=== PATIENT | female | born 1980 | race Caucasian/White ===

== ENCOUNTER 2020-10-03 14:08 | Outpatient (REF) | payer MEDICAID, SELFPAY | END 2020-10-03 14:09 | disposition home or self-care (01) | LOC: HO.LAB 14:08 | PROVIDERS: Visit Provider Internal Medicine | DX: Z20.828 Contact with and (suspected) exposure to other viral communicable diseases (principal) | CPT/HCPCS: 36415; C9803; U0003 ==

== ENCOUNTER 2020-12-14 15:18 | Outpatient (REF) | payer MEDICAID, SELFPAY | END 2020-12-14 15:19 | disposition home or self-care (01) | LOC: HO.LAB 15:18 | PROVIDERS: Visit Provider Internal Medicine | DX: Z20.822 Contact with and (suspected) exposure to COVID-19 (principal) | CPT/HCPCS: 36415; C9803; U0003; U0005 ==

== ENCOUNTER 2021-07-01 10:40 | Outpatient (REF) | payer MEDICAID, SELFPAY ==
--- NOTE | ~2021-07-01 | MM_ITS ---
EXAMINATION: MM SCREENING DIGITAL BREAST TOMOSYNTHESIS, BILATERAL CLINICAL INFORMATION: Screening. Asymptomatic. No prior breast imaging. Age 41. Family history breast cancer, maternal aunt. The lifetime risk of breast cancer based on the Tyrer-Cuzick Model is 11%. COMPARISON: None (current study represents initial baseline exam). TECHNIQUE: Digital breast tomosynthesis is performed in both the craniocaudal and mediolateral oblique views along with computer-aided detection (CAD). Synthesized 2D images are generated from the tomosynthesis. FINDINGS: There are scattered areas of fibroglandular density (ACR BI-RADS breast composition Category b). There are no significant masses, abnormal calcifications, or other abnormalities. There is no architectural abnormality. The axilla and skin contours are unremarkable. MM/MM tomosynthesis screening BI IMPRESSION: No mammographic evidence of malignancy. ASSESSMENT: BI-RADS 1: Negative RECOMMENDATION: Routine annual mammography screening. This patient's information was entered into a reminder system with a target due date for their next mammogram.
== END 2021-07-01 10:41 | disposition home or self-care (01) ==
LOC: HO.MAMMO 10:40
PROVIDERS: Visit Provider Nurse Practitioner
DX: Z12.31 Encounter for screening mammogram for malignant neoplasm of breast (principal)
CPT/HCPCS: 77063; 77067

== ENCOUNTER 2022-06-07 16:19 | Emergency (ER) | payer MEDICAID, SELFPAY ==
[2022-06-07 16:31] VITALS: BP 126/87; BP 142/72; PULSE 106; PULSE 96; TEMP 37.3; O2SAT 100; O2SAT 97; BMI 32.8
[2022-06-07] MEDS: 0.9 % Sodium Chloride 1,000 ML 999 ML IVCONT (16:53)
--- NOTE | 2022-06-07 17:22 | ED.WEAKNESS ---
HPI - Weakness General Chief complaint: Weakness Stated complaint: Weakness, muscle pain Time Seen by Provider: 06/07/22 16:34 Source: patient Mode of arrival: ambulatory Limitations: no limitations and language barrier History of Present Illness HPI Narrative: 41 yo female with history of fibromyalgia, HTN, and anemia presenting with 1 week of fatigue, weakness, muscle pains. Patient states she stop treatment for fibromyalgia many years ago, and has not had a similar episode in over a year. Patient states that she has no energy and has muscle pain ?all over ?. Denies fever, nausea, vomiting, chest pain, shortness breast, cough, abdominal pain, diarrhea, urinary frequency, burning. Reports normal appetite. Denies any relieving factors, has not tried any thing for pain control. Denies any falls, is still able to perform ADLs. MD Complaint: generalized weakness and lack of energy Onset (ago): week(s) Duration: constant Location: generalized Severity: moderate Quality: aching Relieving factors: none Exacerbating factors: none Context: history of similar Related Data Previous Rx's Medication Instructions Recorded naproxen 500 mg tablet 500 mg PO BID PRN pain #20 tabs 06/07/22 Allergies Allergy/AdvReac Type Severity Reaction Status Date / Time No Known Allergies Allergy Unverified 06/14/20 17:33 Review of Systems Review of Systems: Constitutional: No Fever, No Chills, +fatigue ENT/Mouth: No sore throat, No Rhinorrhea, No Swallowing Difficulty Eyes: No Eye Pain, No Swelling, No Redness Cardiovascular: No Chest Pain, No SOB, No Orthopnea, No Edema Respiratory: No Cough, No Sputum, No Wheezing, No dyspnea Gastrointestinal: No Nausea, No Vomiting, No Diarrhea, No abdominal Pain, No Hematochezia, No Melena Genitourinary: No Dysuria, No Urinary Frequency, No Hematuria Musculoskeletal: No joint pain, + Myalgias Skin: No Skin Lesions, No rash Neuro: + Weakness, No Numbness, No Dizziness, No Headache Psych: No Anxiety/Panic, No Depression Heme/Lymph: No Bruising, No Lymphadenopathy Endocrine: No Polyuria, No Polydipsia PMFSH Social History Social History Advance Directives: No Advance Directives Information Provided: Yes Physical Exam Vital Signs: Vital Signs: Last Vital Signs Temp 99.1 F 06/07/22 16:31 Pulse 96 06/07/22 16:31 BP 142/72 H 06/07/22 16:31 Pulse Ox 97 06/07/22 16:31 O2 Del Method 06/07/22 16:31 BMI result Body Mass Index 32.8 Const: Other: Appearance: Alert. Oriented X3. Appears tired. Eyes: Pupils equal, round and reactive to light. ENT: Pharynx normal. Neck: Normal inspection. Neck supple. CVS: Normal heart rate and rhythm. Pulses normal. Respiratory: No respiratory distress. Breath sounds normal. Abdomen: Soft, nondistended and nontender. +BS x4 Skin: Skin warm and dry. Normal skin color. Normal skin turgor. No rashes. Extremities: No lower extremity edema. Neuro: Oriented X 3. No motor deficit. No sensory deficit. Strength 2/5 diffusely no focal weakness, effort dependent Course Course Course Narrative: 41 yo female with history of fibromyalgia, HTN, and anemia presenting with 1 week of fatigue, weakness, muscle pains. Patient states she stop treatment for fibromyalgia many years ago, and has not had a similar episode in over a year. On exam, patient alert and oriented, no focal weakness, no neuro deficits. Labs remarkable for HGB 10.9, HCT 35.3 -which is her baseline. Reevaluation(s) Reevaluation #1: IV Toradol and p.o. Tylenol have been ordered for her body aches and headache. She is feeling better. Her workup was unremarkable, COVID is negative. She is stable for discharge home with plan to follow-up with her PCP, will also give referral for pain management as this is chronic underlying issue. Her symptoms due to uncontrolled and untreated fibromyalgia. Stable for MDM - Weakness Lab Data Result diagrams: 06/07/22 17:45 06/07/22 17:45 Labs: Lab Results 06/07/22 06/07/22 06/07/22 Range/Units 17:45 17:45 17:45 WBC 4.1 L (4.8-10.8) X10*3/uL RBC 4.20 (4.20-5.50) X10*6/uL Hgb 10.9 L (12.0-16.0) g/dl Hct 35.3 L (37.0-47.0) % MCV 84.0 (80.0-98.0) fL MCH 26.0 L (27.0-33.0) pg MCHC 30.9 L (31.0-35.0) g/dl RDW 14.3 (11.0-16.0) % Plt Count 226 (160-400) X10*3/uL MPV 10.9 (9.4-12.3) fL Immature Gran % (Auto) 0.2 (0.0-0.4) % Neut % (Auto) 46.1 (45-73) % Lymph % (Auto) 35.8 (20-40) % [place] % (Auto) 12.5 H (2-11) % Eos % (Auto) 4.7 H (0-4) % Baso % (Auto) 0.7 (0-2) % Lymph # (Auto) 1.5 (1.2-4.9) X10*3/uL [place] # (Auto) 0.5 (0.1-1.2) X10*3/uL Eos # (Auto) 0.2 (0.0-0.4) X10*3/uL Baso # (Auto) 0.0 (0.0-0.2) X10*3/uL Abs Immat Gran (auto) 0.01 (0.00-0.03) X10*3/uL Absolute Neuts (auto) 1.9 L (2.0-8.3) x10*3/uL Absolute Nucleated RBC 0.000 (0.0-0.012) X10*3/uL Nucleated RBC % (auto) 0.0 (0.0-0.2) /100WBC Sodium 139 (135-145) mmol/L Potassium 4.2 (3.3-5.1) mmol/L Chloride 105 (96-108) mmol/L Carbon Dioxide 26 (22-29) mmol/L Anion Gap 12 (12-20) BUN 12 (9-16) mg/dL Creatinine 0.80 (0.5-1.4) mg/dL Estim Creat Clear Calc 94.0 Estimated GFR > 60 Random Glucose 105 (60-115) mg/dL Calcium 8.5 (8.4-10.2) mg/dL Magnesium 1.7 (1.6-2.6) mg/dL Total Bilirubin 0.2 (0.0-1.0) mg/dL Direct Bilirubin < 0.2 (0.0-0.5) mg/dL AST 14 (5-31) U/L ALT 13 (0-31) U/L Alkaline Phosphatase 63 (39-117) U/L Total Protein 6.9 (6.5-8.0) g/dL Albumin 3.7 (3.5-5.0) g/dL Lipase 34 (8-78) U/L COVID-19 (DELILAH) Negative (Negative) COVID-19 Clin Com See Note Critical Care Time Critical Care Time Critical Care Time: No Discharge Plan Discharge Clinical Impression: Fibromyalgia Patient Disposition: Home, Self-Care Instructions: Fibromyalgia (ED) Additional Instructions: Your lab workup today was unremarkable. Urine negative for COVID-19. Recommend taking Tylenol 975 mg every 6 hours as needed for body aches and headaches. Recommend taking the prescribed anti-inflammatory pain medication as needed for body aches and pains. Recommend following up with your PCP for further evaluation treatment. Prescriptions: New naproxen 500 mg tablet 500 mg PO BID PRN (Reason: pain) Qty: 20 0RF Referrals: [facility] [place] [facility] [Provider Group] Emi Monteiro [Primary Care Provider] - Print Language: Croatian
[2022-06-07] MEDS: ondansetron HCL 4 MG/2 ML VIAL IVPUSH (17:44)
[2022-06-07 17:50] LABS: MANUAL DIFF FLAG NO
[2022-06-07 17:55] LABS: Basophils Percent Auto 0.7 % (0-2); Eosinophils Absolute Auto 0.2 X10*3/uL (0.0-0.4); Eosinophils Percent Auto 4.7 % (0-4); Hematocrit 35.3 % (37.0-47.0); Hemoglobin 10.9 g/dl (12.0-16.0); Imm Gran Abs Auto 0.01 X10*3/uL (0.00-0.03); Imm Gran Pct Auto 0.2 % (0.0-0.4); Lymphocytes Absolute Auto 1.5 X10*3/uL (1.2-4.9); Lymphocytes Percent Auto 35.8 % (20-40); Mean Corpuscular HGB Conc 30.9 g/dl (31.0-35.0); Mean Platelet Volume 10.9 fL (9.4-12.3); Monocytes Absolute Auto 0.5 X10*3/uL (0.1-1.2); Monocytes Percent Auto 12.5 % (2-11); Neutrophils Absolute Auto 1.9 x10*3/uL (2.0-8.3); Neutrophils Percent Auto 46.1 % (45-73); Platelet Count 226 X10*3/uL (160-400); Red Cell Distribution Width 14.3 % (11.0-16.0); White Blood Count 4.1 X10*3/uL (4.8-10.8)
[2022-06-07 18:09] LABS: Alanine Aminotransferase 13 U/L (0-31); Albumin Level 3.7 g/dL (3.5-5.0); Alkaline Phosphatase 63 U/L (39-117); Anion Gap 12 (12-20); Aspartate Amino Transferase 14 U/L (5-31); Bilirubin Direct < 0.2 mg/dL (0.0-0.5); Bilirubin Total 0.2 mg/dL (0.0-1.0); Blood Urea Nitrogen 12 mg/dL (9-16); COVID-19 Test Negative (Negative); Calcium 8.5 mg/dL (8.4-10.2); Carbon Dioxide 26 mmol/L (22-29); Chloride 105 mmol/L (96-108); Estimated Glomerular Filt Rate > 60; Glucose Random 105 mg/dL (60-115); IDNOW Serial# 16C4AD1C; Lipase 34 U/L (8-78); Magnesium 1.7 mg/dL (1.6-2.6); Potassium 4.2 mmol/L (3.3-5.1); Sodium 139 mmol/L (135-145); Total Protein 6.9 g/dL (6.5-8.0)
[2022-06-07] MEDS: Acetaminophen 325 MG TABLET 975 MG PO (19:57)
[2022-06-07] MEDS: Ketorolac Tromethamine 30 MG/ML VIAL IVPUSH (19:58)
== END 2022-06-07 20:02 | disposition home or self-care (01) ==
PROVIDERS: Physician Assistant; Emergency Provider Internal Medicine; PCP Nurse Practitioner
DX: M79.7 Fibromyalgia (principal); R53.1 Weakness; Z20.822 Contact with and (suspected) exposure to COVID-19
CPT/HCPCS: 80048; 80076; 83690; 83735; 85025; 87635; 96374; 96375; 99283; 99284; J1885; J2405

== ENCOUNTER 2024-02-06 21:26 | Emergency (ER) | payer MEDICAID, SELFPAY ==
[2024-02-06 21:44] VITALS: BP 144/73; BP 169/80; PULSE 124; PULSE 28; RESP 18; TEMP 36.7; O2SAT 100; BMI 26.6
--- NOTE | 2024-02-06 21:50 | PC.NURSE ---
pt biba from home, a&ox4, respirations even and unlabored. engineering intern at bedside. pt reporting onset of facial and hand numbness with anxiety. per ems, on arrival pt family reported pt had syncopal episode. pt denies hx of anxiety in the past. pt denies chest pain, n/v/d. pt denies si/hi.
--- NOTE | 2024-02-06 22:38 | ECG_ITS ---
Test Reason : ANXIETY Blood Pressure : / mmHG Vent. Rate : 105 BPM Atrial Rate : 105 BPM P-R Int : 144 ms QRS Dur : 086 ms QT Int : 344 ms P-R-T Axes : 038 047 016 degrees QTc Int : 454 ms Sinus tachycardia Otherwise normal ECG When compared with ECG of 29-MAR-2011 02:47, No significant change was found Referred By: Jasmyn Quintana Electronically Signed By:Hai Roach
--- NOTE | 2024-02-06 22:39 | ED_ITS ---
HPI - General Adult General Chief complaint: Anxiety Stated complaint: anxiety attack Time Seen by Provider: 02/06/24 22:14 Source: patient, family and seismic interpreter Mode of arrival: ambulatory Limitations: no limitations History of Present Illness HPI narrative: 43-year-old female brought in by ambulance from home for a possible anxiety symptoms. Patient currently going through stressful events and being upset for her father who is in [facility] ICU in critical condition, patient was witnessed by her family to be anxious, tearful and crying, hyperventilating, the patient started to feel numbness in her face and both hands and both feet. Related Data Previous Rx's ?Medication ?Instructions ?Recorded naproxen 500 mg tablet 500 mg PO BID PRN pain #20 tabs 06/07/22 Allergies Allergy/AdvReac Type Severity Reaction Status Date / Time No Known Allergies Allergy Verified 02/06/24 21:46 Review of Systems 2 Review of Systems: All other systems are reviewed and are negative Constitutional: Reports as per HPI and Reports no additional constitutional complaints Eyes: Reports as per HPI and Reports no additional eye complaints Reports system reviewed and no additional complaints, except as documented Cardiovascular: Reports as per HPI and Reports no additional cardiovascular complaints Respiratory: Reports as per HPI and Reports no additional respiratory complaints Gastrointestinal: Reports as per HPI and Reports no additional gastrointestinal complaints Genitourinary: Reports no additional female genitourinary complaints Musculoskeletal: Reports no additional musculoskeletal complaints Skin/Breast: Reports system reviewed and no additional complaints, except as docu Psychiatric: Reports no additional psychiatric complaints Endocrine: Reports no additional endocrine complaints Hematologic/Lymphatic: Reports no additional hematologic/lymphatic complaints Allergic/Immunologic: Reports no additional allergic/immunologic complaints Reports system reviewed and no additional complaints, except as documented and Reports Abnormal speech present [facility] Social History Social History Smoked in Last 30 Days: No Use of substances other than those prescribed or required for medical reasons: No Advance Directives: No Advance Directives Information Provided: No Do you have a plan to hurt others: No Plan Patient : No Physical Exam ED Vital Signs: Vital Signs - 24 hr 02/06/24 21:44 02/06/24 23:01 Temperature 98.0 F 98.6 F Pulse Rate 124 H 101 H Respiratory Rate 18 20 Blood Pressure 169/80 H 149/83 H Pulse Oximetry 100 98 Oxygen Delivery Method Room Air Room Air BMI result Body Mass Index 26.6 Vital signs have been reviewed and appear to be correct. Blood pressure elevated. Heart rate normal. Respiratory rate normal. Temperature normal. Oxygen saturation normal. Appearance: Alert. Oriented X3. No acute distress. Head: Normal external exam. Normocephalic. Atraumatic. No Fontenot signs noted. No raccoon eyes noted Eyes: PERRLA. EOMI. Conjunctiva and sclera normal. Eyelids normal. ENT: TM's Normal. Pharynx normal. Uvula midline. Moist mucous membranes. No trismus noted. No drooling noted. No muffled voice noted. Neck: Normal inspection. Neck supple. FROM. No adenopathy. Thyroid Normal. No meningeal signs. No neck mass noted. CVS: Normal heart rate and rhythm. Heart sound normal. No murmurs noted. Pulses normal throughout. Respiratory: No respiratory distress. Painless inspiration. Breath sounds normal. No wheezes/rales/rhonchi noted. Chest nontender. No accessory muscle usage noted or decreased air movement noted. Abdomen: Soft and nontender. Bowel sounds normal in all 4 quadrants. No distention noted. No organomegaly noted. No visible injury noted. Back: No CVA tenderness. Full range of motion noted. Skin: Skin warm and dry. Normal skin color. Normal skin turgor. No rashes/lesions/lacerations noted. Extremities: No lower extremity edema. Extremities exhibit normal range of motion. Extremities nontender. Neuro: Oriented X 3. Cranial nerve exam: II-XII are grossly intact No motor deficit. No sensory deficit. Reflexes normal. NIH Stroke Scale Internal: Initial- Upon Arrival Time: 23:01 Level of Consciousness: Alert Level of Consciousness Questions: Answers both questions correctly Level of Consciousness Commands: Performs both tasks correctly Best Gaze: Normal Visual: No visual loss Facial Palsy: Normal Motor Arm (Right): No drift Motor Arm (Left): No drift Motor Leg (Right): No drift Motor Leg (Left): No drift Limb Ataxia: Absent Sensory: Normal Best Language: No aphasia Dysarthia: Normal Extinction and Inattention: No abnormality Score: 0 Course Reevaluation(s) Reevaluation #1: 43-year-old female came in after feeling stress life with acute panic attack with hyperventilation. Patient in the ED with received Ativan 2 mg and feels better now. No SI, no HI, no AVH. Time: 00:22 Medications Administered Discontinued Medications Generic Name Dose Route Start Last Admin Trade Name Regina PRN Reason Stop Dose Admin Lorazepam 2 mg 02/06/24 22:38 02/06/24 22:52 Lorazepam 1 Mg Tablet PO 02/06/24 22:39 2 mg ONCE ONE Administration Medical Decision Making Differential Diagnosis Differential Diagnoses: The differential diagnosis associated with the presentation includes (Anxiety, panic attack, ACS, CVA, electrolyte derangement, severe anemia.) Admission/Observation Consideration of admission/observation: Escalation of care including admission/observation considered Lab Data MDM Lab Attestation statement: I reviewed the patient's lab results. 02/06/24 23:00 02/06/24 23:00 Labs: Lab Results 02/06/24 Range/Units 23:00 WBC 5.8 (4.8-10.8) X10*3/uL RBC 4.58 (4.20-5.50) X10*6/uL Hgb 12.3 (12.0-16.0) g/dl Hct 38.0 (37.0-47.0) % MCV 83.0 (80.0-98.0) fL MCH 26.9 L (27.0-33.0) pg MCHC 32.4 (31.0-35.0) g/dl RDW 14.6 (11.0-16.0) % Plt Count 269 (160-400) X10*3/uL MPV 10.4 (9.4-12.3) fL Immature Gran % (Auto) 0.3 (0.0-0.4) % Neut % (Auto) 57.5 (45-73) % Lymph % (Auto) 29.3 (20-40) % [place] % (Auto) 8.9 (2-11) % Eos % (Auto) 3.1 (0-4) % Baso % (Auto) 0.9 (0-2) % Lymph # (Auto) 1.7 (1.2-4.9) X10*3/uL [place] # (Auto) 0.5 (0.1-1.2) X10*3/uL Eos # (Auto) 0.2 (0.0-0.4) X10*3/uL Baso # (Auto) 0.1 (0.0-0.2) X10*3/uL Abs Immat Gran (auto) 0.02 (0.00-0.03) X10*3/uL Absolute Neuts (auto) 3.4 (2.0-8.3) x10*3/uL Absolute Nucleated RBC 0.000 (0.0-0.012) X10*3/uL Nucleated RBC % (auto) 0.0 (0.0-0.2) /100WBC Sodium 140 (135-145) mmol/L Potassium 3.2 L (3.3-5.1) mmol/L Chloride 102 (96-108) mmol/L Carbon Dioxide 26 (22-29) mmol/L Anion Gap 15 (12-20) BUN 16 (9-16) mg/dL Creatinine 0.79 (0.5-1.4) mg/dL Estim Creat Clear Calc 84.1 Estimated GFR > 60 Random Glucose 104 (60-115) mg/dL Calcium 9.5 D (8.4-10.2) mg/dL Total Bilirubin 0.4 (0.0-1.0) mg/dL Direct Bilirubin 0.1 (0.0-0.5) mg/dL AST 16 (5-31) U/L ALT 10 (0-31) U/L Alkaline Phosphatase 62 (39-117) U/L Troponin I High Sens < 2.7 (<3.5-17.0) ng/L Total Protein 8.4 H (6.5-8.0) g/dL Albumin 4.3 (3.5-5.0) g/dL Lipase 25 (8-78) U/L Chronic Conditions Patient?s care impacted by: Other (Anxiety) Discharge Plan Discharge Clinical Impression: Acute anxiety, Hyperventilation, Acute hypokalemia Patient Disposition: Home, Self-Care Instructions: Hyperventilation (ED), Hypokalemia (ED) Prescriptions: No Action naproxen 500 mg tablet 500 mg PO BID PRN (Reason: pain) Qty: 20 0RF Print Language: Mohawk
[2024-02-06] MEDS: LORazepam 1 MG TABLET 2 MG PO (22:52)
--- NOTE | 2024-02-06 22:55 | PC.NURSE ---
pt medicated per mar, pt tolerated well with water.
[2024-02-06 23:01] VITALS: BP 149/83; PULSE 101; RESP 20; TEMP 37; O2SAT 98
[2024-02-06 23:06] LABS: MANUAL DIFF FLAG NO
[2024-02-06 23:07] LABS: Basophils Absolute Auto 0.1 X10*3/uL (0.0-0.2); Basophils Percent Auto 0.9 % (0-2); Eosinophils Absolute Auto 0.2 X10*3/uL (0.0-0.4); Eosinophils Percent Auto 3.1 % (0-4); Hemoglobin 12.3 g/dl (12.0-16.0); Imm Gran Abs Auto 0.02 X10*3/uL (0.00-0.03); Imm Gran Pct Auto 0.3 % (0.0-0.4); Lymphocytes Absolute Auto 1.7 X10*3/uL (1.2-4.9); Lymphocytes Percent Auto 29.3 % (20-40); Mean Corpuscular HGB Conc 32.4 g/dl (31.0-35.0); Mean Corpuscular Hemoglobin 26.9 pg (27.0-33.0); Mean Platelet Volume 10.4 fL (9.4-12.3); Monocytes Absolute Auto 0.5 X10*3/uL (0.1-1.2); Monocytes Percent Auto 8.9 % (2-11); Neutrophils Absolute Auto 3.4 x10*3/uL (2.0-8.3); Neutrophils Percent Auto 57.5 % (45-73); Platelet Count 269 X10*3/uL (160-400); Red Blood Count 4.58 X10*6/uL (4.20-5.50); Red Cell Distribution Width 14.6 % (11.0-16.0); White Blood Count 5.8 X10*3/uL (4.8-10.8)
[2024-02-06 23:21] LABS: Alanine Aminotransferase 10 U/L (0-31); Albumin Level 4.3 g/dL (3.5-5.0); Alkaline Phosphatase 62 U/L (39-117); Anion Gap 15 (12-20); Aspartate Amino Transferase 16 U/L (5-31); Bilirubin Direct 0.1 mg/dL (0.0-0.5); Bilirubin Total 0.4 mg/dL (0.0-1.0); Blood Urea Nitrogen 16 mg/dL (9-16); Calcium 9.5 mg/dL (8.4-10.2); Carbon Dioxide 26 mmol/L (22-29); Chloride 102 mmol/L (96-108); Creatinine Clr Calc Pharmacy 84.1; Estimated Glomerular Filt Rate > 60; Glucose Random 104 mg/dL (60-115); Lipase 25 U/L (8-78); Potassium 3.2 mmol/L (3.3-5.1); Sodium 140 mmol/L (135-145); Total Protein 8.4 g/dL (6.5-8.0)
[2024-02-06 23:28] LABS: Troponin-I High Sensitivity < 2.7 ng/L (<3.5-17.0)
[2024-02-07] MEDS: Potassium Chloride Packet 20 MEQ PACKET 40 MEQ PO (00:41)
[2024-02-07 00:43] VITALS: BP 149/83; PULSE 98; RESP 20; TEMP 37; O2SAT 98
== END 2024-02-07 00:44 | disposition home or self-care (01) ==
PROVIDERS: Emergency Provider Emergency Medicine
DX: F41.9 Anxiety disorder, unspecified (principal); R06.4 Hyperventilation; E87.6 Hypokalemia; F41.0 Panic disorder [episodic paroxysmal anxiety]
CPT/HCPCS: 36415; 80048; 80076; 83690; 84484; 85025; 93005; 99283; 99285

== ENCOUNTER → 2024-02-06 22:38 | Outpatient (BNV) | payer MEDICAID, SELFPAY | PROVIDERS: Emergency Provider Emergency Medicine; Visit Provider Internal Medicine Cardiovascular Disease | DX: R00.0 Tachycardia, unspecified (principal) | CPT/HCPCS: 93010 ==

== ENCOUNTER 2024-02-25 22:20 | Emergency (ER) | payer MEDICAID, SELFPAY ==
[2024-02-25 22:47] VITALS: BP 146/92; BP 158/84; PULSE 104; PULSE 86; RESP 18; TEMP 37.1; O2SAT 100; BMI 26.6
--- NOTE | 2024-02-25 23:53 | PC.NURSE ---
supplementary note: patient reports no recent drug etoh use, patient reports periodic sleep issues, denies hallucinations. denies all thought or plan to hurt self or others. patient has recently not been med compliant.
[2024-02-26 00:03] LABS: Basophils Percent Auto 0.8 % (0-2); Eosinophils Absolute Auto 0.2 X10*3/uL (0.0-0.4); Eosinophils Percent Auto 4.7 % (0-4); Hemoglobin 11.5 g/dl (12.0-16.0); Imm Gran Abs Auto 0.02 X10*3/uL (0.00-0.03); Imm Gran Pct Auto 0.4 % (0.0-0.4); Lymphocytes Absolute Auto 1.7 X10*3/uL (1.2-4.9); Lymphocytes Percent Auto 33.8 % (20-40); MANUAL DIFF FLAG NO; Mean Corpuscular HGB Conc 31.9 g/dl (31.0-35.0); Mean Corpuscular Hemoglobin 26.9 pg (27.0-33.0); Mean Corpuscular Volume 84.3 fL (80.0-98.0); Mean Platelet Volume 10.7 fL (9.4-12.3); Monocytes Absolute Auto 0.5 X10*3/uL (0.1-1.2); Monocytes Percent Auto 9.6 % (2-11); Neutrophils Absolute Auto 2.6 x10*3/uL (2.0-8.3); Neutrophils Percent Auto 50.7 % (45-73); Platelet Count 236 X10*3/uL (160-400); Red Blood Count 4.27 X10*6/uL (4.20-5.50); Red Cell Distribution Width 14.9 % (11.0-16.0); White Blood Count 5.1 X10*3/uL (4.8-10.8)
[2024-02-26 00:04] LABS: Appearance Urine Clear; Color Urine Yellow; Glucose Urine UA Negative (Negative); Leukocyte Esterase Urine Negative (Negative); Nitrite Urine Negative (Negative); UMIC TRIGGER UACC YES; Urine Blood Small (1+) (Negative); Urine Ketones Negative (Negative); Urine Protein Negative (Neg-Trace)
[2024-02-26 00:18] LABS: Bacteria Urine None Seen (None Seen); Hyaline Casts Urine 0-2 /LPF (0-2); RBC Urine 0-2 /HPF (0-2); Squamous Epithelial Cell Urine 0-2 /HPF (0-2); WBC Urine 0-5 /HPF (0-5)
[2024-02-26 00:19] LABS: Alanine Aminotransferase 8 U/L (0-31); Albumin Level 3.8 g/dL (3.5-5.0); Alkaline Phosphatase 56 U/L (39-117); Anion Gap 11 (12-20); Aspartate Amino Transferase 13 U/L (5-31); Bilirubin Total 0.1 mg/dL (0.0-1.0); Blood Urea Nitrogen 16 mg/dL (9-16); Calcium 8.9 mg/dL (8.4-10.2); Carbon Dioxide 27 mmol/L (22-29); Chloride 106 mmol/L (96-108); Creatinine Clr Calc Pharmacy 97.7; Estimated Glomerular Filt Rate > 60; Ethanol < 10 mg/dL; Glucose Random 125 mg/dL (60-115); Potassium 3.4 mmol/L (3.3-5.1); Sodium 141 mmol/L (135-145); Total Protein 7.3 g/dL (6.5-8.0)
[2024-02-26 00:21] LABS: Amphetamine Screen Urine Not Detected (Not Detect); Barbiturates, Urine Not Detected (Not Detect); Benzodiazepines Screen Urine Not Detected (Not Detect); Buprenorphine Scr Not Detected (Not Detect); Cannabinoid Screen Urine Not Detected (Not Detect); Cocaine Screen Urine Not Detected (Not Detect); Fentanyl, urine Not Detected (Not Detect); Methadone Screen, Urine Not Detected (Not Detect); Opiate Screen Urine Not Detected (Not Detect); Oxycodone Screen Urine Not Detected (Not Detect); Phencyclidine Screen Urine Not Detected (Not Detect)
--- NOTE | 2024-02-26 01:52 | ED.PSYCH ---
HPI - Psych General Chief Complaint: Psychiatric Symptoms Stated Complaint: depression, panic attack,non med compliant Time Seen by Provider: 02/26/24 00:15 Source: patient and EMS Mode of arrival: EMS Limitations: no limitations History of Present Illness ED Provider: Dr. Arleth Proctor HPI Narrative: Patient comes to the emergency room via ambulance complaining of a panic attack. Patient states that she has her father in the ICU, very sick, hospice. Patient states that she has not suicidal or homicidal. Patient got recently prescribed medications for anxiety. Patient states that today was the 1st time that she picked him up and started her treatment. Patient states that she feels very stressed and said about her father, patient worried about her kids at home. Related Data Previous Rx's ?Medication ?Instructions ?Recorded naproxen 500 mg tablet 500 mg PO BID PRN pain #20 tabs 06/07/22 Allergies Allergy/AdvReac Type Severity Reaction Status Date / Time No Known Allergies Allergy Verified 02/25/24 22:51 Review of Systems Review of Systems: Constitutional : No Weight loss, No Fever, No Chills, No Night Sweats, No Fatigue, No Malaise ENT/Mouth : No Hearing loss, No Ear Pain, No Nasal Congestion, No Sinus Pain, No Hoarseness, No sore throat, No Rhinorrhea, No Swallowing Difficulty Eyes: No Eye Pain, No Swelling, No Redness, No Foreign Body, No Discharge, No Vision Changes Cardiovascular : No Chest Pain, No SOB, No Dyspnea on Exertion, No Orthopnea, No Edema, No Palpitations Respiratory : No Cough, No Sputum, No Wheezing, No Smoke Exposure, No Dyspnea Gastrointestinal : No Nausea, No Vomiting, No Diarrhea, No Constipation, No abdominal Pain, No Hematochezia, No Melena Genitourinary : no irregular bleeding, No Dysuria, No Urinary Frequency, No Hematuria, No Urinary Incontinence, No Urgency, No Flank Pain, No Urinary Flow Changes, No Hesitancy Musculoskeletal : No joint pain, No Myalgias, No Joint Swelling Skin : No Skin Lesions, No rash Neuro : No Weakness, No Numbness, No Paresthesias, No Loss of Consciousness, No Dizziness, No Headache Psych : Complaining of anxiety, very stressed, no SI or HI Heme/Lymph: No Bruising, No Bleeding,No Lymphadenopathy Endocrine : No Polyuria, No Polydipsia, No Temperature Intolerance PMFSH Past Medical History Medical History Acute anxiety Social History Social History Advance Directives: No Advance Directives Information Provided: Yes Do you have a plan to hurt others: No Plan Physical Exam Vital Signs: Vital Signs: Last Vital Signs Temp 98.7 F 02/25/24 22:47 Pulse 86 02/25/24 22:47 Resp 18 02/25/24 22:47 BP 158/84 H 02/25/24 22:47 Pulse Ox 100 02/25/24 22:47 O2 Del Method Room Air 02/25/24 22:47 BMI result Body Mass Index 26.6 Const: Other: Appearance: Alert. Oriented X3. No acute distress. Eyes: Pupils equal, round and reactive to light. ENT: Pharynx normal. Neck: Normal inspection. Neck supple. No lymph nodes noted. No crepitus CVS: Normal heart rate and rhythm. Pulses normal. Normal S1 and S2 Respiratory: No respiratory distress. Breath sounds normal. No Wheezing. No rales Abdomen: Soft and nontender. No rigidity. No distention. Skin: Skin warm and dry. Normal skin color. Normal skin turgor. Extremities: No lower extremity edema. No Lacerations. No Rash Neuro: Oriented X 3. No motor deficit. No sensory deficit. Moving all extremities. No slurred speech. CN 2 through 12 grossly intact Psych: calm, cooperative, normal affect Medical Decision Making Medical Decision Making MDM Narrative: My interpretation of labs, normal hematology chemistry, toxicology negative, EtOH negative -patient denies SI or HI. Patient states that she started taking her treatment for anxiety today. Patient states that she had a panic attack but feels much better. Patient requesting to be discharged, needs to go visit her father in the ICU and make sure that her 3 kids are all set at home -patient is not SI no HI, section 12 not indicated. -per patient's request, patient being discharged Differential Diagnosis Differential Diagnoses: The differential diagnosis associated with the presentation includes (Anxiety, panic attack) Lab Data 02/25/24 23:56 02/25/24 23:56 Labs: Lab Results 02/25/24 02/25/24 Range/Units 23:55 23:56 WBC 5.1 (4.8-10.8) X10*3/uL RBC 4.27 (4.20-5.50) X10*6/uL Hgb 11.5 L (12.0-16.0) g/dl Hct 36.0 L (37.0-47.0) % MCV 84.3 (80.0-98.0) fL MCH 26.9 L (27.0-33.0) pg MCHC 31.9 (31.0-35.0) g/dl RDW 14.9 (11.0-16.0) % Plt Count 236 (160-400) X10*3/uL MPV 10.7 (9.4-12.3) fL Immature Gran % (Auto) 0.4 (0.0-0.4) % Neut % (Auto) 50.7 (45-73) % Lymph % (Auto) 33.8 (20-40) % [place] % (Auto) 9.6 (2-11) % Eos % (Auto) 4.7 H (0-4) % Baso % (Auto) 0.8 (0-2) % Lymph # (Auto) 1.7 (1.2-4.9) X10*3/uL [place] # (Auto) 0.5 (0.1-1.2) X10*3/uL Eos # (Auto) 0.2 (0.0-0.4) X10*3/uL Baso # (Auto) 0.0 (0.0-0.2) X10*3/uL Abs Immat Gran (auto) 0.02 (0.00-0.03) X10*3/uL Absolute Neuts (auto) 2.6 (2.0-8.3) x10*3/uL Absolute Nucleated RBC 0.000 (0.0-0.012) X10*3/uL Nucleated RBC % (auto) 0.0 (0.0-0.2) /100WBC Sodium 141 (135-145) mmol/L Potassium 3.4 (3.3-5.1) mmol/L Chloride 106 (96-108) mmol/L Carbon Dioxide 27 (22-29) mmol/L Anion Gap 11 L (12-20) BUN 16 (9-16) mg/dL Creatinine 0.76 (0.5-1.4) mg/dL Estim Creat Clear Calc 97.7 Estimated GFR > 60 Random Glucose 125 H (60-115) mg/dL Calcium 8.9 D (8.4-10.2) mg/dL Total Bilirubin 0.1 (0.0-1.0) mg/dL AST 13 (5-31) U/L ALT 8 (0-31) U/L Alkaline Phosphatase 56 (39-117) U/L Total Protein 7.3 (6.5-8.0) g/dL Albumin 3.8 (3.5-5.0) g/dL Urine Color Yellow Urine Appearance Clear Urine pH 8.0 (5.0-9.0) Ur Specific [place] 1.010 (1.005-1.025) Urine Protein Negative (Neg-Trace) mg/dL Urine Glucose (UA) Negative (Negative) mg/dL Urine Ketones Negative (Negative) mg/dL Urine Blood Small (1+) H (Negative) Urine Nitrite Negative (Negative) Ur Leukocyte Esterase Negative (Negative) Urine RBC 0-2 (0-2) /HPF Urine WBC 0-5 (0-5) /HPF Ur Squamous Epith Cells 0-2 (0-2) /HPF Urine Bacteria None Seen (None Seen) Hyaline Casts 0-2 (0-2) /LPF Urine Opiates Screen Not Detected (Not Detect) Ur Buprenorphine Scrn Not Detected (Not Detect) ng/mL Ur Oxycodone Screen Not Detected (Not Detect) ng/mL Urine Methadone Screen Not Detected (Not Detect) ng/mL Urine Fentanyl Screen Not Detected (Not Detect) Ur Barbiturates Screen Not Detected (Not Detect) Ur Phencyclidine Scrn Not Detected (Not Detect) Ur Amphetamines Screen Not Detected (Not Detect) U Benzodiazepines Scrn Not Detected (Not Detect) Urine Cocaine Screen Not Detected (Not Detect) U Marijuana (THC) Screen Not Detected (Not Detect) Ethyl Alcohol < 10 mg/dL Discharge Plan Discharge Clinical Impression: Acute anxiety Patient Disposition: Home, Self-Care Instructions: Anxiety (ED) Additional Instructions: Please follow-up with your primary care physician tomorrow. If you have any worsening or new symptoms, please return to the emergency room or call 911 Prescriptions: No Action naproxen 500 mg tablet 500 mg PO BID PRN (Reason: pain) Qty: 20 0RF Interventions: [place]-Suicide Risk Severity Scale Last Done: 02/26/24 01:52 Print Language: German
[2024-02-26 02:01] VITALS: BP 165/81; PULSE 88; RESP 16; TEMP 36.5; O2SAT 100
[2024-02-26 02:10] VITALS: BP 165/81; PULSE 88; RESP 16; TEMP 36.5; O2SAT 100
== END 2024-02-26 02:11 | disposition home or self-care (01) ==
PROVIDERS: Emergency Provider Emergency Medicine
DX: F41.9 Anxiety disorder, unspecified (principal)
CPT/HCPCS: 36415; 80053; 80307; 81001; 85025; 99283

== ENCOUNTER 2024-06-02 10:07 | Outpatient (REF) | payer MEDICAID, SELFPAY ==
[2024-06-02 11:32] LABS: MANUAL DIFF FLAG NO
[2024-06-02 11:36] LABS: Eosinophils Absolute Auto 0.2 X10*3/uL (0.0-0.4); Eosinophils Percent Auto 4.3 % (0-4); Hematocrit 36.6 % (37.0-47.0); Hemoglobin 11.6 g/dl (12.0-16.0); Imm Gran Abs Auto 0.01 X10*3/uL (0.00-0.03); Imm Gran Pct Auto 0.3 % (0.0-0.4); Lymphocytes Absolute Auto 1.7 X10*3/uL (1.2-4.9); Lymphocytes Percent Auto 42.3 % (20-40); Mean Corpuscular HGB Conc 31.7 g/dl (31.0-35.0); Mean Corpuscular Hemoglobin 26.5 pg (27.0-33.0); Mean Corpuscular Volume 83.6 fL (80.0-98.0); Mean Platelet Volume 11.5 fL (9.4-12.3); Monocytes Absolute Auto 0.4 X10*3/uL (0.1-1.2); Monocytes Percent Auto 11.2 % (2-11); Neutrophils Absolute Auto 1.6 x10*3/uL (2.0-8.3); Neutrophils Percent Auto 40.9 % (45-73); Platelet Count 235 X10*3/uL (160-400); Red Blood Count 4.38 X10*6/uL (4.20-5.50); Red Cell Distribution Width 14.6 % (11.0-16.0); White Blood Count 3.9 X10*3/uL (4.8-10.8)
[2024-06-02 12:16] LABS: Anion Gap 10 (12-20); Blood Urea Nitrogen 12 mg/dL (9-16); Calcium 9.5 mg/dL (8.4-10.2); Carbon Dioxide 27 mmol/L (22-29); Chloride 104 mmol/L (96-108); Estimated Glomerular Filt Rate > 60; Glucose Random 100 mg/dL (60-115); Sodium 137 mmol/L (135-145); TSH reflex Free T4 1.53 uIU/mL (0.32-4.0); Vitamin D 25-OH Total 26.6 ng/mL (>30)
[2024-06-02 12:17] LABS: Creatinine Urine 179.85 mg/dL; Microalbum/Creatinine Ratio Ur 3.8 ug/mg cr (<30)
== END 2024-06-02 10:08 | disposition home or self-care (01) ==
LOC: HO.HHCL 10:07
PROVIDERS: Visit Provider Nurse Practitioner Primary Care
DX: R52 Pain, unspecified (principal); I10 Essential (primary) hypertension; K59.00 Constipation, unspecified
CPT/HCPCS: 36415; 80048; 82043; 82306; 82570; 84443; 85025

== ENCOUNTER 2024-11-25 11:05 | Outpatient (REF) | payer MEDICAID, SELFPAY ==
--- OUTSIDE RECORDS SUMMARY | 2024-11-25 12:58 | XMS_ITS | Encounter Summary ---
Author Organization [employer] Address [address] [facility] [address] [place] [address] Care Team Providers Care Button Station Worker Name Role Phone Sabi Briceño MD Primary Care Pro vider Reason for Referral * Imaging (Routine) - Authorized Specialty Diagnoses / Procedures Referred By Contjose eduardo t Referred To Contact Radiology Diagnoses Screening mammogram for breast cancer Procedures BI Mammogram Screening Tomosynthesis Bilateral Ashlee Hills MD [address] [place] [address] Phone: tel: fax: [facility] [address] [place] [address] Phone: tel: fax: Referral ID Status Reason Start Date Expiration Date V isits Requested Visits Authorized [id number] Authorized 11/25/2024 11/25/2025 1 1 * Consultation (Routine) - Authorized Specialty Diagnoses / Procedures Referred By Contac t Referred To Contact Gastroenterology Diagnoses Screen for colon cancer Ashlee Hills MD [address] [place] [address] Phone: tel: fax: [facility] [address] [place], [place] Phone: tel: fax: Referral ID Status Reason Start Date Expiration Date Visits Requested Visits Authorized [id number] Authorized Specialty Services Required 11/25/2024 11/25/2025 6 6 * Consultation (Routine) - Closed Specialty Diagnoses / Procedures Referred By Jennifer biswas Referred To Contact Optometry Diagnoses Blurry vision Ashlee Hills MD [address] [place] [address] Phone: tel: fax: [facility] OPTOMETRY [address] [place] [address] Phone: tel: fax: Referral ID Status Reason Start Date Expiration Date V isits Requested Visits Authorized [id number] Closed Consult and Treat 11/25/2024 11/25/2025 1 1 Reason for Visit * Reason Comments Annual Exam Encounter Details Date Type Department Care Team (Late st Contact Info) Description 11/25/2024 10:30 AM EST Office Visit [facility] MEDICINE [address] [place] [address] Ashlee Hills MD [address] [place] [address] Class 1 obesity with serious comorbidity and body mass index (BMI) of 33.0 to 33.9 in adult, unspecified obesity type (Primary Dx); 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 (CMS/HCC); Dietary counseling; Exercise counseling; Blurry vision; Screen for colon cancer; Screening mammogram for breast cancer; Fibromyalgia; Primary hypertension Social History Tobacco Use Types Packs/Day Years Used Date Smoking Tobacco: Never Passive Smoke Exposure: Never Smokeless Tobacco: Never Tobacco Cessation:Counseling Given: Not Answered Alcohol Use Standard Drinks/Week Comments Not Currently 0 (1 standard drink = 0.6 oz pur e alcohol) Alcohol Answer Date Recorded How often do you have a drink containing alcohol ? 0 11/25/2024 How many drinks containing a lcohol do you have on a typical day when you are drinking? 0 11/25/2024 How often do you have six or more drinks on one occasion? 0 11/25/2024 Depression Answer Date Recorded Patient Health Questionnaire-9 Score 13 02/19/2024 Patient Health Questionnaire-9 Score 13 02/19/2024 Last PHQ-9: Questionnaire Data Not on file 0 02/19/2024 Housing Stability Answer Date Recorded What is your housing situation today? I have brad cerrato 06/30/[address] you li ve. Do you have problems with any of the following? Pests such as bugs, ants, or mice 06/30/2024 Food Insecurity Answer Date Recorded Within the past 12 months, y ou worried that your food would run out before you got money to buy more: Often true 06/30/2024 Within the past 12 months,th e food you bought just didn't last and you didn't have enough money to get more: Often true 11/2023 Transportation Answer Date Recorded In the past 12 months, has l ack of transportation kept you from medical appts, meetings, work or from getting things needed for daily living? No 06/30/2024 Intimate Partner Violence Answer Date R ecorded Within the last year, have y ou been afraid of your partner or ex-partner? 2 11/25/2024 Within the last year, have y ou been humiliated or emotionally abused in other ways by your partner or ex-partner? 2 Within the last year, have y ou been kicked, hit, slapped, or otherwise physically hurt by your partner or ex-partner? 2 11/25/2024 Within the last year, have y ou been raped or forced to have any kind of sexual activity by your partner or ex-partner? 2 11/25/2024 Utilities Answer Date Recorded In the past 12 months, has t he [employer], gas, oil or water company threatened to shut off services in your home? No 06/30/2024 Depression Answer Date Recorded Patient Health Questionnaire-2 Score 5 02/19/2024 Internet Access Answer Date Recorded Internet Access Q1 Yes 06/30/2024 Internet Access Q2 Not on file 06/30/2024 Comments Unknown Sex and Gender Information Value Date Recorded Sex Assigned at Female 07/28/2022 10:20 AM EDT Legal Sex Female 10:20 AM EDT Gender Identity Female 07/28/2022 10:20 AM EDT Sexual Orientation Straight 07/28/2022 10 :20 AM EDT documented as of this encounter Last Filed Vital Signs Vital Sign Reading Time Taken Comments Blood Pressure 147/87 11/25/2024 10:43 AM EST Pulse 89 11/25/2024 10:43 AM EST Temperature 36.7 ??C (98 ??F) 11/25/2024 10:43 AM EST Respiratory Rate 16 11/25/2024 10:43 AM EST Oxygen Saturation 99% 11/25/2024 10:43 AM EST Inhaled Oxygen Concentration - - Weight 86.6 kg (191 lb) 11/25/2024 10:43 AM EST Height 160 cm (5' 3 ) 11/25/2024 10:43 AM EST Body Mass Index 33.83 11/25/2024 10:43 AM EST documented in this encounter Progress Notes * Ashlee Hills MD - 11/25/2024 10:30 AM EST SUBJECTIVE: Shreya Pulliam is a 44 y.o. year old female who presents for routine physical exam. Denies recent illness, ER visit, or hospitalization. Acute Concerns: Fatigue, labs today. Sleep and appetite are ok. 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 Lives alone. No recent med changes Interim Updates: Health care maintenance -due for mammo and colon, agreeable to referral - needs vision appointment, referral placed - has dentist in place Depression/Anxiety PHQ:9 13 ,CYDNEY 16 No SI , no hallucinations , no karis -hx of Bipolar ??? - saw before-already started care w therapist at [facility], and awaiting psychiatrist -pt refuse to take Cymbalta given causing sleepiness -hydroxyzine prn Fibromyalgia -symptoms and from exam appears from her fibromyalgia -PT referred today for back pain and advised acupuntire -start Gabapentin 100 mg HS- explained possible SE -lidoderm patch HTN 06/02/2024 microalb neg -continue amlodipine 5 mg daily Neutropenia 05/2024 WBC 3.9 , hb 11.6 ANC low 1.6 ,TSH wnl,chem wnl - repeat today Patient Active Problem List Diagnosis Fibromyalgia Carpal tunnel syndrome Lumbar spondylosis Migraine Neutropenia (CMS/HCC) Overweight MDD (major depressive disorder), recurrent episode, moderate (CMS/HCC) Back pain Vitamin D deficiency Anxiety in acute stress reaction Hypertension 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 (CMS/HCC) Past Surgical History: Procedure Laterality Date ESOPHAGOSCOPY / EGD 2010 TUBAL LIGATION Bilateral 11/2018 Family History Problem Relation Name Age of Onset Diabetes Father Asthma Sister Migraines Sister Diabetes Brother Mental illness Brother Social History Social History Narrative Not on file Review of Systems Constitutional: Positive for fatigue. HENT: Negative. Respiratory: Negative. Cardiovascular: Negative. Gastrointestinal: Negative. Musculoskeletal: Negative. Psychiatric/Behavioral: Positive for dysphoric mood. OBJECTIVE: Vitals: 11/25/24 1043 BP: (!) 147/87 BP Location: Left arm Patient Position: Sitting BP Cuff Size: Adult Pulse: 89 Resp: 16 Temp: 98 ??F (36.7 ??C) TempSrc: Temporal SpO2: 99% Weight: 191 lb (86.6 kg) Height: 5' 3 (1.6 m) Physical Exam Vitals and nursing note reviewed. Constitutional: Appearance: Normal appearance. HENT: Head: Normocephalic and atraumatic. Cardiovascular: Rate and Rhythm: Normal rate and regular rhythm. Pulses: Normal pulses. Heart sounds: Normal heart sounds. Pulmonary: Effort: Pulmonary effort is normal. Breath sounds: Normal breath sounds. Skin: General: Skin is warm and dry. Neurological: General: No focal deficit present. Mental Status: She is alert and oriented to person, place, and time. Psychiatric: Mood and Affect: Mood normal. Behavior: Behavior normal. ASSESSMENT/PLAN Problem List Items Addressed This Visit Fibromyalgia Relevant Medications lidocaine (Lidoderm) 5 % patch Hypertension Relevant Medications amLODIPine (Norvasc) 5 MG tablet 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 (CMS/HCC) Other Visit Diagnoses Class 1 obesity with serious comorbidity and body mass index (BMI) of 33.0 to 33.9 in adult, unspecified obesity type - Primary Relevant Orders TSH W/Reflex to FT4 CBC auto differential Comprehensive Metabolic Panel Hemoglobin A1c Dietary counseling Exercise counseling Blurry vision Relevant Orders Referral to [facility] Eye Care Screen for colon cancer Relevant Orders Referral to Gastroenterology Screening mammogram for breast cancer Relevant Orders BI Mammogram Screening Tomosynthesis Bilateral Follow Up: per PCP recall or sooner prn No Known Allergies Current Outpatient Medications: amLODIPine (Norvasc) 5 MG tablet, Take 1 tablet (5 mg) by mouth Once per day., Disp: 90 tablet, Rfl: 3 cetirizine (ZyrTEC) 10 MG tablet, Take 1 tablet (10 mg) by mouth Once per day., Disp: 90 tablet, Rfl: 3 cholecalciferol (Vitamin D-3) 25 MCG (1000 UT) tablet, Take 1 tablet (25 mcg) by mouth Once per day., Disp: 90 tablet, Rfl: 3 gabapentin (Neurontin) 100 MG capsule, Take 1 capsule (100 mg) by mouth at bedtime., Disp: 90 capsule, Rfl: 3 hydrOXYzine pamoate (Vistaril) 25 MG capsule, Take 1 capsule (25 mg) by mouth every 8 (eight) hoursif needed for anxiety., Disp: 90 capsule, Rfl: 3 lidocaine (Lidoderm) 5 % patch, Apply 1 patch topically Once per day. Remove & discard patch within 12 hours or as directed by ., Disp: 30 patch, Rfl: 2 [place] Translation: Provided by [facility] staff member KAREL Mike documented in this encounter Plan of Treatment Upcoming Encounters Date Type Department Care Team (Late st Contact Info) Description 01/18/2025 9:15 AM EDT Office Visit [facility] MEDICINE [address] [place] [address] Sabi Briceño MD [address] [place] [address] 04/17/2025 2:00 PM EDT Office Visit [facility] OPTOMETRY [address] [place], [place] [phone] Kayy Mejia, OD [address] [place] [address] Scheduled Orders Name Type Priority Associated Diagnoses Orde r Schedule TSH W/Reflex to FT4 Lab Routine Class 1 obesity with serious comorbidity and body mass index (BMI) of 33.0 to 33.9 in adult, unspecified obesity type Expected: 11/25/2024 (Approximate), Expires: 11/25/2025 CBC auto differential Lab Routine Class 1 obesity with serious comorbidity and body mass index (BMI) of 33.0 to 33.9 in adult, unspecified obesity type Expected: 11/25/2024 (Approximate), Expires: 11/25/2025 Comprehensive Metabolic Panel Lab Routine Class 1 obesity with serious comorbidity and body mass index (BMI) of 33.0 to 33.9 in adult, unspecified obesity type Expected: 11/25/2024 (Approximate), Expires: 11/25/2025 Hemoglobin A1c Lab Routine Class 1 obesity with serious comorbidity and body mass index (BMI) of 33.0 to 33.9 in adult, unspecified obesity type Expected: 11/25/2024 (Approximate), Expires: 11/25/2025 BI Mammogram Screening Tomosynthesis Bilateral Imaging Routine Screening mammogram for breast cancer Expected: 11/25/2024, Expires: 01/23/2026 Scheduled Referrals Name Type Priority Associated Diagnoses Order Schedule Referral to [facility] Eye Care Outpatient Referral Routine Blurry vision Expected: 11/25/2024 (Approximate), Expires: 11/25/2025 Referral to Gastroenterology Outpatient Referral Routine Screen for colon cancer Expected: 11/25/2024 (Approximate), Expires: 11/25/2025 documented as of this encounter Visit Diagnoses Diagnosis Class 1 obesity with serious comorbidity and body mass index (BMI) of 33.0 to 33.9 in adult, unspecified obesity type- Primary 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 (CMS/HCC) Bipolar I disorder, most recent episode (or current) mixed, severe, specified as with psychotic behavior Dietary counseling Dietary surveillance and counseling Exercise counseling Blurry vision Other specified visual disturbances Screen for colon cancer Special screening for malignant neoplasms, colon Screening mammogram for breast cancer Fibromyalgia Unspecified myalgia and myositis Primary hypertension Unspecified essential hypertension documented in this encounter Additional Health Concerns Assessment Noted Time PHQ-9 Depression Total Score: 13 02/18/ 024 1:31 PM EDT documented as of this encounter Care Teams Button Station Worker Relationship Specialty Start Date End Date Sabi Briceño MD [address] [place] [id number] PCP - General Internal Medicine 07/07/23 documented as of this encounter
--- OUTSIDE RECORDS SUMMARY | 2024-11-25 12:58 | XMS_ITS | Encounter Summary ---
Author Organization [employer] Address [address] [facility] [place] [address] Care Team Providers Care Bilingual Legal Assistant Name Role Phone Sabi Briceño MD Primary Care Pro vider Encounter Details Date Type Department Care Team ([facility] st Contact Info) Description 11/25/2024 Telephone [facility] MEDICINE [address] [place], [place] [phone] Ashlee Hills MD [address] [place], [place] [phone] Social History Tobacco Use Types Packs/Day Years Used Date Smoking Tobacco: Never Passive Smoke Exposure: Never Smokeless Tobacco: Never Alcohol Use Standard Drinks/Week Comments Not Currently [...] the past 12 months, has t he electric, gas, oil or water company threatened to [...] AM EDT documented as of this encounter Miscellaneous Notes * Telephone Encounter - Eve Castillo - 11/25/2024 10:58 AM EST Excuse for work documented in this encounter Plan of Treatment Upcoming Encounters Date Type Department Care Team (Late st Contact Info) Description 01/18/2025 9:15 AM EDT Office Visit [facility] MEDICINE [address] [place], [place] [phone] Sabi Briceño MD [address] [place], [place] [phone] 04/17/2025 2:00 PM EDT Office Visit [facility] OPTOMETRY [address] [place], [place] [phone] Roberto, Kayy, OD [address] [place], [place] [phone] documented as of this encounter Visit Diagnoses Not on filedocumented in this encounter Additional Health Concerns Assessment Noted Time PHQ-9 Depression Total Score: 13 024 1:31 PM EDT documented as of this encounter Care Teams Bilingual Legal Assistant Relationship Specialty Start Date End Date Sabi Briceño MD [address] [place], [place] [phone] PCP - General Internal Medicine 07/07/23 documented as of this encounter
--- OUTSIDE RECORDS SUMMARY | 2024-11-25 12:58 | XMS_ITS | Encounter Summary ---
Author Organization [employer] Address [address] [place] [address] [address], [place] [address] Care Team Providers Care Supervisor [employer] Name Role Phone Sabi Briceño MD Primary Care Pro vider Reason for Visit * Reason Comments Pre-visit Planning (Unable to reach for PVP screening and or LVM) Encounter Details Date Type Department Care Team (Late st Contact Info) Description 11/11/2024 Patient Outreach [facility] [address] [place] [address] Sabi Briceño MD [address] [place] [address] Pre-visit Planning ((Unable to reach for PVP screening and or LVM)) Social History Tobacco Use Types Packs/Day Years Used Date Smoking Tobacco: Never Passive Smoke Exposure: Never Smokeless Tobacco: Never Alcohol Use Standard Drinks/Week Comments Not Currently 0 (1 standard drink = 0.6 oz pur e alcohol) Depression Answer Date Recorded Patient Health Questionnaire-9 [...] things needed for daily living? No 06/30/2024 Utilities Answer Date Recorded In the past [...] AM EDT documented as of this encounter Progress Notes * Edwina Land - 11/11/2024 9:41 AM EST CC Edwina placed outbound call to patient to complete pre-visit planning. No answer at this time. Patient name and were not confirmed. CC unable to leave a voice message. documented in this encounter Plan of Treatment Upcoming Encounters Date Type Department Care Team (Late st Contact Info) Description 01/18/2025 9:15 AM EDT Office Visit [facility] MED[facility] [address] [place] [address] Sabi Briceño MD [address] [place] [address] 04/17/2025 2:00 PM EDT Office Visit [facility] OPTOMETRY [address] [place] [address] Kayy Mejia, OD [address] [place] [address] documented as of this encounter Visit Diagnoses Not on filedocumented in this encounter Additional Health Concerns Assessment Noted Time PHQ-9 Depression Total Score: 13 024 1:31 PM EDT documented as of this encounter Care Teams Supervisor [employer] Relationship Specialty Start Date End Date Sabi Briceño MD [address] [place] [id number] PCP - General Internal Medicine 07/07/23 documented as of this encounter
--- OUTSIDE RECORDS SUMMARY | 2024-11-25 12:58 | XMS_ITS | Encounter Summary ---
Author Organization [employer] Address [address] [facility] [address] [place] [address] Care Team Providers Care Butcher Supervisor Name Role Phone Sabi Briceño MD Primary Care Pro vider Encounter Details Date Type Department Care Team (Latest Contact Info) Description 11/25/2024 Travel Social History Tobacco Use Types Packs/Day Years [...] is your housing situation today? I have braddeondre cerrato 06/30/[address] you [...] AM EDT documented as of this encounter Plan of Treatment Upcoming Encounters Date Type Department Care Team (Late st Contact Info) Description 01/18/2025 9:15 AM EDT Office Visit [facility] MEDICINE [address] [place] [address] Sabi Briceño MD [address] [place] [address] 04/17/2025 2:00 PM EDT Office Visit [facility] OPTOMETRY [address] [place] [address] Kayy Mejia, OD [address] [place] [address] documented as of this encounter Visit Diagnoses Not on filedocumented in this encounter Additional Health Concerns Assessment Noted Time PHQ-9 Depression Total Score: 13 024 1:31 PM EDT documented as of this encounter Care Teams Butcher Supervisor Relationship Specialty Start Date End Date Sabi Briceño MD [address] [place] [id number] PCP - General Internal Medicine 07/07/23 documented as of this encounter
--- OUTSIDE RECORDS SUMMARY | 2024-11-25 12:58 | XMS_ITS | Clinical Summary ---
Author Organization [employer] Address 75 [facility] 7t [place] [address] Care Team Providers Care Artist Consultant Name Role Phone Sabi Briceño MD Primary Care Pro vider Allergies No known active allergies Medications * This document contains information received from the source organization and may not represent a complete record from that organization. lidocaine (Lidoderm) 5 % patchIndication s:Fibromyalgia Apply 1 patch topically Once per day. Remove & discard patch within 12 hours or as directed by MD. 30 patch 2 11/25/19 25 Active hydrOXYzine pamoate (Vistaril) 25 MG capsule Take 1 capsule (25 mg) by mouth every 8 (eight) hours if needed for anxiety. 90 capsule 3 11/25/19 25 025 Active gabapentin (Neurontin) 100 MG capsule Take 1 capsule (100 mg) by mouth at bedtime. 90 capsule 3 11/25/19 25 026 Active cholecalciferol (Vitamin D-3) 25 MCG (1000 UT) tablet Take 1 tablet (25 mcg) by mouth Once per day. 90 tablet 3 11/25/19 25 026 Active cetirizine (ZyrTEC) 10 MG tablet Take 1 tablet (10 mg) by mouth Once per day. 90 tablet 3 11/25/19 25 026 Active amLODIPine (Norvasc) 5 MG tabletIndicatio ns:Primary hypertension Take 1 tablet (5 mg) by mouth Once per day. 90 tablet 3 11/25/19 25 026 Active cetirizine (ZyrTEC) 10 MG tablet Take 1 tablet (10 mg) by mouth Once per day. 90 tablet 02/19/20 24 025 Discontinued(Re order (will not trigger notification to Pharmacy)) amLODIPine (Norvasc) 5 MG tabletIndicatio ns:Primary hypertension Take 1 tablet (5 mg) by mouth Once per day. 30 tablet 2 07/13/20 24 025 Discontinued(Re order (will not trigger notification to Pharmacy)) lidocaine (Lidoderm) 5 % patchIndication s:Fibromyalgia Apply 1 patch topically Once per day. Remove & discard patch within 12 hours or as directed by MD. 30 patch 2 07/13/20 24 025 Discontinued(Re order (will not trigger notification to Pharmacy)) hydrOXYzine pamoate (Vistaril) 25 MG capsule Take 1 capsule (25 mg) by mouth every 8 (eight) hours if needed for anxiety for up to 10 days. 30 capsule 3 07/13/20 24 025 Discontinued(Re order (will not trigger notification to Pharmacy)) cholecalciferol (Vitamin D-3) 25 MCG (1000 UT) tablet Take 1 tablet (25 mcg) by mouth Once per day. 90 tablet 09/16/20 24 025 Discontinued(Re order (will not trigger notification to Pharmacy)) gabapentin (Neurontin) 100 MG capsule Take 1 capsule (100 mg) by mouth at bedtime. 90 capsule 09/16/20 24 025 Discontinued(Re order (will not trigger notification to Pharmacy)) ibuprofen 600 MG tabletIndicatio ns:Lumbar spondylosis Take 1 tablet (600 mg) by mouth every 8 (eight) hours if needed for moderate pain or fever. 30 tablet 10/10/19 025 cyclobenzaprine (Flexeril) 10 MG tabletIndicatio ns:Lumbar spondylosis One tab po at bedtime prn pain of muscles, do not drive with medicaion 10 tablet 10/10/19 25 025 Discontinued(Th erapy completed) Active Problems Problem Noted Date Diagnosed Date Severe mixed bipolar I disorder with psychotic f eatures 11/25/2024 Anxiety in acute stress reaction 02/20/2024 Hypertension 02/20/2024 Fibromyalgia 10/21/2022 Carpal tunnel syndrome 10/21/2022 Neutropenia 10/21/2022 Back pain 10/21/2022 Vitamin D deficiency 10/21/2022 Overweight 07/27/2018 MDD (major depressive disord er), recurrent episode, moderate 09/14/2014 Migraine 09/07/2012 Lumbar spondylosis 05/28/2012 Overview (10/10/2024): - Prescribed ibuprofen 600 MG tablet 10/10/24 - Prescribed cyclobenzaprine (Flexeril) 10 MG tablet 10/10/24 - Ordered XR Lumbar Spine 2-3 Views 10/10/24 - Referred to Physical Therapy 10/10/24 Assessment & Plan (10/10/2024 12:51 PM EST): - Prescribed ibuprofen 600 MG tablet 10/10/24 - Prescribed cyclobenzaprine (Flexeril) 10 MG tablet 10/10/24 - Ordered XR Lumbar Spine 2-3 Views 10/10/24 - Referred to Physical Therapy 10/10/24 Encounters Date Type Department Care Team Description 11/25/2024 10:30 AM EST Office Visit [address] [address] Ashlee Hills MD Class 1 obesity with serious comorbidity and body mass index (BMI) of 33.0 to 33.9 in adult, unspecified obesity type (Primary Dx); 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 (CMS/HCC); Dietary counseling; Exercise counseling; Blurry vision; Screen for colon cancer; Screening mammogram for breast cancer; Fibromyalgia; Primary hypertension 11/25/[address] [address] Ashlee Hills MD 11/25/2024 Travel 11/23/[address] [phone] Kristy Mcgowan, ANP Results 11/11/2024 Patient Outreach [address] [phone] Sabi Briceño MD Pre-visit Planning ((Unable to reach for PVP screening and or LVM)) 10/10/2024 11:15 AM EST Office Visit [address] [address] Jaqueline Vidales MD Lumbar spondylosis (Primary Dx) 10/10/2024 Telephone [facility] [address] [place] [address] Sabi Briceño MD 10/10/2024 Travel 10/06/2024 Telephone [facility] [address] [place] [address] Sabi Briceño MD Nurse Triage 09/16/2024 Refill [facility] [address] [place] [address] Sabi Briceño MD from Last 3 Months Immunizations Name Administration Dates Next Due DTaP 12/08/2017,05/17/2014,11/16/2012 Hep B, Adolescent or Pediatric 05/30/2011,2010,07/26/2009 Influenza injectable quadriv alent IIV4 with preservative 11/17/2019 Influenza injectable quadriv alent preservative free 08/07/2017 Influenza, IIV3, injectable 05/30/2011 Influenza, Split (incl. jr fied surface antigen) 07/06/2012 TD (adult), 2 Lf tetanus tox oid, preservative free, adsorbed 11/17/2019 Tdap 07/26/2009 Family History Medical History Relation Name Comments Diabetes Brother Mental illness Brother Diabetes Father Asthma Sister Migraines Sister Relation Name Status Comments Brother Father Sister Social History Tobacco Use Types Packs/Day Years [...] Orientation Straight 07/28/2022 10 :20 AM EDT Last Filed Vital Signs Vital Sign Reading [...] Mass Index 33.83 11/25/2024 10:43 AM EST Plan of Treatment Upcoming Encounters Date Type Department Care Team (Late st Contact Info) Description 01/18/2025 9:15 AM EDT Office Visit [facility] [address] [place] [address] Sabi Briceño MD [address] [place] [address] 04/17/2025 2:00 PM EDT Office Visit [facility] [address] [place] [address] Roberto, Kayy, OD [address] [place] [address] Health Maintenance Due Date Last Done Comments CT Colonography 1979 Colonoscopy 1979 Colorectal Cancer Screening 1979 FIT DNA/Cologuard 1979 FIT 1979 FOBT 1979 Sigmoidoscopy 1979 Hepatitis B Vaccines (1 of 3 - 19+ 3-dose series) 1998 05/30/2011, 10/21/2010, 07/26/2009 Mammogram 07/01/2023 07/01/2021 COVID-19 Vaccine ( season) 2024 01/10/2022, 01/10/2021 Influenza Vaccine (#1) 2024 , 08/07/2017, 07/06/2012, Additional history exists Pap Smear 06/11/2024 06/11/2021 Depression Monitoring (PHQ-9) 08/21/2024 02/19/2024, 02/19/2024 Depression Screening 02/18/2025 02/19/2024, 02/19/20 SDOH Screening 06/30/2025 06/30/2024 Alcohol/Substance Use Screening 11/25/2025 11/25/2024 Family Planning (PISQ) 11/25/2025 11/25/2024 Tobacco Screening 11/25/2025 11/25/2024 Cervical Cancer Screening 06/11/2026 HPV/Cotest 06/11/2026 06/11/2021, 08/07/2017 Lipid Panel 11/07/2027 11/07/2022, 05/15/2021 Zoster Vaccines (1 of 2) 2029 DTaP/Tdap/Td Vaccines (6 - Td or Tdap) 11/17/2029 11/17/2019, 12/08/2017, 05/17/2014, Additional history exists RSV Patients and Patients Aged 60 years or older (1 - 1-dose 75+ series) 2054 HIV Screening Completed 11/07/2022, 12/12/2019 Hepatitis C Screening Completed 11/07/2022, 020 HIB Vaccines Aged Out No longer eligi ble based on patient's age to complete this topic HPV Vaccines Aged Out No longer eligi ble based on patient's age to complete this topic Hepatitis A Vaccines Aged Out No long er eligible based on patient's age to complete this topic IPV Vaccines Aged Out No longer eligi ble based on patient's age to complete this topic Meningococcal Vaccine Aged Out No toni funmi eligible based on patient's age to complete this topic Pneumococcal Vaccine: Pediatrics (0 to 5 Years) and At-Risk Patients (6 to 49) Years) Aged Out No longer eligible based on patient's age to complete this topic RSV under 20 months Aged Out No longe r eligible based on patient's age to complete this topic Rotavirus Vaccines Aged Out No longer eligible based on patient's age to complete this topic Procedures Procedure Name Priority Date/Time Associated Diagnosis Comments HEPATITIS C AB W/REFL TO HCV RNA, QN, PCR Routine 11/07/2022 11:44 AM EST Encounter for well adult exam with abnormal findings HIV 1/2 ANTIGEN/ANTIBODY, FOURTH GENERATION W/RFL Routine 11/07/2022 11:44 AM EST Encounter for well adult exam with abnormal findings LIPID PANEL, STANDARD Routine 11/07/2022 11:44 AM EST Encounter for well adult exam with abnormal findings MAMMOGRAM GENERIC Routine 07/01/2021 10: 45 AM EDT HPV MRNA E6/E7 Routine 06/11/2021 12:00 AM EDT THINPREP PAP Routine 06/11/2021 12:00 AM EDT from Last 3 Months or Most Recently Relevant to Health Maintenance Results * Hepatitis C Antibody with Reflex to HCV, RNA, Quantitative, Real-Time PCR (11/07/2022 11:44 AM EST) Hepatitis C Antibody NON-REACT RUPINDER NON-REACT RUPINDER [facility] Index 0.04 <1.00 [facility] Comment: HCV antibody was non-reactive. There is no laboratory evidence of HCV infection. In most cases, no further action is required. However, if recent HCV exposure is suspected, a test for HCV RNA (test code 91669) is suggested. For additional information please refer to http://education.SAY Media/faq/EXK07q6 (This link is being provided for informational/ educational purposes only.) Blood Venous blood specimen / Unknown 11/07/2022 11:44 AM EST 11/07/2022 11:45 AM EST Narrative [facility] - 11/08/2022 7:04 PM EST FASTING:YES FASTING: YES us Dorothea Clifford TRAILER PARK MANAGER LAB BLOOD ORDERABLES Final Result [facility] [address], [place] [address] [facility] 200 [facility], (Nl2) [place] [address] * HIV-1/2 Antigen and Antibodies, Fourth Generation, with Reflexes (11/07/2022 11:44 AM EST) Pathologist [facility] HIV Antigen/Antibody, 4th Generation NON-REAC TIVE NON-REAC TIVE [facility] [place] opinions.h Comment: HIV-1 antigen and HIV-1/HIV-2 antibodies were not detected. There is no laboratory evidence of HIV infection. PLEASE NOTE: This information has been disclosed to you from records whose confidentiality may be protected by state law. ??If your state requires such protection, then the state law prohibits you from making any further disclosure of the information without the specific written consent of the person to whom it pertains, or as otherwise permitted by law. A general authorization for the release of medical or other information is NOT sufficient for this purpose. ?? For additional information please refer to http://education.SAY Media/faq/EWG222 (This link is being provided for informational/ educational purposes only.) The performance of this assay has not been clinically validated in patients less than 2 years old. Blood Venous blood specimen / Unknown 11/07/2022 11:44 AM EST 11/07/2022 11:45 AM EST Narrative [facility] - 11/08/2022 7:04 PM EST FASTING:YES FASTING: YES Dorothea Clifford [facility] LAB BLOOD ORDERABLES Final Result [facility] [address], [place] [address] [facility] [place] [employer] 200 [facility], (Nl2) [place] [address] * (ABNORMAL) Lipid Panel, Standard (11/07/2022 11:44 AM EST) Pathologist [facility] Cholesterol, Total 214(H) <200 mg/dL [facility] [place] opinions[facility] HDL Cholesterol 73 > OR = 50 mg/dL [facility] [place] [employer] Triglycerides 119 <150 mg/dL [facility] [place] [employer] LDL Cholesterol 118(H) mg/dL (calc) [facility] [place] opinions[facility]h Comment: Reference range: <100 Desirable range <100 mg/dL for primary prevention; ?? <70 mg/dL for patients with CHD or diabetic patients with > or = 2 CHD risk factors. LDL-C is now calculated using the Balwinder calculation, which is a validated novel method providing better accuracy than the Friedewald equation in the estimation of LDL-C. Jerry MCCRACKEN et al. KIYA. 2013;310(19): 9192-7693 (http://education.Coupons.com/faq/POL618) Chol/HDLC Ratio 2.9 <5.0 (calc) [facility] Non-HDL Cholesterol 141(H) <130 mg/dL (calc) [facility] Comment: For patients with diabetes plus 1 major ASCVD risk factor, treating to a non-HDL-C goal of <100 mg/dL (LDL-C of <70 mg/dL) is considered a therapeutic option. Blood Venous blood specimen / Unknown 11/07/2022 11:44 AM EST 11/07/2022 11:45 AM EST Narrative [facility] - 11/08/2022 7:04 PM EST FASTING:YES FASTING: YES Dorothea Clifford TRAILER PARK MANAGER LAB BLOOD ORDERABLES Final Result [address], [place] [address] [facility] [place] opinions[facility] 200 [facility], (Nl[address]) [place] [address] * Mammography Report 1 (07/01/2021 10:45 AM EDT) Anatomical Region Laterality Modality Breast Bilateral Mammography 07/01/2021 10:4 5 AM EDT Narrative 07/02/2021 10:32 AM EDT Refer to the Notes tab for result details [facility] Procedure: Mammography Report 1 Procedure Note Provider, MD Taisha - 12/21/2022 Refer to the Notes tab for result details [facility] Procedure: Mammography Report 1 Emi Monteiro DEDICATED REGIONAL DRIVER IMG BI PROCEDURES Final Result * THINPREP PAP (06/11/2021 12:00 AM EDT) Pathologist [facility] Clinical Information: None given [facility] COMMENT SEE COMMENT [facility] Comment: EXPLANATORY NOTE: ? The Pap is a screening test for cervical cancer. It is ?? not a diagnostic test and is subject to false negative ?? and false positive results. It is most reliable when a ?? satisfactory sample, regularly obtained, is submitted ?? with relevant clinical findings and history, and when ?? the Pap result is evaluated along with historic and ?? current clinical information. ?? Hand Trimmer : SEE COMMENT [facility] Comment: RXB, CT(ASCP) CT screening location: [address] ??[id number] Interpretation/R esult: Negative for intraepithelial lesion or malignancy. [facility] LMP: NONE GIVEN [facility] Prev. BX: NONE GIVEN [facility] Prev. PAP: NONE GIVEN [facility] SOURCE: None given [facility] Statement Of Adequacy: SEE COMMENT [facility] Comment: Satisfactory for evaluation. Endocervical/transformation zone component present. Age and/or menstrual status not provided 06/11/2021 Emi Monteiro DEDICATED REGIONAL DRIVER LAB PATHOLOGY ORDERABLES Final Result [facility] [address] * HPV mRNA E6/E7 (06/11/2021 12:00 AM EDT) HPV nRNA E6/E7 Not Detected Not Detected [facility] Comment: Methodology: Stamping Bench Die Maker-Mediated Amplification This assay detects E6/E7 viral messenger RNA (mRNA) from 14 high-risk HPV types (16,18,31,33,35,39,45,51,52,56,58,59,66,68). ? The analytical performance characteristics of this assay have been determined by [facility]. The modifications have not been cleared or approved by the FDA. This assay has been validated pursuant to the CLIA regulations and is used for clinical purposes. ?? For additional information, please refer to http://education.SAY Media/faq/IEM472w4 (This link if provided for information/ educational purposes only.) 06/11/2021 us Emi Monteiro NP LAB BLOOD ORDERABLES Final Resu lt [facility] [address] from Last 3 Months or Most Recently Relevant to Health Maintenance Insurance [employer] Care Teams Artist Consultant Relationship Specialty Start Date End Date Sabi Briceño MD [address] [place] [id number] PCP - General Internal Medicine 07/07/23
--- OUTSIDE RECORDS SUMMARY | 2024-11-25 12:58 | XMS_ITS | Encounter Summary ---
Author Organization [employer] Address 75 [facility] 7t [place] [address] Care Team Providers Care Rod Puller Name Role Phone Sabi Briceño MD Primary Care Pro vider Reason for Visit * Reason Onset Date Comments Results 11/23/2024 Encounter Details Date Type Department Care Team ([facility] st Contact Info) Description 11/23/2024 Telephone [facility] [address] [place] [address] Kristy Mcgowan, ANP [address] [place] [address] Results Social History Tobacco Use Types Packs/Day Years [...] encounter Miscellaneous Notes * Telephone Encounter - Emelia Landry RN - 11/23/2024 4:16 PM EST Telephone call to pt using [employer] official court interpreter Adelia #[id number]. Advised pt that labs showed low vitamin D levels, otherwise labs were normal. Reviewed with pt importance of increasing dietary supplements or taking OTC medication for vitamin D (400ius). Pt reports already taking Vit D med prescribed last year. Advised her to continue this. Pt verbalized understanding, no further questions. * Telephone Encounter - Emelia Landry RN - 11/23/2024 4:03 PM EST ----- Message from Kristy Mcgowan sent at 11/23/2024 3:01 PM EST ----- Please let this patient know that her labs were normal with the exception of her vitamin D which was a tiny bit low. Recommend vitamin D rich foods. Could take an [id number] vitamin D supplement with 400 IU daily. This is the amount typically and most multivitamins as well. Apologies for the delay in letting her know the results. documented in this encounter Plan of Treatment Upcoming Encounters Date Type Department Care Team (Late st Contact Info) Description 01/18/2025 9:15 AM EDT Office Visit [facility] [address] [place] [address] Sabi Briceño MD [address] [place] [address] 04/17/2025 2:00 PM EDT Office Visit [facility] [address] [place], [place] [phone] Roberto, Kayy, OD [address] [place], [place] [phone] documented as of this encounter Visit Diagnoses Not on filedocumented in this encounter Additional Health Concerns Assessment Noted Time PHQ-9 Depression Total Score: 13 024 1:31 PM EDT documented as of this encounter Care Teams Rod Puller Relationship Specialty Start Date End Date Sabi Briceño MD [address] [place], [place] [phone] PCP - General Internal Medicine 07/07/23 documented as of this encounter
[2024-11-25 13:37] LABS: MANUAL DIFF FLAG NO
[2024-11-25 13:51] LABS: Basophils Percent Auto 1.1 % (0-2); Eosinophils Absolute Auto 0.1 X10*3/uL (0.0-0.4); Hematocrit 37.4 % (37.0-47.0); Hemoglobin 11.8 g/dl (12.0-16.0); Imm Gran Abs Auto 0.01 X10*3/uL (0.00-0.03); Imm Gran Pct Auto 0.3 % (0.0-0.4); Lymphocytes Absolute Auto 1.6 X10*3/uL (1.2-4.9); Lymphocytes Percent Auto 44.7 % (20-40); Mean Corpuscular HGB Conc 31.6 g/dl (31.0-35.0); Mean Corpuscular Hemoglobin 26.7 pg (27.0-33.0); Mean Corpuscular Volume 84.6 fL (80.0-98.0); Mean Platelet Volume 11.2 fL (9.4-12.3); Monocytes Absolute Auto 0.4 X10*3/uL (0.1-1.2); Monocytes Percent Auto 9.8 % (2-11); Neutrophils Absolute Auto 1.5 x10*3/uL (2.0-8.3); Neutrophils Percent Auto 41.1 % (45-73); Platelet Count 258 X10*3/uL (160-400); Red Blood Count 4.42 X10*6/uL (4.20-5.50); Red Cell Distribution Width 14.8 % (11.0-16.0); White Blood Count 3.7 X10*3/uL (4.8-10.8)
[2024-11-25 14:18] LABS: Estimated Average Glucose 114 mg/dL; Hemoglobin A1C 118.8604 umol/L; Hemoglobin A1c % 5.6 % (<6.0); Total Hemoglobin (HGBA1C) 3145.2771 umol/L
[2024-11-25 14:31] LABS: Alanine Aminotransferase 12 U/L (0-31); Alkaline Phosphatase 61 U/L (39-117); Anion Gap 10 (12-20); Aspartate Amino Transferase 22 U/L (5-31); Bilirubin Total 0.3 mg/dL (0.0-1.0); Blood Urea Nitrogen 12 mg/dL (9-16); Calcium 8.9 mg/dL (8.4-10.2); Carbon Dioxide 26 mmol/L (22-29); Chloride 107 mmol/L (96-108); Estimated Glomerular Filt Rate > 60; Glucose Random 92 mg/dL (60-115); Sodium 139 mmol/L (135-145); TSH reflex Free T4 1.75 uIU/mL (0.32-4.0); Total Protein 8.2 g/dL (6.5-8.0)
== END 2024-11-25 11:06 | disposition home or self-care (01) ==
LOC: HO.HHCL 11:05
PROVIDERS: Visit Provider General Practice
DX: E66.811 Obesity, class 1 (principal); Z68.33 Body mass index [BMI] 33.0-33.9, adult
CPT/HCPCS: 36415; 80053; 83036; 84443; 85025

== ENCOUNTER 2024-12-12 15:37 | Outpatient (REF) | payer MEDICAID, SELFPAY ==
--- OUTSIDE RECORDS SUMMARY | 2024-12-12 18:04 | XMS_ITS | Encounter Summary ---
Author Organization [employer] Address [address] [facility] [address] 7[address] [place] [address] Care Team Providers Care Chief Scientist Name Role Phone Sbai Briceño MD Primary Care Pro vider Encounter Details Date Type Department Care Team ([facility] st Contact Info) Description 11/25/2024 Telephone [facility] [address] [place], [place] [phone] Ashlee Hills MD 230 [place], [place] [phone] Social History Tobacco Use Types Packs/Day Years [...] Description 01/18/2025 9:15 AM EDT Office Visit [facility] [address] [place], [place] [phone] Sabi Briceño MD [address] [place], [place] [phone] 04/17/2025 2:00 PM EDT Office Visit [facility] [address] [place], [place] [phone] Roberto, Kayy, OD [address] [place], [place] [phone] documented as of this encounter Visit Diagnoses Not on filedocumented in this encounter Additional Health Concerns Assessment Noted Time PHQ-9 Depression Total Score: 13 024 1:31 PM EDT documented as of this encounter Care Teams Chief Scientist Relationship Specialty Start Date End Date Sabi Briceño MD [address] [place], [place] [phone] PCP - General Internal Medicine 07/07/23 documented as of this encounter
--- OUTSIDE RECORDS SUMMARY | 2024-12-12 18:04 | XMS_ITS | Encounter Summary ---
Author Organization [employer] Address 75 [facility] 7t [place] [address] Care Team Providers Care Roller Stitcher Name Role Phone Sabi Briceño MD Primary [...] Description 01/18/2025 9:15 AM EDT Office Visit [facility] [address] [place] [address] Sabi Briceño MD [address] [place] [address] 04/17/2025 2:00 PM EDT Office Visit [facility] [address] [place] [address] Kayy Mejia, OD [address] [place] [address] documented as of this encounter Visit Diagnoses Not on filedocumented in this encounter Additional Health Concerns Assessment Noted Time PHQ-9 Depression Total Score: 13 024 1:31 PM EDT documented as of this encounter Care Teams Roller Stitcher Relationship Specialty Start Date End Date Sabi Briceño MD [address] [place] [address] PCP - General Internal Medicine 07/07/23 documented as of this encounter
--- OUTSIDE RECORDS SUMMARY | 2024-12-12 18:04 | XMS_ITS | Encounter Summary ---
Author Organization [employer] Address 75 [facility] 7t [place] [address] Care Team Providers Care Tray Drier Name Role Phone Sabi Briceño MD Primary Care Pro vider Reason for Visit * Reason Onset Date Comments Results 11/23/2024 Encounter Details Date Type Department Care Team ([facility] st Contact Info) Description 11/23/2024 Telephone [facility] [address] [place] [address] Kristy Mcgowan, ANP [address] [place] [address] Results Social History Tobacco Use Types Packs/Day [...] Miscellaneous Notes * Telephone Encounter - Emelia Ayoub RN - 11/23/2024 4:16 PM EST Telephone call to pt using [employer] claims associate Adelia #[id number]. Advised pt that labs showed low vitamin D levels, otherwise labs were normal. Reviewed with pt importance of increasing dietary supplements or taking OTC medication for vitamin D (400ius). Pt reports already taking Vit D med prescribed last year. Advised her to continue this. Pt verbalized understanding, no further questions. * Telephone Encounter - Emelia Ayoub RN - 11/23/2024 4:03 PM EST ----- Message from Kristy Mcgowan sent at 11/23/2024 3:01 PM EST ----- Please let this patient know that her labs were normal with the exception of her vitamin D which was a tiny bit low. Recommend vitamin D rich foods. Could take an bhzi-[id number]-xvglmwt vitamin D supplement with 400 IU daily. This is the amount typically and most multivitamins as well. Apologies for the delay in letting her know the results. documented in this encounter Plan of Treatment Upcoming Encounters Date Type Department Care Team (Late st Contact Info) Description 01/18/2025 9:15 AM EDT Office Visit [facility] [address] [place] [address] Sabi Briceño MD [address] [place] [address] 04/17/2025 2:00 PM EDT Office Visit [facility] [address] [place] [address] Roberto, Kayy, OD [address] [place] [address] documented as of this encounter Visit Diagnoses Not on filedocumented in this encounter Additional Health Concerns Assessment Noted Time PHQ-9 Depression Total Score: 13 024 1:31 PM EDT documented as of this encounter Care Teams Tray Drier Relationship Specialty Start Date End Date Sabi Briceoñ MD [address] [place] [phone] PCP - General Internal Medicine 07/07/23 documented as of this encounter
--- OUTSIDE RECORDS SUMMARY | 2024-12-12 18:04 | XMS_ITS | Encounter Summary ---
Author Organization [employer] Address [address] [place] [address] Care Team Providers Care Spine Surgeon Name Role Phone Sabi Briceño MD Primary Care Pro vider Reason for Referral * Imaging (Routine) - Authorized Specialty Diagnoses / Procedures Referred By Contjose eduardo t Referred To Contact Radiology Diagnoses Screening mammogram for breast cancer Procedures BI Mammogram Screening Tomosynthesis Bilateral Ashlee Hills MD [address] [place] [address] Phone: tel: fax: [facility] [address] [place] [address] Phone: tel: fax: Referral ID Status Reason Start Date Expiration Date V isits Requested Visits Authorized [id number] Authorized 11/25/2024 11/25/2025 1 1 * Consultation (Routine) - Authorized Specialty Diagnoses / Procedures Referred By Contac t Referred To Contact Gastroenterology Diagnoses Screen for colon cancer Ashlee Hills MD [address] [place] [address] Phone: tel: fax: [facility] [address] [place], [place] Phone: tel: fax: Referral ID Status Reason Start Date Expiration Date Visits Requested Visits Authorized [id number] Authorized Specialty Services Required 11/25/2024 11/25/2025 6 6 * Consultation (Routine) - Closed Specialty Diagnoses / Procedures Referred By Jennifer biswas Referred To Contact Optometry Diagnoses Blurry vision Ashlee Hills MD [address] [place] [address] Phone: tel: fax: [facility] [address] [place] [address] Phone: tel: fax: Referral ID Status Reason Start Date Expiration Date V isits Requested Visits Authorized [id number] Closed Consult and Treat 11/25/2024 11/25/2025 1 1 Reason for Visit * Reason Comments Annual Exam Encounter Details Date Type Department Care Team (Late st Contact Info) Description 11/25/2024 10:30 AM EST Office Visit [facility] [address] [place] [address] Ashlee Hills MD [address] [place] [address] Class 1 obesity with serious comorbidity and [...] the past 12 months, has t he [employer], gas, oil or water company threatened to [...] and appetite are ok. Works as a PROGRAM OR PROJECT ADMINISTRATOR, cleaning. Lives alone. No recent med changes Interim Updates: Health care maintenance -due for mammo and colon, agreeable to referral - needs vision appointment, referral placed - has dentist in place Depression/Anxiety PHQ:9 13 ,CYDNEY 16 No SI , no hallucinations , no karis -hx of Bipolar ??? - saw before-already started care w therapist at [facility], and awaiting psychiatrist -pt refuse to take [...] counseling Blurry vision Relevant Orders Referral to [facility] Screen for colon cancer [...] by ., Disp: 30 patch, Rfl: 2 [place] Translation: Provided by [facility] staff member KAREL Mike documented in this encounter Plan of Treatment Upcoming Encounters Date Type Department Care Team (Late st Contact Info) Description 01/18/2025 9:15 AM EDT Office Visit [facility] [address] [place] [address] Sabi Briceño MD [address] [place] [address] 04/17/2025 2:00 PM EDT Office Visit [facility] [address] [place] [address] Kayy Mejia, OD [address] [place] [address] Scheduled Orders Name Type Priority Associated Diagnoses Orde r Schedule BI Mammogram Screening Tomosynthesis Bilateral Imaging Routine Screening mammogram for breast cancer Expected: 11/25/2024, Expires: 01/23/2026 Scheduled Referrals Name Type Priority Associated Diagnoses Order Schedule Referral to [facility] Outpatient Referral Routine Blurry vision Expected: 11/25/2024 (Approximate), Expires: 11/25/2025 Referral to Gastroenterology Outpatient Referral Routine Screen for colon cancer Expected: 11/25/2024 (Approximate), Expires: 11/25/2025 documented as of this encounter Procedures Procedure Name Priority Date/Time Associated Diagnosis Comments TSH W/REFLEX TO FT4 Routine 11/25/2024 1 1:08 AM EST Class 1 obesity with serious comorbidity and body mass index (BMI) of 33.0 to 33.9 in adult, unspecified obesity type CBC WITH AUTO DIFFERENTIAL Routine 11/25/2024 11:08 AM EST Class 1 obesity with serious comorbidity and body mass index (BMI) of 33.0 to 33.9 in adult, unspecified obesity type HEMOGLOBIN A1C Routine 11/25/2024 11:08 AM EST Class 1 obesity with serious comorbidity and body mass index (BMI) of 33.0 to 33.9 in adult, unspecified obesity type COMPREHENSIVE METABOLIC PANEL Routine 11/25/2024 11:08 AM EST Class 1 obesity with serious comorbidity and body mass index (BMI) of 33.0 to 33.9 in adult, unspecified obesity type documented in this encounter Results * Hemoglobin A1c (11/25/2024 11:08 AM EST) Hemoglobin A1c 5.6 <6.0 % [facility] Comment:Hemoglobin A1C Refer ence Range Adults: 4.8 - 6.0 % Non diabetic: < 6.0 % Goal: < 7.0 %Additional Action Suggested: > 8.0 %Note: Hemoglobin A1c results are invalid for patients with abnormal amounts of HbF. Blood transfusions may impact the HbA1c concentration in the patient sample. Estimated Average Glucose 114 mg/dL [facility] Comment:eAG = Estimated ave rage glucose which is %A1C expressed asaverage glucose, using the formula of the L1Z-[id number] Glucose study (ADAG), Diabetes Care, Vol.31,#8,Apr. 2007 Blood Venous blood specimen / Unknown 11/25/2024 11:08 AM EST 11/25/2024 1:30 PM EST us Ashlee Hills MD LAB BLOOD ORDERABLES Final Res ult [facility] [address] [place] [address] [phone] * (ABNORMAL) Comprehensive Metabolic Panel (11/25/2024 11:08 AM EST) Sodium 139 135 - 145 mmol/L [facility] Potassium 4.0 3.3 - 5.1 mmol/L [facility] Chloride 107 96 - 108 mmol/L [facility] Carbon Dioxide 26 22 - 29 mmol/L [facility] Anion Gap 10(L) 12 - 20 [facility] Urea Nitrogen (BUN) 12 9 - 16 mg/dL [facility] Creatinine, Serum 0.72 0.5 - 1.4 mg/dL [facility] Estimated Glomerular Filt Rate >60 [facility] Comment:Chronic Kidney Disea se: Estimated GFR < 60 mL/min/[id number] Kidney Disease: Estimated GFR < 15 mL/min/1.73m2 Glucose 92 60 - 115 mg/dL [facility] Calcium 8.9 8.4 - 10.2 mg/dL [facility] Bilirubin, Total 0.3 0.0 - 1.0 mg/dL [facility] Aspartate Amino Transferase 22 5 - 31 U/L [facility] Alanine Aminotransferase 12 0 - 31 U/L [facility] Total Protein 8.2(H) 6.5 - 8.0 g/dL [facility] Albumin Level 4.0 3.5 - 5.0 g/dL [facility] Alkaline Phosphatase 61 39 - 117 U/L [facility] Blood Venous blood specimen / Unknown 11/25/2024 11:08 AM EST 11/25/2024 1:30 PM EST us Ashlee Hills MD LAB BLOOD ORDERABLES Final Res ult Performing Organization Address [facility]/ZIP Co de Phone Number [facility] [address] [place] [address] [phone] * (ABNORMAL) CBC auto differential (11/25/2024 11:08 AM EST) White Blood Count 3.7(L) 4.8 - 10.8 X10*3/uL [facility] Red Blood Count 4.42 4.20 - 5.50 X10*6/uL [facility] Hemoglobin 11.8(L) 12.0 - 16.0 g/dl [facility] Hematocrit 37.4 37.0 - 47.0 % [facility] Mean Corpuscular Volume 84.6 80.0 - 98.0 fL [facility] Mean Corpuscular Hemoglobin 26.7(L) 27.0 - 33.0 pg [facility] Mean Corpuscular HGB Conc 31.6 31.0 - 35.0 g/dl [facility] Red Cell Distribution Width 14.8 11.0 - 16.0 % [facility] Platelet Count 258 160 - 400 X10*3/uL [facility] Mean Platelet Volume 11.2 9.4 - 12.3 fL [facility] Neutrophils Percent Auto 41.1(L) 45 - 73 % [facility] Imm Gran Pct Auto 0.3 0.0 - 0.4 % [facility] Lymphocytes Percent Auto 44.7(H) 20 - 40 % [facility] Monocytes Percent Auto 9.8 2 - 11 % [facility] Eosinophils Percent Auto 3.0 0 - 4 % [facility] Basophils Percent Auto 1.1 0 - 2 % [facility] NRBC Pct Auto 0.0 0.0 - 0.2 /100WBC [facility] Neutrophils Absolute Auto 1.5(L) 2.0 - 8.3 x10*3/uL [facility] Imm Gran Abs Auto 0.01 0.00 - 0.03 X10*3/uL [facility] Lymphocytes Absolute Auto 1.6 1.2 - 4.9 X10*3/uL [facility] Monocytes Absolute Auto 0.4 0.1 - 1.2 X10*3/uL [facility] Eosinophils Absolute Auto 0.1 0.0 - 0.4 X10*3/uL [facility] Basophils Absolute Auto 0.0 0.0 - 0.2 X10*3/uL [facility] NRBC Abs Auto 0.000 0.0 - 0.012 X10*3/uL [facility] Blood Venous blood specimen / Unknown 11/25/2024 11:08 AM EST 11/25/2024 1:30 PM EST Ashlee Hills MD LAB BLOOD ORDERABLES Final Res ult Performing Organization Address [facility] Co de Phone Number [facility] [address] [place] [phone] * TSH W/Reflex to FT4 (11/25/2024 11:08 AM EST) TSH reflex Free T4 1.75 0.32 - 4.0 uIU/mL [facility] Blood Venous blood specimen / Unknown 11/25/2024 11:08 AM EST 11/25/2024 1:30 PM EST Ashlee Hills MD LAB BLOOD ORDERABLES Final Res ult Performing Organization Address [facility] de Phone Number [facility] [address] [place] [phone] documented in this encounter Visit Diagnoses Diagnosis Class 1 [...] Noted Time PHQ-9 Depression Total Score: 13 05/2 024 1:31 PM EDT documented as of this encounter Care Teams Spine Surgeon Relationship Specialty Start Date End Date Sabi Briceño MD [address] [place] [phone] PCP - General Internal Medicine 07/07/23 documented as of this encounter
--- OUTSIDE RECORDS SUMMARY | 2024-12-12 18:05 | XMS_ITS | Encounter Summary ---
Author Organization [employer] Address [address] [facility] [address] [place] [address] Care Team Providers Care Tax Technician Name Role Phone Sabi Briceño MD Primary Care Pro vider Encounter Details Date Type Department Care Team ([facility] st Contact Info) Description 12/09/2024 Population Health Risk Score [facility] (C3) Department [address] [phone] Provider, Population Health Generic Social History Tobacco Use Types Packs/Day Years [...] the past 12 months, has t he [employer], gas, oil or water company threatened to [...] Description 01/18/2025 9:15 AM EDT Office Visit [facility] [address] [place], [place] [phone] Sabi Briceño MD [address] [place], [place] [phone] 04/17/2025 2:00 PM EDT Office Visit [facility] [address] [place] [phone] Kayy Mejia, OD [address] [place] [address] documented as of this encounter Visit Diagnoses Not on filedocumented in this encounter Additional Health Concerns Assessment Noted Time PHQ-9 Depression Total Score: 13 024 1:31 PM EDT documented as of this encounter Care Teams Tax Technician Relationship Specialty Start Date End Date Sabi Briceño MD [address] [place] [address] PCP - General Internal Medicine 07/07/23 documented as of this encounter
--- OUTSIDE RECORDS SUMMARY | 2024-12-12 18:05 | XMS_ITS | Clinical Summary ---
Author Organization [employer] Address [address] [facility] 7t [place] [address] Care Team Providers Care Autographer Name Role Phone Sabi Briceño MD Primary [...] order (will not trigger notification to Pharmacy)) cyclobenzaprine (Flexeril) 10 MG tabletIndicatio ns:Lumbar spondylosis One tab po at bedtime prn pain of muscles, do not drive with medicaion 10 tablet 10/10/19 025 Discontinued(Th erapy completed) Active Problems Problem [...] Encounters Date Type Department Care Team Description 12/09/2024 [facility] Risk Score [facility] () Department [address] [place] [phone] Provider, Population Health Generic 11/25/2024 10:30 AM EST Office Visit [address] [address] Ashlee Hills MD Class 1 obesity with serious comorbidity and body mass index (BMI) of 33.0 to 33.9 in adult, unspecified obesity type (Primary Dx); 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 (CMS/HCC); Dietary counseling; Exercise counseling; Blurry vision; Screen for colon cancer; Screening mammogram for breast cancer; Fibromyalgia; Primary hypertension 11/25/[address] [facility] [address] [place] [address] Ashlee Hills MD 11/25/2024 Travel 11/23/[address] [phone] Kristy Mcgowan, ANP Results 11/11/2024 Patient Outreach [address] [address] Sabi Briceño MD Pre-visit Planning ((Unable to reach for PVP screening and or LVM)) 10/10/2024 11:15 AM EST Office Visit [address] [address] Jaqueline Vidales MD Lumbar spondylosis (Primary Dx) 10/10/[address] [facility] [address] [facility], [place] [phone] Sabi Briceño MD 10/10/2024 Travel 10/06/[address] [facility] [address] [facility], [place] [phone] Sabi Briceño MD Nurse Triage 09/16/[address] [facility] [address] [place] [address] Sabi Briceño MD from Last 3 Months [...] your housing situation today? I have brad sing 06/30/[address] you li [...] Description 01/18/2025 9:15 AM EDT Office Visit [facility] [address] [place] [address] Sabi Briceño MD [address] [place] [address] 04/17/2025 2:00 PM EDT Office Visit [facility] OPTOMETRY [address] [place] [address] Kayy Mejia, OD [address] [place] [address] Health Maintenance Due Date Last Done Comments [...] Procedure Name Priority Date/Time Associated Diagnosis Comments HEMOGLOBIN A1C Routine 11/25/2024 11:08 AM EST [...] to 33.9 in adult, unspecified obesity type TSH W/REFLEX TO FT4 Routine 11/25/2024 1 1:08 AM EST Class 1 obesity with serious comorbidity and body mass index (BMI) of 33.0 to 33.9 in adult, unspecified obesity type HEPATITIS C AB W/REFL TO HCV RNA, [...] Recently Relevant to Health Maintenance Results * TSH W/Reflex to FT4 (11/25/2024 11:08 AM EST) TSH reflex Free T4 1.75 0.32 - 4.0 uIU/mL [facility] Blood Venous blood specimen / Unknown 11/25/2024 11:08 AM EST 11/25/2024 1:30 PM EST us Ashlee Hills MD LAB BLOOD ORDERABLES Final Res ult [facility] [address] [place], [place] [phone] * (ABNORMAL) CBC auto differential (11/25/2024 11:08 AM EST) White Blood Count 3.7(L) 4.8 - 10.8 X10*3/uL [facility] Red Blood Count 4.42 4.20 - 5.50 X10*6/uL [facility] Hemoglobin 11.8(L) 12.0 - 16.0 g/dl [facility] Hematocrit 37.4 37.0 - 47.0 % [facility] Mean Corpuscular Volume 84.6 80.0 - 98.0 fL [facility] Mean Corpuscular Hemoglobin 26.7(L) 27.0 - 33.0 pg [facility] Mean Corpuscular HGB Conc 31.6 31.0 - 35.0 g/dl [facility] Red Cell Distribution Width 14.8 11.0 - 16.0 % [facility] Platelet Count 258 160 - 400 X10*3/uL [facility] Mean Platelet Volume 11.2 9.4 - 12.3 fL [facility] Neutrophils Percent Auto 41.1(L) 45 - 73 % [facility] Imm Gran Pct Auto 0.3 0.0 - 0.4 % [facility] Lymphocytes Percent Auto 44.7(H) 20 - 40 % [facility] Monocytes Percent Auto 9.8 2 - 11 % [facility] Eosinophils Percent Auto 3.0 0 - 4 % [facility] Basophils Percent Auto 1.1 0 - 2 % [facility] NRBC Pct Auto 0.0 0.0 - 0.2 /100WBC [facility] Neutrophils Absolute Auto 1.5(L) 2.0 - 8.3 x10*3/uL [facility] Imm Gran Abs Auto 0.01 0.00 - 0.03 X10*3/uL [facility] Lymphocytes Absolute Auto 1.6 1.2 - 4.9 X10*3/uL [facility] Monocytes Absolute Auto 0.4 0.1 - 1.2 X10*3/uL [facility] Eosinophils Absolute Auto 0.1 0.0 - 0.4 X10*3/uL [facility] Basophils Absolute Auto 0.0 0.0 - 0.2 X10*3/uL [facility] NRBC Abs Auto 0.000 0.0 - 0.012 X10*3/uL [facility] Blood Venous blood specimen / Unknown 11/25/2024 11:08 AM EST 11/25/2024 1:30 PM EST Ashlee Hills MD LAB BLOOD ORDERABLES Final Res ult Performing Organization Address [facility]/ZIP Co de Phone Number [facility] [address] [place] [phone] * Hemoglobin A1c (11/25/2024 11:08 AM EST) Hemoglobin A1c 5.6 <6.0 % [facility] Comment:Hemoglobin A1C Refer ence Range Adults: 4.8 - 6.0 % Non diabetic: < 6.0 % Goal: < 7.0 %Additional Action Suggested: > 8.0 %Note: Hemoglobin A1c results are invalid for patients with abnormal amounts of HbF. Blood transfusions may impact the HbA1c concentration in the patient sample. Estimated Average Glucose 114 mg/dL [facility] Comment:eAG = Estimated ave rage glucose which is %A1C expressed asaverage glucose, using the formula of the J1Z-MxbqrlsCvswlnl Glucose study (ADAG), Diabetes Care, Vol.31,#8,Apr. 2007 Blood Venous blood specimen / Unknown 11/25/2024 11:08 AM EST 11/25/2024 1:30 PM EST Ashlee Hills MD LAB BLOOD ORDERABLES Final Res ult Performing Organization Address [facility]/ZIP Co de Phone Number [facility] [address] [place] [phone] * (ABNORMAL) Comprehensive Metabolic Panel (11/25/2024 11:08 AM EST) Sodium 139 135 - 145 mmol/L [facility] Potassium 4.0 3.3 - 5.1 mmol/L [facility] Chloride 107 96 - 108 mmol/L [facility] Carbon Dioxide 26 22 - 29 mmol/L [facility] Anion Gap 10(L) 12 - 20 [facility] Urea Nitrogen (BUN) 12 9 - 16 mg/dL [facility] Creatinine, Serum 0.72 0.5 - 1.4 mg/dL [facility] Estimated Glomerular Filt Rate >60 [facility] Comment:Chronic Kidney Disea se: Estimated GFR < 60 mL/min/1.03l7Uyvndx Kidney Disease: Estimated GFR < 15 mL/min/1.73m2 Glucose 92 60 - 115 mg/dL [facility] Calcium 8.9 8.4 - 10.2 mg/dL [facility] Bilirubin, Total 0.3 0.0 - 1.0 mg/dL [facility] Aspartate Amino Transferase 22 5 - 31 U/L [facility] Alanine Aminotransferase 12 0 - 31 U/L [facility] Total Protein 8.2(H) 6.5 - 8.0 g/dL [facility] Albumin Level 4.0 3.5 - 5.0 g/dL [facility] Alkaline Phosphatase 61 39 - 117 U/L [facility] Blood Venous blood specimen / Unknown 11/25/2024 11:08 AM EST 11/25/2024 1:30 PM EST us Ashlee Hills MD LAB BLOOD ORDERABLES Final Res ult [facility] [address] [place] [phone] * Hepatitis C Antibody with Reflex to HCV, RNA, Quantitative, Real-Time PCR (11/07/2022 11:44 AM EST) Hepatitis C Antibody NON-REACT RUPINDER NON-REACT RUPINDER [facility] [place] [facility] Index 0.04 <1.00 [facility] [place] [facility] Comment: HCV antibody was non-reactive. There is no laboratory evidence of HCV infection. In most cases, no further action is required. However, if recent HCV exposure is suspected, a test for HCV RNA (test code 64723) is suggested. For additional information please refer to http://CasaSwap.com.[employer]/faq/UIN68a3 (This link is being provided for informational/ educational purposes only.) Blood Venous blood specimen / Unknown 11/07/2022 11:44 AM EST 11/07/2022 11:45 AM EST Narrative [facility] - 11/08/2022 7:04 PM EST FASTING:YES FASTING: YES Dorothea Clifford RN ONCOLOGY LAB BLOOD ORDERABLES Final Result [facility] [address] [facility] [place], [place] [address] [facility] [place] [facility] [address] [facility], ([address]) [place] [address] * HIV-1/2 Antigen and Antibodies, Fourth Generation, with Reflexes (11/07/2022 11:44 AM EST) Pathologist [facility] HIV Antigen/Antibody, 4th Generation NON-REAC TIVE NON-REAC TIVE [facility] [place] [facility] Comment: HIV-1 antigen and HIV-1/HIV-2 antibodies were [...] ?? For additional information please refer to http://CasaSwap.com.[employer]/faq/CVA001 (This link is being provided for informational/ educational purposes only.) The performance of this assay has not been clinically validated in patients less than 2 years old. Blood Venous blood specimen / Unknown 11/07/2022 11:44 AM EST 11/07/2022 11:45 AM EST Narrative [facility] - 11/08/2022 7:04 PM EST FASTING:YES FASTING: YES us Dorothea Clifford RN ONCOLOGY LAB BLOOD ORDERABLES Final Result [facility] [address] [facility] [place], [place] [address] [facility] [place] [facility] [address] [facility], ([address]) [place] [address] * (ABNORMAL) Lipid Panel, Standard (11/07/2022 11:44 AM EST) Cholesterol, Total 214(H) <200 mg/dL [facility] [place] [facility] HDL Cholesterol 73 > OR = 50 mg/dL [facility] [place] [facility] Triglycerides 119 <150 mg/dL [facility] [place] [facility] LDL Cholesterol 118(H) mg/dL (calc) [facility] [place] [facility] Comment: Reference range: <100 Desirable range <100 mg/dL for primary prevention; ?? <70 mg/dL for patients with CHD or diabetic patients with > or = 2 CHD risk factors. LDL-C is now calculated using the Jerry-Guillaume calculation, which is a validated novel method providing better accuracy than the Friedewald equation in the estimation of LDL-C. Jerry SS et al. KIYA. 2013;310(19): 6649-9751 (http://education.Azuqua/faq/YST941) Chol/HDLC Ratio 2.9 <5.0 (calc) [facility] [place] [facility] Non-HDL Cholesterol 141(H) <130 mg/dL (calc) [facility] [place] [facility] Comment: For patients with diabetes plus 1 major ASCVD risk factor, treating to a non-HDL-C goal of <100 mg/dL (LDL-C of <70 mg/dL) is considered a therapeutic option. Blood Venous blood specimen / Unknown 11/07/2022 11:44 AM EST 11/07/2022 11:45 AM EST Narrative [facility] - 11/08/2022 7:04 PM EST FASTING:YES FASTING: YES Dorothea Clifford RN ONCOLOGY LAB BLOOD ORDERABLES Final Result [facility] [address] [facility], 3rd [address], [place] [address] [facility] [address] [facility], ([address]) [place] [address] * Mammography Report 1 (07/01/2021 10:45 AM EDT) Anatomical Region Laterality Modality Breast Bilateral Mammography 07/01/2021 10:4 5 AM EDT Narrative 07/02/2021 10:32 AM EDT Refer to the Notes tab for result details [facility] Procedure: Mammography Report 1 Procedure Note Provider, MD Taisha - 12/21/2022 Refer to the Notes tab for result details [facility] Procedure: Mammography Report 1 Emi Monteiro INTERACTIVE PRODUCER IMG BI PROCEDURES Final Result * THINPREP PAP (06/11/2021 12:00 AM EDT) Clinical Information: None given [facility] [...] historic and ?? current clinical information. ?? Civil Rights Investigator : SEE COMMENT [facility] Comment: RXB, CT(ASCP) CT screening location: [address] ??[phone] Interpretation/R esult: Negative for intraepithelial lesion or malignancy. [facility] LMP: NONE GIVEN [facility] Prev. BX: NONE [facility]IVEN [facility] Prev. PAP: NONE [facility]IVEN [facility] SOURCE: None given [facility] Statement Of Adequacy: SEE COMMENT [facility] Comment: Satisfactory for evaluation. Endocervical/transformation zone component present. Age and/or menstrual status not provided 06/11/2021 Emi Monteiro NP LAB PATHOLOGY ORDERABLES Final Result Performing Organization Address [facility] Co de Phone Number [facility] [address] * HPV mRNA E6/E7 (06/11/2021 12:00 AM EDT) HPV nRNA E6/E7 Not Detected Not Detected [facility] Comment: Methodology: Satellite Installation Technician-Mediated Amplification This assay detects E6/E7 viral messenger RNA (mRNA) from 14 high-risk HPV types (16,18,31,33,35,39,45,51,52,56,58,59,66,68). ? The analytical performance characteristics of this assay have been determined by [facility]. The modifications have not been cleared or approved by the FDA. This assay has been validated pursuant to the CLIA regulations and is used for clinical purposes. ?? For additional information, please refer to http://education.[employer]/faq/JRJ230l2 (This link if provided for information/ educational purposes only.) 06/11/2021 Emi Monteiro NP LAB BLOOD ORDERABLES Final Resu lt Performing Organization Address [facility] Co de Phone Number [facility] [address] from Last 3 Months or Most Recently Relevant to Health Maintenance Insurance [id number] Care Teams Autographer Relationship Specialty Start Date End Date Sabi Briceño MD [address] [place] [phone] PCP - General Internal Medicine 07/07/23
== END 2024-12-12 15:38 | disposition home or self-care (01) ==
LOC: HO.MAMMO 15:37
PROVIDERS: PCP Student in an Organized Health Care Education/Training Program; Visit Provider General Practice
DX: Z12.31 Encounter for screening mammogram for malignant neoplasm of breast (principal)
CPT/HCPCS: 77063; 77067

== ENCOUNTER → 2024-12-12 15:45 | Outpatient (BNV) | payer MEDICAID, SELFPAY | PROVIDERS: PCP Student in an Organized Health Care Education/Training Program; Visit Provider Internal Medicine | DX: Z12.31 Encounter for screening mammogram for malignant neoplasm of breast (principal) | CPT/HCPCS: 77063; 77067 ==

== ENCOUNTER 2025-04-20 14:05 | Outpatient (REF) | payer MEDICAID, SELFPAY ==
--- NOTE | ~2025-04-20 | XR_ITS ---
EXAMINATION: XR LUMBOSACRAL SPINE CLINICAL INFORMATION: chronic low back pain COMPARISON: None available. TECHNIQUE: Three views of the lumbosacral spine. FINDINGS: There are 5 nonrib-bearing lumbar segments. Vertebral body height and alignment is preserved. L4-5 demonstrates mild disc space narrowing and small marginal osteophyte anteriorly. XR/XR lumbar spine 2-3V IMPRESSION: L4-5 demonstrates mild degenerative disc disease. Electronically signed by: Leonel Cavazos MD 04/20/2025 03:24 PM EDT
--- OUTSIDE RECORDS SUMMARY | 2025-04-20 14:10 | XMS_ITS | Encounter Summary ---
Author Organization [employer] Address [address] [facility] 7t [place] [address] Care Team Providers Care Gauge Maker Apprentice Name Role Phone Sabi Briceño MD Primary Care Pro vider Encounter Details Date Type Department Care Team (Latest Contact Info) Description 04/20/2025 Travel Social History Tobacco Use Types Packs/Day [...] Answer Date Recorded Patient Health Questionnaire-9 Score 0 01/18/2025 Patient Health Questionnaire-9 Score 0 01/18/2025 Last PHQ-9: Questionnaire Data Not on file 0 01/18/2025 Housing Stability Answer Date Recorded What is your housing situation today? I have brad cerrato 01/09/[address] you li ve. Do you have problems with any of the following? None of the above 01/09/2025 Food Insecurity Answer Date Recorded Within the past 12 months, y ou worried that your food would run out before you got money to buy more: Sometimes True 2024 Within the past 12 months,th e food you bought just didn't last and you didn't have enough money to get more: Sometimes True 01/09/2025 Transportation Answer Date Recorded In the past [...] Answer Date Recorded Patient Health Questionnaire-2 Score 0 01/18/2025 Internet Access Answer Date Recorded Internet Access [...] Care Team (Late st Contact Info) Description 04/27/2025 11:00 AM EDT Office Visit [facility] [address] [place] [address] Roberto, Kayy, OD [address] [place] [address] 05/12/2025 9:00 AM EDT Nutrition [facility] [address] [place] [address] Mar Ashton, RD [address] [place] [address] documented as of this encounter Visit Diagnoses Not on filedocumented in this encounter Additional Health Concerns Assessment Noted Time PHQ-9 Depression Total Score: 0 01/19/20 25 9:45 AM EDT documented as of this encounter Care Teams Gauge Maker Apprentice Relationship Specialty Start Date End Date Sabi Briceño MD [address] [place] [phone] PCP - General Internal Medicine 07/07/23 documented as of this encounter
== END 2025-04-20 14:06 | disposition home or self-care (01) ==
LOC: HO.HHCX 14:05
PROVIDERS: PCP Student in an Organized Health Care Education/Training Program; Visit Provider Family Medicine
DX: M47.816 Spondylosis without myelopathy or radiculopathy, lumbar region (principal)
CPT/HCPCS: 72100

== ENCOUNTER → 2025-04-20 14:10 | Outpatient (BNV) | payer MEDICAID, SELFPAY | PROVIDERS: PCP Student in an Organized Health Care Education/Training Program; Visit Provider Radiology Diagnostic Radiology | DX: M54.50 Low back pain, unspecified (principal) | CPT/HCPCS: 72100 ==

== ENCOUNTER 2025-05-10 13:32 | Outpatient (AMB) | payer MEDICAID, SELFPAY ==
[2025-05-10 13:36] VITALS: BP 131/72; PULSE 98; BMI 31.0
--- NOTE | 2025-05-10 13:36 | A.OFFVIS_ITS ---
Vital Signs 05/10/25 13:36 Height 5 ft 6 in Weight 191 lb 12.835 oz BMI 31.0 BP 131/72 Blood Pressure Location Lt brachial Position Sitting Pulse 98 Intake Visit Reasons: Colonoscopy Screening Intake Note: New patient in office today for colonoscopy screening. CC: She c/o constipation, hemorrhoids, and heartburn when she eats late. Pathological Technician Required: Yes Pathological Technician Language: Bolivian Accompanied by: Self / Same As Patient Allergies No Known Allergies Allergy (Verified 05/10/25 13:44) HPI HPI Colonoscopy Screening: Details: 44 year old? female with past medical history of anxiety, depression, hypertension is here today for pre colonoscopy screening.? [facility]CP.? This is her first colonoscopy screening.? Patient reports constipation. Sometimes no bowel movement 3-7 days. Patient currently is not using anything. Denies melena, hematochezia. Reports acid reflux towards the end of the day. Patient tries to eat small meal in the evening. Patient reports epigastric pain and burning. Acid reflux with dyspepsia without dysphagia or odynophagia. Denies any personal or family history of gastrointestinal disease, colon polyps, or CRC.? Denies history of difficulty with sedation or anesthesia in the past.? Negative for history of sleep apnea.? Denies any history of cardiac, renal, pulmonary, or hepatic disease.?? No history of infectious? diseases like hepatitis A, B, C, HIV or tuberculosis.? Patient is not on any anticoagulation [facility] Medical History (Updated 05/10/25 @ 13:52 by Karen Becerra [facility]) HTN (hypertension) Acute anxiety Surgical History H/O section Family History (Updated 05/10/25 @ 13:46 by JAKE Mccloud) Brother Eye cancer Social History (Updated 05/10/25 @ 13:45 by JAKE Mccloud) Alcohol intake: never Patient Tobacco Use Status: Never used Tobacco Review of Systems Const Denies weight gain and Denies weight loss ENT Reports no additional complaints, Denies dysphagia and Denies odynophagia Card Reports no additional complaints Resp Reports no additional complaints GI Denies abdominal pain, Denies belching, Denies melena, Denies bloating, Denies change in bowel habits, Reports constipation, Denies dysphagia, Denies excessive flatus, Denies dyspepsia, Reports heartburn, Denies diarrhea, Denies loose stools, Denies nausea, Denies odynophagia and Denies vomiting Musc Reports no additional complaints Neuro Reports no additional complaints Psych Reports no additional complaints Endo Reports no additional complaints Physical Exam Vital Signs: Last Vital Signs Pulse 98 05/10/25 13:36 BP 131/72 05/10/25 13:36 BMI result Body Mass Index 31.0 Const General: healthy appearing, no acute distress and well developed Nutritional Appearance: well nourished Orientation/consciousness: patient oriented x3 Resp Effort & Inspection: normal respiratory effort, able to speak in complete sentences, no tracheal deviation and symmetric chest movement Auscultation: clear to auscultation bilaterally Cardio Rate: regular rate GI Inspection: Yes normal to inspection and No distended Palpation (GI): Soft to palpation, not firm, nontender and No hepatosplenomegaly present Auscultation: normal bowel sounds General: Yes no CVA tenderness Back/Spine/Pelvis Back: no CVA tenderness Skin General skin exam: elasticity normal, turgor normal and dry skin Neuro General: patient oriented x3 Psych Appearance: grossly normal Mental Status: mental status grossly normal Assessment & Plan Assessment & Plan (1) Screen for colon cancer: Code(s): Z12.11 - Encounter for screening for malignant neoplasm of colon (2) GERD (gastroesophageal reflux disease): Code(s): K21.9 - Gastro-esophageal reflux disease without esophagitis Qualifiers: Esophagitis presence: esophagitis presence not specified Qualified Code(s): K21.9 - Gastro-esophageal reflux disease without esophagitis (3) Constipation: Code(s): K59.00 - Constipation, unspecified Qualifiers: Constipation type: slow transit constipation Qualified Code(s): K59.01 - Slow transit constipation Plan Patient denies any cardiac or respiratory symptoms.? Patient reports constipation. Will send her script for Dulcolax. Increase fluid intake and activity to promote better bowel motility. Patient reports acid reflux. Will send her script for omeprazole. Patient was encouraged to avoid dietary triggers and late night snacking. Staying upright for minimum 3 hours after meals discussed with patient. Patient will be sent for upper endoscopy to rule out gastritis, esophagitis, duodenitis, Barretts, H pylori. Denies any issues with anesthesia in the past.? Denies any history of sleep apnea.? No history infectious diseases in the past or present.? Not on any anticoagulation therapy.? No family or personal history of colon cancer or polyps.? Patient denies melena, hematochezia, unintentional weight loss or ribbon like stools.? Discussed at length the pre-procedure,? prep, diet & medications as well as what to expect prior, during and after the procedure.?? Stressed the importance of good bowel prep.? Recommended the use of Vaseline or Calmoseptine OTC & baby wipes with bowel movements to promote comfort.? ?Patient verbalizes understanding and agrees to plan of care.? She was given the opportunity to ask questions and all questions answered.? We will see her after the procedure.? Medications: New bisacodyl (Dulcolax (bisacodyl)) 10 mg (2 x 5 mg) PO BEDTIME 180 tabs 4RF polyethylene glycol 3350 (Miralax) As directed by gastroenterology department at [facility] 238 grams PO ONCE 238 grams 0RF Z12.11 - Encounter for screening for malignant neoplasm of colon omeprazole 20 mg PO DAILY 30 caps 3RF K21.9 - Gastro-esophageal reflux disease without esophagitis Coding Level of Care Code New Pt Level 4 (37224) Diagnoses Screen for colon cancer Z12.11 Gastroesophageal reflux disease, unspecified whether esophagitis present K21.9 Esophagitis presence: esophagitis presence not specified Slow transit constipation K59.01 Constipation type: slow transit constipation Time Spent (min) 50 Comment 35 minutes with patient and additional 15 minutes spent reviewing her records
== END 2025-05-10 14:05 | disposition home or self-care (01) ==
LOC: HO.HGI 13:33
PROVIDERS: PCP Student in an Organized Health Care Education/Training Program; Visit Provider Nurse Practitioner Family
DX: Z01.818 Encounter for other preprocedural examination (principal); Z12.11 Encounter for screening for malignant neoplasm of colon; K59.01 Slow transit constipation; K21.9 Gastro-esophageal reflux disease without esophagitis
CPT/HCPCS: 99204

== ENCOUNTER → 2025-05-10 13:32 | Outpatient (BNVA) | payer MEDICAID, SELFPAY | PROVIDERS: PCP Student in an Organized Health Care Education/Training Program; Visit Provider Nurse Practitioner Family | DX: Z01.818 Encounter for other preprocedural examination (principal); K21.9 Gastro-esophageal reflux disease without esophagitis; K59.01 Slow transit constipation | CPT/HCPCS: 99212 ==

== ENCOUNTER 2025-06-14 10:08 | Outpatient (REF) | payer MEDICAID, SELFPAY ==
[2025-06-14 11:30] LABS: Hematocrit 36.0 % (37.0-47.0); Hemoglobin 11.4 g/dl (12.0-16.0); Mean Corpuscular HGB Conc 31.7 g/dl (31.0-35.0); Mean Corpuscular Hemoglobin 25.5 pg (27.0-33.0); Mean Corpuscular Volume 80.5 fL (80.0-98.0); NRBC Abs Auto 0.000 X10*3/uL (0.0-0.012); NRBC Pct Auto 0.0 /100WBC (0.0-0.2); Platelet Count 257 X10*3/uL (160-400); Red Blood Count 4.47 X10*6/uL (4.20-5.50); White Blood Count 3.7 X10*3/uL (4.8-10.8)
--- OUTSIDE RECORDS SUMMARY | 2025-06-14 12:18 | XMS_ITS | Clinical Summary ---
Author Organization [email or web address] Address [address] [place] [address] [address] [place] [address] Care Team Providers Care Exhaust Emissions Inspector Name Role Phone Sabi Briceño MD Primary Care Pro vider Allergies No known active allergies Medications * This document contains information received from the source organization and may not represent a complete record from that organization. hydrOXYzine pamoate (Vistaril) 25 MG capsule Take 1 capsule (25 mg) by mouth every 8 (eight) hours if needed for anxiety. 90 capsule 3 5 Active cholecalciferol (Vitamin D-3) 25 MCG (1000 UT) tablet Take 1 tablet (25 mcg) by mouth Once per day. 90 tablet 3 5 11/25/19 26 Active cetirizine (ZyrTEC) 10 MG tablet Take 1 tablet (10 mg) by mouth Once per day. 90 tablet 3 5 11/20/19 26 Active ferrous sulfate (Fe Tabs) 325 (65 Fe) MG EC tablet Take 1 tablet (325 mg) by mouth with breakfast. Do not crush, chew, or split. 90 tablet 3 5 12/30/19 26 Active Blood Pressure kit 1 Device Once per day. 1 kit 5 Active gabapentin (Neurontin) 300 MG capsule Take 1 capsule (300 mg) by mouth at bedtime. 90 capsule 2 5 01/19/20 26 Active amLODIPine (Norvasc) 10 MG tabletIndications :Primary hypertension Take 1 tablet (10 mg) by mouth Once per day. 90 tablet 5 04/20/20 26 Active lidocaine (Lidoderm) 5 % patchIndications: Fibromyalgia Apply 1 patch topically Once per day. Remove & discard patch within 12 hours or as directed by MD. 30 patch 2 Active Active Problems Problem Noted Date Diagnosed Date Health care maintenance 01/18/2025 Dysmenorrhea 01/18/2025 Obesity (BMI 30-39.9) 01/18/2025 Severe mixed bipolar I disorder with psychotic f eatures 11/25/2024 Anxiety in acute stress reaction 02/20/2024 Hypertension 02/20/2024 Fibromyalgia 10/21/2022 Carpal tunnel syndrome 10/21/2022 Neutropenia 10/21/2022 Vitamin D deficiency 10/21/2022 MDD (major depressive disord er), recurrent episode, [...] Encounters Date Type Department Care Team Description 06/14/2025 Telephone [facility] MEDICINE [address] [place], [place] [phone] Sabi Briceño MD Med Refill 06/14/2025 Orders Only [facility] [address] [place], [place] [phone] Martina Clinton, RN Screening for tuberculosis 06/09/2025 Outside Procedure [facility] OPTOMETRY [address] [place] [address] Kayy Mejia, OD Presbyopia (Primary Dx) 06/07/2025 10:00 AM EDT Office Visit [facility] OPTOMETRY [address] [place], [place] [phone] Kayy Mejia, OD Myopia of both eyes (Primary Dx) 05/16/2025 10:00 AM EDT Nutrition [facility] DIABETES/NUTRITION [address] [place] [address] AdenikeMar hameed, RD Obesity (BMI 30-39.9) 05/16/2025 Travel 05/10/2025 Telephone [facility] MEDICINE [address] [place] [phone] Sabi Briceño MD Referral 05/05/2025 Orders Only [facility] [address] [place] [phone] Sabi Briceño MD Dysmenorrhea (Primary Dx); Menorrhagia with regular cycle 05/02/[address] [address] Sabi Briceño MD Call Back Request; Referral 05/01/[address] [address] Sabi Briceño MD oct. 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); Tortuous retinal veins; Crowded optic disc, bilateral; Presbyopia 04/27/2025 Travel 04/26/2025 Orders Only [facility] [address] [place] [phone] Sabi Briceño MD Chronic low back pain without sciatica, unspecified back pain laterality (Primary Dx) 04/26/2025 Telephone [facility] [address] [place] [phone] Sabi Briceño MD Referral 04/20/2025 1:30 PM EDT Office Visit [facility] [address] [place] [phone] Sabi Briceño MD Health care maintenance (Primary Dx); Primary hypertension; Fibromyalgia; Obesity (BMI 30-39.9); Chronic low back pain without sciatica, unspecified back pain laterality; Lumbar spondylosis 04/20/2025 Results Follow-Up [facility] [address] [place] [address] Sabi Briceño MD XR Lumbar Spine 2-3 Views 04/20/2025 Travel from Last 3 Months Immunizations Immunization Administration Dates Next Due DTaP 12/08/2017,05/17/2014,11/16/2012 Hep [...] Name Comments Diabetes Brother Mental illness Brother unspecified maligancy Brother Diabetes Father Asthma Sister Migraines Sister [...] the past 12 months, has t he [employer], gas, oil or water company threatened to shut off services in your home? No 06/30/2024 Depression Answer Date Recorded Patient Health Questionnaire-2 Score 0 01/18/2025 Internet Access Answer Date Recorded Internet Access Q1 Yes 06/30/2024 Internet Access Q2 Not on file 06/30/2024 Comments Unknown Intention Date Recorded No desire to become (finding) 0 11/25/2024 Sex and Gender Information Value Date Recorded Sex Assigned at Female 07/28/2022 10:20 AM EDT Legal Sex Female 10:20 AM EDT Gender Identity Female 07/28/2022 10:20 AM EDT Sexual Orientation Straight 07/28/2022 10 :20 AM EDT Last Filed Vital Signs Vital Sign Reading Time Taken Comments Blood Pressure 148/80 04/20/2025 1:32 PM EDT Pulse 88 04/20/2025 1:32 PM EDT Temperature 36.3 C (97.3 F) 04/20/2025 1:32 PM EDT Respiratory Rate 20 04/20/2025 1:32 PM EDT Oxygen Saturation 97% 01/18/2025 9:42 AM EDT Inhaled Oxygen Concentration - - Weight 86.2 kg (190 lb) 05/16/2025 1:27 PM EDT Height 160 cm (5' 3 ) 05/16/2025 1:27 PM EDT Body Mass Index 33.66 05/16/2025 1:27 PM EDT Plan of Treatment Upcoming Encounters Date Type Department Care Team (Late st Contact Info) Description 06/29/2025 2:15 PM EDT Office Visit [facility] [address] [place], [place] [phone] Sabi Briceño MD [address] [place], [place] [phone] Health Maintenance Due Date Last Done Comments CT Colonography 1979 Colonoscopy 1979 Colorectal Cancer Screening 1979 FIT DNA/Cologuard 1979 FIT 1979 FOBT 1980 Sigmoidoscopy 1979 HPV Vaccines (1 - 3-dose series) 1994 Hepatitis B Vaccines (1 of 3 - 19+ 3-dose series) 1998 05/30/2011, 10/21/2010, 07/26/2009 COVID-19 Vaccine ( season) 2025 01/10/2022, 01/10/2021 Influenza Vaccine (#1) 2025 , 08/07/2017, 07/06/2012, Additional history exists Alcohol/Substance Use Screening 11/25/2025 11/25/2024 Family Planning (PISQ) 11/25/2025 11/25/2024 SDOH Screening 01/09/2026 01/09/2025 Depression Screening 01/18/2026 01/18/2025, 01/19/20 25 Disability Screening 01/18/2026 01/18/2025 Tobacco Screening 05/13/2026 05/13/2025 Cervical Cancer Screening 06/11/2026 HPV/Cotest 06/11/2026 06/11/2021, 08/07/2017 Pap Smear 06/11/2026 06/11/2021 Mammogram 12/12/2026 12/12/2024, 07/01/2021 Lipid Panel 11/07/2027 11/07/2022, 05/15/2021 Zoster Vaccines [...] patient's age to complete this topic Meningococcal B Vaccine Aged Out No l onger eligible based on patient's age to complete this topic Meningococcal Vaccine Aged Out No toni funmi eligible based on patient's age to complete this topic Pneumococcal Vaccine: Pediatrics (0 to 5 Years) and At-Risk Patients (6 to 49) Years Aged Out No longer eligible based on patient's age to complete this topic RSV under 20 months Aged Out No longe r eligible based on patient's age to complete this topic Rotavirus Vaccines Aged Out No longer eligible based on patient's age to complete this topic Procedures Procedure Name Priority Date/Time Associated Diagnosis Comments CBC Routine 06/14/2025 10:22 AM EDT Health care maintenance FUNDUS PHOTOS - OU - BOTH EYES Routine 04/27/2025 11:00 AM EDT Tortuous retinal veins XR LUMBAR SPINE 2-3 VIEWS Routine 04/20/2025 1:40 PM EDT Lumbar spondylosis BI MAMMOGRAM SCREENING TOMOSYNTHESIS BILATERAL Routine 12/12/2024 3:45 PM EDT Screening mammogram for breast cancer HEPATITIS C AB W/REFL TO HCV RNA, QN, PCR Routine 11/07/2022 11:44 AM EST Encounter for well adult exam with abnormal findings HIV 1/2 ANTIGEN/ANTIBODY, FOURTH GENERATION W/RFL Routine 11/07/2022 11:44 AM EST Encounter for well adult exam with abnormal findings LIPID PANEL, STANDARD Routine 11/07/2022 11:44 AM EST Encounter for well adult exam with abnormal findings HPV MRNA E6/E7 Routine 06/11/2021 12:00 AM EDT THINPREP PAP Routine 06/11/2021 12:00 AM EDT from Last 3 Months or Most Recently Relevant to Health Maintenance Results * (ABNORMAL) CBC (06/14/2025 10:22 AM EDT) White Blood Count 3.7(L) 4.8 - 10.8 X10*3/uL [facility] Red Blood Count 4.47 4.20 - 5.50 X10*6/uL [facility] Hemoglobin 11.4(L) 12.0 - 16.0 g/dl [facility] Hematocrit 36.0(L) 37.0 - 47.0 % [facility] Mean Corpuscular Volume 80.5 80.0 - 98.0 fL [facility] Mean Corpuscular Hemoglobin 25.5(L) 27.0 - 33.0 pg [facility] Mean Corpuscular HGB Conc 31.7 31.0 - 35.0 g/dl [facility] Red Cell Distribution Width 14.9 11.0 - 16.0 % [facility] Platelet Count 257 160 - 400 X10*3/uL [facility] Mean Platelet Volume 11.4 9.4 - 12.3 fL [facility] NRBC Pct Auto 0.0 0.0 - 0.2 /100WBC [facility] NRBC Abs Auto 0.000 0.0 - 0.012 X10*3/uL [facility] Blood Venous blood specimen / Unknown 06/14/2025 10:22 AM EDT 06/14/2025 11:14 AM EDT us Sabi Crouch MD LAB BLOOD ORDERAB LES Final Result [facility] [address] [place] [address] [phone] * Fundus Photos - OU - Both Eyes (04/27/2025 11:00 AM EDT) Narrative Kayy Mejia, OD - 05/15/2025 3:20 PM EDT Images from the original result were not included. Right Eye Progression has been stable. Disc findings include normal observations. Macula findings include normal observations. Vessel findings include (2-3+ tortuous retinal veins, 1+ tortuous arterioles, no crossing changes). Periphery findings include normal observations. Left Eye Progression has been stable. Disc findings include normal observations. Macula findings include normal observations. Vessel findings include (2-3+ tortuous retinal veins, 1+ tortuous arterioles, no crossing changes). Periphery findings include normal observations. Notes Assessment and Plan: Small crowded optic discs, 2-3+ tortuous retinal veins, 1+ tortuous arterioles. No crossing changes. Findings are stable to 02/2023 photos. Likely congenital, but will continue to monitor at her complete exams. us Kayy Mejia OD OPHTH PHOTOGRAPHY Final Resul t * XR Lumbar Spine 2-3 Views (04/20/2025 1:40 PM EDT) Anatomical Region Laterality Modality Spine, L-spine Radiographic Susie ging 04/20/2025 1:40 PM EDT Narrative 04/20/2025 3:27 PM EDT [address] [address] XRay Report Signed Patient: Shreya Pulliam MR#: [id number] : 1980 Acct:[id number] Age/Sex: 44 / F ADM Date: 04/20/25 Loc: HO.HHCX Attending Dr: Jaqueline Vidales MD Ordering Physician: Jaqueline Vidales MD Date of Service: 04/20/25 Procedure(s): XR lumbar spine 2-3V Accession Number(s): [id number] cc: Jaqueline Vidales MD; Sabi Briceño MD EXAMINATION: XR LUMBOSACRAL SPINE CLINICAL INFORMATION: chronic low back pain COMPARISON: None available. TECHNIQUE: Three views of the lumbosacral spine. FINDINGS: There are 5 nonrib-bearing lumbar segments. Vertebral body height and alignment is preserved. L4-5 demonstrates mild disc space narrowing and small marginal osteophyte anteriorly. XR/XR lumbar spine 2-3V IMPRESSION: L4-5 demonstrates mild degenerative disc disease. Electronically signed by: Leonel Cavazos MD 04/20/2025 03:24 PM EDT RP Dictated By: Leonel Cavazos MD Signed By: <Electronically signed by Leonel Cavazos MD in OV> 04/20/25 1524 DD/ 1340 TD/TT: 04/20/25 1400 Commercial Escrow Assistant: Procedure Note Donotuseinterpreter, Image - 04/20/[address] [address] XRay Report Signed Patient: Shreya PulliamMR#: [id number] : 1980Acct:[id number] Age/Sex: 44 / FADM Date: 04/20/25 Loc: HO.HHCX Attending Dr: Jaqueline Vidales MD Ordering Physician: Jaqueline Vidales MD Date of Service: 04/20/25 Procedure(s): XR lumbar spine 2-3V Accession Number(s): [id number] cc: Jaqueline Vidales MD; Sabi Briceño MD EXAMINATION: XR LUMBOSACRAL SPINE CLINICAL INFORMATION: chronic low back pain COMPARISON: None available. TECHNIQUE: Three views of the lumbosacral spine. FINDINGS: There are 5 nonrib-bearing lumbar segments. Vertebral body height and alignment is preserved. L4-5 demonstrates mild disc space narrowing and small marginal osteophyte anteriorly. XR/XR lumbar spine 2-3V IMPRESSION: L4-5 demonstrates mild degenerative disc disease. Electronically signed by: Leonel Cavazos MD 04/20/2025 03:24 PM EDT RP Dictated By: Leonel Cavazos MD Signed By: <Electronically signed by Leonel Cavazos MD in OV> 04/20/25 1524 DD/ 1340 TD/TT: 04/20/25 1400 Commercial Escrow Assistant: Jaqueline Vidales MD IMG XR PROCEDURES Edited R esult - Final * BI Mammogram Screening Tomosynthesis Bilateral (12/12/2024 3:45 PM EDT) Anatomical Region Laterality Modality Breast Bilateral Mammography 12/12/2024 3:45 PM EDT Narrative 12/19/2024 3:31 PM EDT [facility] [place] [address] Mammography Report Signed Patient: Shreya Pulliam MR#: [id number] : 1980 Acct:[id number] Age/Sex: 44 / F ADM Date: 12/12/24 Loc: HO.MAMMO Attending Dr: Ashlee Hills MD Ordering Physician: Ashlee Hills Results: 1Negative Date of Service: 12/12/24 Follow Up: 1 Year From Orig ina Mammogram Procedure(s): MM tomosynthesis screening BI Accession Number(s): [id number] cc: Ashlee Hills; Sabi Briceño MD EXAMINATION: MM SCREENING DIGITAL BREAST TOMOSYNTHESIS, BILATERAL CLINICAL INFORMATION: Screening. Asymptomatic. COMPARISON: Mammography: Comparison is made with available priors TECHNIQUE: Digital breast mammography with tomosynthesis is performed in both the craniocaudal and mediolateral oblique views along with computer-aided detection (CAD). FINDINGS: The breasts are heterogeneously dense, which may obscure small masses (ACR BI-RADS breast composition Category c). There are no significant masses, abnormal calcifications, or other abnormalities. MM/MM tomosynthesis screening BI IMPRESSION: No mammographic evidence of malignancy. ASSESSMENT: BI-RADS BI-RADS 1 - Negative RECOMMENDATION: Routine annual mammography screening. 1 year F/U This examination should not preclude the clinical evaluation of a suspicious palpable abnormality. This patient's information was entered into a reminder system with a target due date for their next mammogram. Electronically signed by: Natalie Uribe DO 12/19/2024 03:28 PM EDT Dictated By: Natalie Uribe DO Signed By: <Electronically signed by Natalie Uribe DO in OV> 12/19/24 1528 DD/ 1545 TD/TT: 12/12/24 1603 Commercial Escrow Assistant: Procedure Note Donotuseinterpreter, Image - 12/19/2024 [facility] [address] [place] [address] Mammography Report Signed Patient: Shreya PulliamMR#: [id number] : 1980Acct:[id number] Age/Sex: 44 / FADM Date: 12/12/24 [facility]: Ashlee Hills MD Ordering Physician: Zena Hillsults: 1Negative Date of Service: 12/12/24Follow Up: 1 Year From Orig inal Mammogram Procedure(s): MM tomosynthesis screening BI Accession Number(s): [id number] cc: Ashlee Hills; Sabi Briceño MD EXAMINATION: MM SCREENING DIGITAL BREAST TOMOSYNTHESIS, BILATERAL CLINICAL INFORMATION: Screening. Asymptomatic. COMPARISON: Mammography: Comparison is made with available priors TECHNIQUE: Digital breast mammography with tomosynthesis is performed in both the craniocaudal and mediolateral oblique views along with computer-aided detection (CAD). FINDINGS: The breasts are heterogeneously dense, which may obscure small masses (ACR BI-RADS breast composition Category c). There are no significant masses, abnormal calcifications, or other abnormalities. MM/MM tomosynthesis screening BI IMPRESSION: No mammographic evidence of malignancy. ASSESSMENT: BI-RADS BI-RADS 1 - Negative RECOMMENDATION: Routine annual mammography screening. 1 year F/U This examination should not preclude the clinical evaluation of a suspicious palpable abnormality. This patient's information was entered into a reminder system with a target due date for their next mammogram. Electronically signed by: Natalie Uribe DO 12/19/2024 03:28 PM EDT Dictated By: Natalie Uribe DO Signed By: <Electronically signed by Natalie Uribe DO in OV> 12/19/24 1528 DD/ 1545 TD/TT: 12/12/24 1603 Commercial Escrow Assistant: Ashlee Hills MD IMG BI PROCEDURES Final Result * Hepatitis C Antibody with Reflex to HCV, RNA, Quantitative, Real-Time PCR (11/07/2022 11:44 AM EST) Hepatitis C Antibody NON-REACT RUPINDER NON-REACT RUPINDER [facility] Index 0.04 <1.00 [facility] Comment: HCV antibody was non-reactive. There is no laboratory evidence of HCV infection. In most cases, no further action is required. However, if recent HCV exposure is suspected, a test for HCV RNA (test code 04909) is suggested. For additional information please refer to http://education.[employer]/faq/MNW89a3 (This link is being provided for informational/ educational purposes only.) Blood Venous blood specimen / Unknown 11/07/2022 11:44 AM EST 11/07/2022 11:45 AM EST Narrative [facility] - 11/08/2022 7:04 PM EST FASTING:YES FASTING: YES Dorothea Clifford IT ACCOUNT MANAGER LAB BLOOD ORDERABLES Final Result [facility] [address], [place] [address] [facility] [place] [facility] [address] [facility], ([address]) [place] [address] * HIV-1/2 Antigen and Antibodies, Fourth Generation, with Reflexes (11/07/2022 11:44 AM EST) HIV Antigen/Antibody, 4th Generation NON-REAC TIVE NON-REAC TIVE [facility] [place] [facility] Comment: HIV-1 antigen and HIV-1/HIV-2 antibodies were not detected. There is no laboratory evidence of HIV infection. PLEASE NOTE: This information has been disclosed to you from records whose confidentiality may be protected by state law. If your state requires such protection, then the state law prohibits you from making any further disclosure of the information without the specific written consent of the person to whom it pertains, or as otherwise permitted by law. A general authorization for the release of medical or other information is NOT sufficient for this purpose. For additional information please refer to http://education.[facility] [facility]/faq/RTG555 (This link is being provided for informational/ educational purposes only.) The performance of this assay has not been clinically validated in patients less than 2 years old. Blood Venous blood specimen / Unknown 11/07/2022 11:44 AM EST 11/07/2022 11:45 AM EST Narrative [facility] - 11/08/2022 7:04 PM EST FASTING:YES FASTING: YES Dorothea Clifford [facility] LAB BLOOD ORDERABLES Final Result [address], [place] [address] [facility] [place] [facility] [address] [facility], ([address]) [place] [address] * (ABNORMAL) Lipid Panel, Standard (11/07/2022 11:44 AM EST) Cholesterol, Total 214(H) <200 mg/dL [facility] [place] [facility] HDL Cholesterol 73 > OR = 50 mg/dL [facility] [place] [facility] Triglycerides 119 <150 mg/dL [facility] [place] [facility] LDL Cholesterol 118(H) mg/dL (calc) [facility] [place] [facility] Comment: Reference range: <100 Desirable range <100 mg/dL for primary prevention; <70 mg/dL for patients with CHD or diabetic patients with > or = 2 CHD risk factors. LDL-C is now calculated using the Balwinder calculation, which is a validated novel method providing better accuracy than the Friedewald equation in the estimation of LDL-C. Jerry MCCRACKEN et al. KIYA. 2013;310(19): 1158-1999 (http://education.[employer]/faq/XQQ835) Chol/HDLC Ratio 2.9 <5.0 (calc) [facility] [place] [facility] Non-HDL Cholesterol 141(H) <130 mg/dL (calc) [facility] [place] [facility] Comment: For patients with diabetes plus 1 major ASCVD risk factor, treating to a non-HDL-C goal of <100 mg/dL (LDL-C of <70 mg/dL) is considered a therapeutic option. Blood Venous blood specimen / Unknown 11/07/2022 11:44 AM EST 11/07/2022 11:45 AM EST Narrative [facility] - 11/08/2022 7:04 PM EST FASTING:YES FASTING: YES us Dorothea Clifford IT ACCOUNT MANAGER LAB BLOOD ORDERABLES Final Result [address], [place] [address] [facility] [place] [facility] [address] [place] [address], ([address]) [place] [address] * THINPREP PAP (06/11/2021 12:00 AM EDT) Clinical Information: None given [facility] COMMENT SEE COMMENT [facility] Comment: EXPLANATORY NOTE: The Pap is a screening test for cervical cancer. It is not a diagnostic test and is subject to false negative and false positive results. It is most reliable when a satisfactory sample, regularly obtained, is submitted with relevant clinical findings and history, and when the Pap result is evaluated along with historic and current clinical information. Railroad Cook : SEE COMMENT [facility] Comment: RXB, CT(ASCP) CT screening location: [place] [address] Interpretation/R esult: Negative for intraepithelial lesion or malignancy. [facility] LMP: NONE GIVEN [facility] Prev. BX: NONE GIVEN [facility] Prev. PAP: NONE GIVEN [facility] SOURCE: None given [facility] Statement Of Adequacy: SEE COMMENT [facility] Comment: Satisfactory for evaluation. Endocervical/transformation zone component present. Age and/or menstrual status not provided 06/11/2021 Emi Monteiro NP LAB PATHOLOGY ORDERABLES Final Result Performing Organization Address [facility] de Phone Number [facility] [address] * HPV mRNA E6/E7 (06/11/2021 12:00 AM EDT) HPV nRNA E6/E7 Not Detected Not Detected [facility] Comment: Methodology: Spray Gun Repairer Helper-Mediated Amplification This assay detects E6/E7 viral messenger RNA (mRNA) from 14 high-risk HPV types (16,18,31,33,35,39,45,51,52,56,58,59,66,68). The analytical performance characteristics of this assay have been determined by [facility]. The modifications have not been cleared or approved by the FDA. This assay has been validated pursuant to the CLIA regulations and is used for clinical purposes. For additional information, please refer to http://education.[facility]/faq/GGQ523g0 (This link if provided for information/ educational purposes only.) 06/11/2021 Emi Monteiro NP LAB BLOOD ORDERABLES Final Resu lt Performing Organization Address [facility] de Phone Number [facility] [address] from Last 3 Months or Most Recently Relevant to Health Maintenance Insurance [employer] Care Teams Exhaust Emissions Inspector Relationship Specialty Start Date End Date Sabi Briceño MD [address] [place] [id number] PCP - General Internal Medicine 07/07/23
--- OUTSIDE RECORDS SUMMARY | 2025-06-14 12:18 | XMS_ITS | Encounter Summary ---
Author Organization [employer] Address [address] [place] [address] Care Team Providers Care Farmworker General Name Role Phone Sabi Briceño MD Primary Care Pro vider Reason for Visit * Reason Onset Date Comments Med Refill 06/14/2025 Encounter Details Date Type Department Care Team ([facility] st Contact Info) Description 06/14/2025 Telephone [facility] [address] [place] [address] Sabi Briceño MD 230 [place] [address] Med Refill Social History Tobacco Use Types Packs/Day Years [...] encounter Miscellaneous Notes * Telephone Encounter - Martina Clinton RN - 06/14/2025 11:16 AM EDT Telephone call placed to pt regarding below message. Informed that she should have refills left on lidocaine patches, zyrtec, and vitamin D and amlodipine shouldn't be out for another month. Advised to please contact her pharmacy first going forward. * Telephone Encounter - Nikki Nicole - 06/14/2025 10:08 AM EDT Patient walked in requesting med refill: Zyrtec 10 MG Vitamin D-3 25 MCG Amlodipine 5 MG Lidocaine 5% patch documented in this encounter Plan of Treatment Upcoming Encounters Date Type Department Care Team (Late st Contact Info) Description 06/29/2025 2:15 PM EDT Office Visit [facility] [address] [place] [id number] Sabi Briceño MD [address] [place] [phone] documented as of this encounter Visit Diagnoses Not on filedocumented in this encounter Additional Health Concerns Assessment Noted Time PHQ-9 Depression Total Score: 0 01/19/20 25 9:45 AM EDT documented as of this encounter Care Teams Farmworker General Relationship Specialty Start Date End Date Sabi Briceño MD [address] [place] [address] [phone] PCP - General Internal Medicine 07/07/23 documented as of this encounter
--- OUTSIDE RECORDS SUMMARY | 2025-06-14 12:18 | XMS_ITS | Encounter Summary ---
Author Organization [employer] Address [address] [facility] [address] [place] [address] Care Team Providers Care Bill Distributor Name Role Phone Sabi Briceño MD Primary Care Pro vider Encounter Details Date Type Department Care Team ([facility] st Contact Info) Description 06/14/2025 Orders Only [facility] 230 [place] [address] Martina Clinton, RN 230 [place] [address] Screening for tuberculosis Social History Tobacco Use Types Packs/Day Years [...] the past 12 months, has t he [employer], gas, oil or water [employer] threatened to shut off services in your [...] as of this encounter Progress Notes * Martina Clinton RN - 06/14/2025 9:59 AM EDT Pt walked into green team lobby requesting tspot for work. Orders placed. Pt will got to the lab now. documented in this encounter Plan of Treatment Upcoming Encounters Date Type Department Care Team (Late st Contact Info) Description 06/29/2025 2:15 PM EDT Office Visit [facility] 230 [place] [address] Sabi Briceño MD 230 [place] [address] Scheduled Orders Name Type Priority Associated Diagnoses Orde r Schedule T-SPOT .TB Lab Routine Screening for tuberculosis Expected: 06/14/2025 (Approximate), Expires: 06/14/2026 documented as of this encounter Visit Diagnoses Diagnosis Screening for tuberculosis Screening examination for pulmonary tuberculosis documented in this encounter Additional Health Concerns Assessment Noted Time PHQ-9 Depression Total Score: 0 01/19/20 25 9:45 AM EDT documented as of this encounter Care Teams Bill Distributor Relationship Specialty Start Date End Date Sabi Briceño MD [address] [place] [id number] PCP - General Internal Medicine 07/07/23 documented as of this encounter
--- OUTSIDE RECORDS SUMMARY | 2025-06-14 12:18 | XMS_ITS | Encounter Summary ---
Author Organization [employer] Address [address] 7[address] [place] [address] Care Team Providers Care Concrete Grinder Operator Name Role Phone Sabi Briceño MD Primary Care Pro vider Encounter Details Date Type Department Care Team (Late st Contact Info) Description 12/29/2024 Orders Only [facility] 230 [place] [address] Ashlee Hills MD 230 [place] [address] Social History Tobacco Use Types Packs/Day Years [...] Description 06/29/2025 2:15 PM EDT Office Visit [facility] [address] [place], [place] [phone] Sabi Briceño MD 230 [place] [address] documented as of this encounter Visit Diagnoses Not on filedocumented in this encounter Additional Health Concerns Assessment Noted Time PHQ-9 Depression Total Score: 13 024 1:31 PM EDT documented as of this encounter Care Teams Concrete Grinder Operator Relationship Specialty Start Date End Date Sabi Briceño MD [address] [place] [phone] PCP - General Internal Medicine 07/07/23 documented as of this encounter
--- OUTSIDE RECORDS SUMMARY | 2025-06-14 12:18 | XMS_ITS | Encounter Summary ---
Author Organization [employer] Address [address] 7[address] [place] [address] Care Team Providers Care Roll Hauler Name Role Phone Sabi Briceño MD Primary Care Pro vider Encounter Details Date Type Department Care Team (Latest Contact Info) Description 06/09/2025 Outside Procedure [facility] [address] [place] [address] Roberto, Kayy, OD [address] [place] [address] Presbyopia (Primary Dx) Social History Tobacco Use Types Packs/Day Years [...] t he electric, gas, oil or water [email or web address] threatened to shut off services in your [...] as of this encounter Progress Notes * Kayy Mejia OD - 06/09/2025 11:41 AM EDT MH glasses were dispensed, 2 of 2. documented in this encounter Plan of Treatment Upcoming Encounters Date Type Department Care Team ([facility] st Contact Info) Description 06/29/2025 2:15 PM EDT Office Visit [facility] 230 [place] [address] Sabi Briceño MD 230 [place], [place] [phone] documented as of this encounter Visit Diagnoses Diagnosis Presbyopia- Primary documented in this encounter Additional Health Concerns Assessment Noted Time PHQ-9 Depression Total Score: 0 01/19/20 25 9:45 AM EDT documented as of this encounter Care Teams Roll Hauler Relationship Specialty Start Date End Date Sabi Briceño MD [address] [place] [address] PCP - General Internal Medicine 07/07/23 documented as of this encounter
--- OUTSIDE RECORDS SUMMARY | 2025-06-14 12:18 | XMS_ITS | Encounter Summary ---
Author Organization [employer] Address [address] [place] [address] Care Team Providers Care Packaging Assembler Name Role Phone Sabi Briceño MD Primary Care Pro vider Reason for Visit * Reason Onset Date Comments New Med Request 02/09/2025 Encounter Details Date Type Department Care Team ([facility] st Contact Info) Description 02/09/2025 Telephone [facility] 230 [place] [address] Sabi Briceño MD 230 [place] [address] New Med Request Social History Tobacco Use Types Packs/Day Years [...] Telephone Encounter - Emelia Ayoub RN - 02/09/2025 4:18 PM EDT Telephone call to pt via S site interpreter Fitz #[id number]. Pt reports seasonal allergies to pollen, describes current itchy eyes and runny nose, states that she gets this every year, denies having takenany OTC meds for allergies. Pt has 1 year supply of Zyrtec on med list, advised her of this howevershe reports never having picked this up. Explained this is allergy medication, pt now aware and plans to cigar packer and picker from [facility]. She asked about any other allergy medications, advised her can send message to PCP however if she feels symptoms are bad she is advised to go to [facility]. Pt verbalized understanding, no further questions. * Telephone Encounter - Mary Padilla - 02/09/2025 3:10 PM EDT Tc from pt requesting medications for allergies due to pollen pt denied triage. Please return call [phone] documented in this encounter Plan of Treatment Upcoming Encounters Date Type Department Care Team (Late st Contact Info) Description 06/29/2025 2:15 PM EDT Office Visit [facility] [address] [place] [address] [phone] Sabi Briceño MD [address] [place] [phone] documented as of this encounter Visit Diagnoses Not on filedocumented in this encounter Additional Health Concerns Assessment Noted Time PHQ-9 Depression Total Score: 0 01/19/20 25 9:45 AM EDT documented as of this encounter Care Teams Packaging Assembler Relationship Specialty Start Date End Date Sabi Briceño MD [address] [place] [phone] PCP - General Internal Medicine 07/07/23 documented as of this encounter
[2025-06-14 13:56] LABS: Alanine Aminotransferase 13 U/L (0-31); Albumin Level 4.4 g/dL (3.5-5.0); Alkaline Phosphatase 67 U/L (39-117); Anion Gap 11 (12-20); Aspartate Amino Transferase 22 U/L (5-31); Blood Urea Nitrogen 12 mg/dL (9-16); Calcium 9.3 mg/dL (8.4-10.2); Carbon Dioxide 31 mmol/L (22-29); Chloride 103 mmol/L (96-108); Cholesterol 233 mg/dL (<200); Estimated Glomerular Filt Rate > 60; HDL Cholesterol 78 mg/dL (>40); Iron 64 mcg/dL (30-160); Percent Iron Saturation 21 % (15-50); Potassium 4.0 mmol/L (3.3-5.1); Sodium 141 mmol/L (135-145); Total Iron Binding Capacity 307 mcg/dL (228-428); Total Protein 7.9 g/dL (6.5-8.0); Triglycerides 112 mg/dL (<150); Unsaturated Iron Binding 243 ug/dL
[2025-06-14 14:25] LABS: Ferritin 27 ng/mL (10-250)
[2025-06-15 04:49] LABS: HBS Num1 795.98 mIU/mL (0-7.99); HBc Num1 0.17 S/CO (0.00-0.79); HBsAGNum1 0.43 S/CO (0.00-0.99); Hepatitis B Surface Antigen Negative (Negative); ~Hepatitis B Surface Antibody REACTIVE (Nonreactive)
[2025-06-15 06:53] LABS: Rubeola IgG (Measles) 54.90 AU/mL
[2025-06-19 22:48] LABS: TS Negative Control Passed; TS Panel A 0; TS Panel B 0; TS Positive Control Passed; TSpotTB Negative (Negative)
== END 2025-06-14 10:09 | disposition home or self-care (01) ==
LOC: HO.HHCL 10:08
PROVIDERS: PCP Student in an Organized Health Care Education/Training Program; Visit Provider Student in an Organized Health Care Education/Training Program
DX: Z00.00 Encounter for general adult medical examination without abnormal findings (principal); Z11.1 Encounter for screening for respiratory tuberculosis; Z11.59 Encounter for screening for other viral diseases
CPT/HCPCS: 36415; 80053; 80061; 82728; 83540; 85027; 86481; 86704; 86706; 86735; 86762; 86765; 87340

== ENCOUNTER 2025-07-13 08:42 | Outpatient (AMB) | payer MEDICAID, SELFPAY ==
--- NOTE | 2025-07-13 08:43 | MHC.OFFVIS ---
Vital Signs 07/13/25 08:48 Height 5 ft 6 in Weight 188 lb BMI 30.3 BP 146/78 H Blood Pressure Location Rt brachial Position Sitting Pulse 94 Pulse Source Pulse Oximeter Pulse Oximetry (%) 98 Oxygen Delivery Method Room Air Intake Visit Reasons: re-eval b4 colo Intake Note: Est pt for mgmt of constipation. Review upcoming colo. CC: Pt denies any GI changes or new sx since last visit. Ski Technician Required: No Accompanied by: Self / Same As Patient Allergies No Known Allergies Allergy (Verified 07/13/25 08:43) HPI HPI re-eval b4 colo: Details: LAST VISIT: Screen for colon cancer GERD (gastroesophageal reflux disease) Constipation Plan Patient denies any cardiac or respiratory symptoms.? Patient reports constipation. Will send her script for Dulcolax. Increase fluid intake and activity to promote better bowel motility. Patient reports acid reflux. Will send her script for omeprazole. Patient was encouraged to avoid dietary triggers and late night snacking. Staying upright for minimum 3 hours after meals discussed with patient. Patient will be sent for upper endoscopy to rule out gastritis, esophagitis, duodenitis, Barretts, H pylori. Denies any issues with anesthesia in the past.? Denies any history of sleep apnea.? No history infectious diseases in the past or present.? Not on any anticoagulation therapy.? No family or personal history of colon cancer or polyps.? Patient denies melena, hematochezia, unintentional weight loss or ribbon like stools.? Discussed at length the pre-procedure,? prep, diet & medications as well as what to expect prior, during and after the procedure.?? Stressed the importance of good bowel prep.? Recommended the use of Vaseline or Calmoseptine OTC & baby wipes with bowel movements to promote comfort.? ?Patient verbalizes understanding and agrees to plan of care.? She was given the opportunity to ask questions and all questions answered.? We will see her after the procedure.? New bisacodyl (Dulcolax (bisacodyl)) 10 mg (2 x 5 mg) PO BEDTIME 180 tabs 4RF polyethylene glycol 3350 (Miralax) As directed by gastroenterology department at [facility] 238 grams PO ONCE 238 grams 0RF Z12.11 omeprazole 20 mg PO DAILY 30 caps 3RF K21.9 TODAY'S VISIT Patient is here today for follow-up. Patient reports that she thought that she will be having the procedure today. Patient prepped last night. Patient reports that she has been doing better since started taking Dulcolax. Patient reports that she is able to move her bowels every day. Denies melena, hematochezia, unintentional weight loss or ribbon like stools. Patient reports that omeprazole has been helpful with reflux. Patient has not been scheduled for endoscopy or colonoscopy yet. Patient reports that she has prep at home. Denies any cardiac or respiratory symptoms. Patient denies dyspepsia, dysphagia or odynophagia. Denies any issues with anesthesia in the past. [facility] Medical History HTN (hypertension) Acute anxiety Surgical History H/O section Family History Brother Eye cancer Social History Alcohol intake: never Patient Tobacco Use Status: Never used Tobacco Review of Systems Const Denies weight gain and Denies weight loss ENT Reports no additional complaints, Denies dysphagia and Denies odynophagia Card Reports no additional complaints Resp Reports no additional complaints GI Denies abdominal pain, Denies belching, Denies melena, Denies bloating, Denies change in bowel habits, Reports constipation, Denies dysphagia, Denies excessive flatus, Denies dyspepsia, Reports heartburn, Denies diarrhea, Denies loose stools, Denies nausea, Denies odynophagia and Denies vomiting Musc Reports no additional complaints Neuro Reports no additional complaints Psych Reports no additional complaints Endo Reports no additional complaints Physical Exam Vital Signs: Last Vital Signs Pulse 94 07/13/25 08:48 BP 146/78 H 07/13/25 08:48 Pulse Ox 98 07/13/25 08:48 Oxygen Delivery Method Room Air 07/13/25 08:48 BMI result Body Mass Index 30.3 Const General: healthy appearing, no acute distress and well developed Nutritional Appearance: well nourished Orientation/consciousness: patient oriented x3 Resp Effort & Inspection: normal respiratory effort, able to speak in complete sentences, no tracheal deviation and symmetric chest movement Auscultation: clear to auscultation bilaterally Cardio Rate: regular rate GI Inspection: Yes normal to inspection and No distended Palpation (GI): Soft to palpation, not firm, nontender and No hepatosplenomegaly present Auscultation: normal bowel sounds General: Yes no CVA tenderness Back/Spine/Pelvis Back: no CVA tenderness Skin General skin exam: elasticity normal, turgor normal and dry skin Neuro General: patient oriented x3 Psych Appearance: grossly normal Mental Status: mental status grossly normal Assessment & Plan Assessment & Plan (1) Encounter for screening for malignant neoplasm of colon: Code(s): Z12.11 - Encounter for screening for malignant neoplasm of colon (2) Gastroesophageal reflux disease: Code(s): K21.9 - Gastro-esophageal reflux disease without esophagitis Qualifiers: Esophagitis presence: esophagitis presence not specified Qualified Code(s): K21.9 - Gastro-esophageal reflux disease without esophagitis (3) Constipation: Code(s): K59.00 - Constipation, unspecified Qualifiers: Constipation type: slow transit constipation Qualified Code(s): K59.01 - Slow transit constipation Plan Will reorder the prep again. Patient will continue taking Dulcolax daily. Continue PPI therapy. Message sent to surgical schedulers to call patient and book procedure. What to expect before during and after procedure discussed with patient. Stressed the importance of good bowel prep and clear liquid diet day before procedure. Patient will be seen after the procedure. She will call us if she will have any GI concerning symptoms. She is agreeable to this plan and verbalizes understanding of instructions. She was given the opportunity to ask questions and all questions answered. Thank you for allowing me to participate in her care Medications: Refilled bisacodyl (Dulcolax (bisacodyl)) 10 mg (2 x 5 mg) PO BEDTIME 180 tabs 4RF omeprazole 20 mg PO DAILY 30 caps 3RF K21.9 - Gastro-esophageal reflux disease without esophagitis polyethylene glycol 3350 (Miralax) As directed by gastroenterology department at [facility] 238 grams PO ONCE 238 grams 0RF Z12.11 - Encounter for screening for malignant neoplasm of colon Coding Level of Care Code Est Pt Level 3 (48029) Diagnoses Encounter for screening for malignant neoplasm of colon Z12.11 Gastroesophageal reflux disease, unspecified whether esophagitis present K21.9 Esophagitis presence: esophagitis presence not specified Slow transit constipation K59.01 Constipation type: slow transit constipation Time Spent (min) 30 Comment 20 minutes spent with patient and additional 10 minutes spent reviewing her records
[2025-07-13 08:48] VITALS: BP 146/78; PULSE 94; O2SAT 98; BMI 30.3
== END 2025-07-13 09:03 | disposition home or self-care (01) ==
LOC: HO.HGI 08:42
PROVIDERS: PCP Student in an Organized Health Care Education/Training Program; Visit Provider Nurse Practitioner Family
DX: Z01.818 Encounter for other preprocedural examination (principal); Z12.11 Encounter for screening for malignant neoplasm of colon; K59.01 Slow transit constipation; K21.9 Gastro-esophageal reflux disease without esophagitis
CPT/HCPCS: 99213

== ENCOUNTER → 2025-07-13 08:42 | Outpatient (BNVA) | payer MEDICAID, SELFPAY | PROVIDERS: PCP Student in an Organized Health Care Education/Training Program; Visit Provider Nurse Practitioner Family | DX: Z01.818 Encounter for other preprocedural examination (principal); Z12.11 Encounter for screening for malignant neoplasm of colon; K21.9 Gastro-esophageal reflux disease without esophagitis; K59.01 Slow transit constipation | CPT/HCPCS: 99212 ==

== ENCOUNTER → 2025-07-20 16:36 | Outpatient (BNV) | payer MEDICAID, SELFPAY | PROVIDERS: PCP Student in an Organized Health Care Education/Training Program; Visit Provider Radiology Diagnostic Radiology | DX: M47.817 Spondylosis without myelopathy or radiculopathy, lumbosacral region (principal); E88.2 Lipomatosis, not elsewhere classified | CPT/HCPCS: 72148 ==

== ENCOUNTER 2025-07-20 16:37 | Outpatient (REF) | payer MEDICAID, SELFPAY ==
--- NOTE | ~2025-07-20 | MR_ITS ---
EXAMINATION: MR LUMBAR SPINE WITHOUT CONTRAST CLINICAL INFORMATION: Chronic low back pain with radiculopathy. COMPARISON: None available. TECHNIQUE: MRI of the lumbar spine was obtained using routine sequences without contrast. FINDINGS: Last rib-bearing vertebra labeled T12. No bone marrow STIR signal abnormality. Decreased intervertebral disc height and signal at L4-5 and L5-S1. Small Schmorl nodes in the endplates of T11 and T12. Focal hyperintense T2 signal in the right posterior intervertebral disc L5-S1 likely annular fissure. Alignment is normal. Conus medullaris ends at pedicle of L2 with normal signal. T12-L1: No central spinal canal or neuroforamina stenosis. No herniated disc. L1-2: No herniated disc. No central spinal canal or neuroforamina stenosis. L2-3: Broad-based disc bulging. Facet joint hypertrophy. No compression upon neural elements. L3-4: Broad-based disc bulging. Facet joint hypertrophy. No compression upon neural elements. L4-5: Broad-based disc bulging. Facet joint ligamentum flavum hypertrophy. Reduced AP diameter of the thecal sac and neuroforamina. L5-S1: Mild prominent epidural fat in a circumferential fashion. Broad-based disc bulging. Facet joint hypertrophy. Reduced AP diameter of the thecal sac. No prevertebral compartment hematoma, mass or fluid collection. MR/MR lumbar spine wo con IMPRESSION: Multilevel spondylosis from L3-4 to L5-S1 pronounced at L4-5 and L5-S1 without compression upon neural elements. Mild epidural lipomatosis at L5-S1. Electronically signed by: Ryan Harding MD 07/21/2025 07:04 AM EDT
--- OUTSIDE RECORDS SUMMARY | 2025-07-20 19:34 | XMS_ITS | Encounter Summary ---
Author Organization [employer] Address [address] [place] [address] Care Team Providers Care Inspector Canned Food Reconditioning Name Role Phone Sabi Briceño MD Primary Care Pro vider Reason for Visit * Reason Onset Date Comments New Med Request 02/09/2025 Encounter Details Date Type Department Care Team ([facility] st Contact Info) Description 02/09/2025 Telephone [facility] [address] [place] [address] Sabi Briceño MD [address] [place] [address] New Med Request Social History Tobacco Use [...] EDT Telephone call to pt via S manager combination Fitz #[id number]. Pt reports seasonal allergies to pollen, describes current itchy eyes and runny nose, states that she gets this every year, denies having takenany OTC meds for allergies. Pt has 1 year supply of Zyrtec on med list, advised her of this howevershe reports never having picked this up. Explained this is allergy medication, pt now aware and plans to fruit picker machine operator from [facility]. She asked about any other allergy medications, advised her can send message to PCP however if she feels symptoms are bad she is advised to go to [facility]. Pt verbalized understanding, no further questions. * Telephone Encounter - Mary Padilla - 02/09/2025 3:10 PM EDT Tc from pt requesting medications for allergies due to pollen pt denied triage. Please return call [phone] documented in this encounter Plan of Treatment Upcoming Encounters Date Type Department Care Team (Late st Contact Info) Description 08/11/2025 1:30 PM EST Clinical Support [facility] [address] [place] [address] documented as of this encounter Visit Diagnoses Not on filedocumented in this encounter Additional Health Concerns Assessment Noted Time PHQ-9 Depression Total Score: 0 01/19/20 25 9:45 AM EDT documented as of this encounter Care Teams Inspector Canned Food Reconditioning Relationship Specialty Start Date End Date Sabi Briceño MD [address] [place] [address] PCP - General Internal Medicine 07/07/23 documented as of this encounter
--- OUTSIDE RECORDS SUMMARY | 2025-07-20 19:34 | XMS_ITS | Encounter Summary ---
Author Organization [employer] Address [address] [place] [address] 7 [place] [address] Care Team Providers Care Heel Turner Name Role Phone Sabi Briceño MD Primary Care Pro vider Encounter Details Date Type Department Care Team (Late st Contact Info) Description 06/14/2025 Results Follow-Up [facility] [address] [place] [address] Sabi Briceño MD [address] [place] [address] Iron And Total Iron Binding Capacity, Ferritin, CBC, Additional followed-up results: 2 Social History Tobacco Use Types Packs/Day Years [...] as of this encounter Miscellaneous Notes * Result Encounter Note - Sabi Crouch MD - 06/14/2025 9:29 PM EDT Please call patient to advise to come to already scheduled apt with me to go over abnormal labs Thanks documented in this encounter Plan of Treatment Upcoming Encounters Date Type Department Care Team (Late st Contact Info) Description 08/11/2025 1:30 PM EST Clinical Support [facility] [address] [place] [address] documented as of this encounter Visit Diagnoses Not on filedocumented in this encounter Additional Health Concerns Assessment Noted Time PHQ-9 Depression Total Score: 0 01/19/20 25 9:45 AM EDT documented as of this encounter Care Teams Heel Turner Relationship Specialty Start Date End Date Sabi Briceño MD [address] [place] [address] PCP - General Internal Medicine 07/07/23 documented as of this encounter
--- OUTSIDE RECORDS SUMMARY | 2025-07-20 19:34 | XMS_ITS | Encounter Summary ---
Author Organization [employer] Address [address] [place] [address] [place] [address] Care Team Providers Care Line Maintainer Section Name Role Phone Sabi Briceño MD Primary Care Pro vider Reason for Visit * Reason Onset Date Comments Appointment Request 06/22/2025 Encounter Details Date Type Department Care Team ([facility] st Contact Info) Description 06/22/2025 Telephone [facility] [address] [place] [address] Sabi Briceño MD [address] [place] [address] Appointment Request Social History Tobacco Use Types Packs/Day [...] encounter Miscellaneous Notes * Telephone Encounter - Andrew Montoya - 06/22/2025 4:45 PM EDT TC from pt wanting to schedule nutrition visit documented in this encounter Plan of Treatment Upcoming Encounters Date Type Department Care Team (Late st Contact Info) Description 08/11/2025 1:30 PM EST Clinical Support [facility] [address] [place] [address] documented as of this encounter Visit Diagnoses Not on filedocumented in this encounter Additional Health Concerns Assessment Noted Time PHQ-9 Depression Total Score: 0 01/19/20 25 9:45 AM EDT documented as of this encounter Care Teams Line Maintainer Section Relationship Specialty Start Date End Date Sabi Briceño MD [address] [place] [address] PCP - General Internal Medicine 07/07/23 documented as of this encounter
--- OUTSIDE RECORDS SUMMARY | 2025-07-20 19:34 | XMS_ITS | Clinical Summary ---
Author Organization [employer] Address [address] [place] [address] [address] [place] [address] Care Team Providers Care Automotive Painter Helper Name Role Phone Sabi Briceño MD Primary [...] directed by MD. 30 patch 2 Active Icosapent Ethyl (Vascepa) 1 g capsule Take 2 capsules (2 g) by mouth Once per day. 180 capsule 1 5 06/29/20 26 Active Active Problems Problem Noted Date Diagnosed Date HLD (hyperlipidemia) 07/02/2025 Health care maintenance 01/18/2025 Dysmenorrhea 01/18/2025 Obesity (BMI 30-39.9) 01/18/2025 Severe mixed bipolar I disor rachael with psychotic features (CMS/HCC) 11/25/2024 Anxiety in acute stress reaction 02/20/2024 Hypertension 02/20/2024 Fibromyalgia 10/21/2022 Carpal tunnel syndrome 10/21/2022 Neutropenia 10/21/2022 Vitamin D deficiency 10/21/2022 MDD (major depressive disord er), recurrent episode, moderate ([facility]/HCC) 09/14/2014 Migraine 09/07/2012 Lumbar spondylosis 05/28/2012 Overview [...] Encounters Date Type Department Care Team Description 06/29/2025 2:15 PM EDT Office Visit [facility] MEDICINE [address] [place] [phone] Sabi Briceño MD Lumbar radiculopathy (Primary Dx); Chronic low back pain with sciatica, sciatica laterality unspecified, unspecified back pain laterality; Primary hypertension; Obesity (BMI 30-39.9); Health care maintenance; 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 (CMS/HCC) (HCC); Fibromyalgia; Lumbar spondylosis; Hyperlipidemia, unspecified hyperlipidemia type 06/28/[address] [address] Sabi Briceño MD chart prep 06/22/[address] [address] Sabi Briceño MD Appointment Request 06/22/2025 Patient Outreach [facility] [address] [place] [address] Sabi Briceño MD Pre-visit Planning (SDOH unable to reach M ) [address] [address] Sabi Briceño MD pe summary 06/19/[address] [address] Sabi Briceño MD chart prep 06/19/2025 Telephone [facility] [address] [place] [phone] Jose M Ni[place], [place] 06/19/2025 Telephone [facility] [address] [place] [phone] Candi [place], [place] 06/14/2025 Results Follow-Up [address] [address] Sabi Briceño MD Iron And Total Iron Binding Capacity, Ferritin, CBC, Additional followed-up results: 2 06/14/[address] [address] Sabi Briceño MD Med Refill 06/14/2025 Orders Only [address] [address] Martina Clinton, RN Screening for tuberculosis 06/09/2025 Outside Procedure [facility] OPTOMETRY [address] [place] [phone] Kayy Mejia, OD Presbyopia (Primary Dx) 06/07/2025 10:00 AM EDT Office Visit [facility] OPTOMETRY [address] [place] [address] Kayy Mejia, OD Myopia of both eyes (Primary Dx) 05/16/2025 10:00 AM EDT Nutrition [facility] DIABETES/NUTRITION [address] [place] [phone] CzMar chadwick, RD Obesity (BMI 30-39.9) 05/16/2025 Travel 05/10/2025 Telephone [facility] MEDICINE [address] [place] [phone] Sabi Briceño MD Referral 05/05/2025 Orders Only [facility] MED[facility]INE [address] [place] [phone] Sabi Briceño MD Dysmenorrhea (Primary Dx); Menorrhagia with regular cycle 05/02/[address] [address] Sabi Briceño MD Call Back Request; Referral 05/01/[address] [address] Sabi Briceño MD oct. 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); Tortuous retinal veins; Crowded optic disc, bilateral; Presbyopia 04/27/2025 Travel 04/26/2025 Orders Only [facility] MEDICINE [address] [place] [phone] Sabi Briceño MD Chronic low back pain without sciatica, unspecified back pain laterality (Primary Dx) 04/26/2025 Telephone [facility] MEDICINE [address] [phone] Sabi Briceño MD Referral 04/20/2025 1:30 PM EDT Office Visit [facility] MEDICINE [address] [place] [phone] Sabi Briceño MD Health care maintenance (Primary Dx); Primary hypertension; Fibromyalgia; Obesity (BMI 30-39.9); Chronic low back pain without sciatica, unspecified back pain laterality; Lumbar spondylosis 04/20/2025 Results Follow-Up [facility] MED[facility] [address] [place] [phone] Sabi Briceño MD XR Lumbar Spine 2-3 [...] Access Q2 Not on file 06/30/2024 Comments No Intention Date Recorded No desire to become (finding) 0 11/25/2024 Sex and Gender Information Value Date Recorded Sex Assigned at Female 07/28/2022 10:20 AM EDT Legal Sex Female 10:20 AM EDT Gender Identity Female 07/28/2022 10:20 AM EDT Sexual Orientation Straight 07/28/2022 10 :20 AM EDT Last Filed Vital Signs Vital Sign Reading Time Taken Comments Blood Pressure 140/80 06/29/2025 2:27 PM EDT Pulse 94 06/29/2025 2:27 PM EDT Temperature 37.2 C (99 F) 06/29/2025 2:27 PM EDT Respiratory Rate 20 06/29/2025 2:27 PM EDT Oxygen Saturation 99% 06/29/2025 2:27 PM EDT Inhaled Oxygen Concentration - - Weight 88.1 kg (194 lb 3.2 oz) 06/29/2025 2:27 P M EDT Height 160 cm (5' 3 ) 06/29/2025 2:27 PM EDT Body Mass Index 34.4 06/29/2025 2:27 PM EDT Plan of Treatment Upcoming Encounters Date Type Department Care Team (Late st Contact Info) Description 08/11/2025 1:30 PM EST Clinical Support [facility] MEDICINE [address] [place] [phone] Health Maintenance Due Date Last Done Comments [...] 01/18/2025, 01/19/20 25 Disability Screening 01/18/2026 01/18/2025 Cervical Cancer Screening 06/11/2026 HPV/Cotest 06/11/2026 06/11/2021, 08/07/2017 Pap Smear 06/11/2026 06/11/2021 Tobacco Screening 06/29/2026 06/29/2025 Mammogram 12/12/2026 12/12/2024, 07/01/2021 Zoster Vaccines (1 of 2) 2029 DTaP/Tdap/Td Vaccines (6 - Td or Tdap) 11/17/2029 11/17/2019, 12/08/2017, 05/17/2014, Additional history exists Lipid Panel 06/14/2030 06/14/2025, 10/29, 05/15/2021 RSV Patients and Patients Aged 60 years [...] Procedure Name Priority Date/Time Associated Diagnosis Comments T-SPOT(R).TB Routine 06/14/2025 10:22 AM EDT Screening for tuberculosis MEASLES, MUMPS, AND RUBELLA (MMR) AB (IGG) PANEL, IMMUNE STATUS Routine 06/14/2025 10:22 AM EDT Health care maintenance LIPID PANEL, STANDARD Routine 06/14/2025 10:22 AM EDT Health care maintenance COMPREHENSIVE METABOLIC PANEL Routine 06/14/2025 10:22 AM EDT Health care maintenance HEPATITIS B SURFACE ANTIGEN, EIA Routine 06/14/2025 10:22 AM EDT Health care maintenance HEPATITIS B SURFACE ANTIBODY, QUALITATIVE Routine 06/14/2025 10:22 AM EDT Health care maintenance HEPATITIS B CORE AB TOTAL Routine 06/14/2025 10:22 AM EDT Health care maintenance CBC Routine 06/14/2025 10:22 AM EDT Health care maintenance FERRITIN Routine 06/14/2025 10:22 AM EDT Health care maintenance IRON AND TOTAL IRON BINDING CAPACITY Routine 06/14/2025 10:22 AM EDT Health care [...] Recently Relevant to Health Maintenance Results * T-SPOT??.TB (06/14/2025 10:22 AM EDT) T Spot TB Negative Negative [facility] Comment:A negative test resu lt does not exclude the possibilityof exposure to or infection with Mycobacteriumtuberculosis (M. tuberculosis). Patients with recentexposure to TB infected individuals exhibiting anegative T-SPOT.TB result should be considered forretesting within 6 weeks or if other relevant clinicalsymptoms indicate. Results from T-SPOT.TB testing mustbe used in conjunction with each individual'sepidemiological history, current medical status,and results of other diagnostic evaluations.The T-SPOT.TB test is qualitative and results arereported as positive, borderline, or negative, giventhat the test controls perform as expected. In linewith the Centers for Disease Control and Prevention's2010 recommendation to report quantitative measurementsalongside the qualitative result, the laboratoryprovides spot counts for informational purposes only.The T-SPOT.TB test should not be interpreted as aquantitative test. TS PANEL A 0 [facility] TS PANEL B 0 [facility] Negative Control Passed [facility] Positive Control Passed [facility] Comment:For additional infor erica, please refer tohttp://education.[employer]/faq/SQA273(This link is being provided for informational/educational purposes only.)THIS TEST WAS PERFORMED AT:[employer] [id number] [place] [address]GDDRPWMERNST ADAMS MD,PHD 06/14/2025 10:2 2 AM EDT 06/14/2025 11:14 AM EDT Sabi Crouch MD LAB BLOOD ORDERAB LES Final Result [facility] [address] [place] [phone] * Measles, Mumps, and Rubella (MMR) Antibodies??(IgG) Panel, Immune Status (06/14/2025 10:22 AM EDT) Mumps Virus IgG Antibody 60.00 AU/mL [facility] Comment:AU/mL Interpretation ------- <9.00 Not consistent with immunity9.00-10.99 Equivocal>10.99 Consistent with immunityThe presence of mumps IgG antibody suggests immunizationor past or current infection with mumps virus. Rubella IgG Antibody 5.63 Index [facility] Comment:Index Interpretation ----- <0.90 Not consistent with immunity 0.90-0.99 Equivocal > or = 1.00 Consistent with immunityThe presence of rubella IgG antibody suggestsimmunization or past or current infection withrubella virus.THIS TEST WAS PERFORMED AT:[employer] [place] [phone] GARCIA MD Rubeola IgG (Measles) 54.90 AU/mL [facility] Comment:AU/mL Interpretation ----- <13.50 Not consistent with muhswgsu67.50-16.49 Equivocal>16.49 Consistent with immunityThe presence of measles IgG suggests immunization orpast or current infection with measles virus.For additional information, please refer tohttp://education.[employer]ch/faq/ABD943(This link is being provided for informational/educational purposes only.) Blood Venous blood specimen / Unknown 06/14/2025 10:22 AM EDT 06/14/2025 11:14 AM EDT us Sabi Crouch MD LAB BLOOD ORDERAB LES Final Result [facility] [address] [place] [phone] * Iron And Total Iron Binding Capacity (06/14/2025 10:22 AM EDT) Iron 64 30 - 160 mcg/dL [facility] Total Iron Binding Capacity 307 228 - 428 mcg/dL [facility] Percent Iron Saturation 21 15 - 50 % [facility] Unsaturated Iron Binding 243 ug/dL [facility] Blood Venous blood specimen / Unknown 06/14/2025 10:22 AM EDT 06/14/2025 1:16 PM EDT us Sabi Crouch MD LAB BLOOD ORDERAB LES Final Result Performing Organization Address [facility]/ZIP Co de Phone Number [facility] [address] [place] [phone] * Hepatitis B surface antigen, EIA (06/14/2025 10:22 AM EDT) Hepatitis B Surface Ag Negative Negative [facility] Blood Venous blood specimen / Unknown 06/14/2025 10:22 AM EDT 06/14/2025 11:14 AM EDT us Sabi Crouch MD LAB BLOOD ORDERAB LES Final Result Performing Organization Address [facility] Co de Phone Number [facility] [address] [place] [phone] * Hepatitis B Core Antibody, Total (06/14/2025 10:22 AM EDT) Hepatitis B Core Antibody Nonreactive Nonreactive [facility] Blood Venous blood specimen / Unknown 06/14/2025 10:22 AM EDT 06/14/2025 11:14 AM EDT us Sabi Crouch MD LAB BLOOD ORDERAB LES Final Result Performing Organization Address [facility]/ZIP Co de Phone Number [facility] [address] [place] [phone] * Hepatitis B Surface Antibody, Qualitative (06/14/2025 10:22 AM EDT) ~Hepatitis B Surface Antibody REACTIVE Nonreactive [facility] Comment:REACTIVE: > 11.99 mI U/mL Blood Venous blood specimen / Unknown 06/14/2025 10:22 AM EDT 06/14/2025 11:14 AM EDT us Sabi Crouch MD LAB BLOOD ORDERAB LES Final Result [facility] [address] [place] [phone] * (ABNORMAL) CBC (06/14/2025 10:22 AM EDT) [facility] White Blood Count 3.7(L) 4.8 - 10.8 X10*3/uL [facility] Red Blood Count 4.47 4.20 - 5.50 X10*6/uL [facility] Hemoglobin 11.4(L) 12.0 - 16.0 g/dl [facility] Hematocrit 36.0(L) 37.0 - 47.0 % [facility] Mean Corpuscular Volume 80.5 80.0 - 98.0 fL [facility] Mean Corpuscular Hemoglobin 25.5(L) 27.0 - 33.0 pg [facility] Mean Corpuscular HGB Conc 31.7 31.0 - 35.0 g/dl [facility] Red Cell Distribution Width 14.9 11.0 - 16.0 % [facility] Platelet Count 257 160 - 400 X10*3/uL [facility] Mean Platelet Volume 11.4 9.4 - 12.3 fL [facility] NRBC Pct Auto 0.0 0.0 - 0.2 /100WBC [facility] NRBC Abs Auto 0.000 0.0 - 0.012 X10*3/uL [facility] Blood Venous blood specimen / Unknown 06/14/2025 10:22 AM EDT 06/14/2025 11:14 AM EDT us Sabi Crouch MD LAB BLOOD ORDERAB LES Final Result [facility] [address] [place] [phone] * Ferritin (06/14/2025 10:22 AM EDT) Ferritin 27 10 - 250 ng/mL [facility] Blood Venous blood specimen / Unknown 06/14/2025 10:22 AM EDT 06/14/2025 1:16 PM EDT us Sabi Crouch MD LAB BLOOD ORDERAB LES Final Result Performing Organization Address [facility]/ZIP Co de Phone Number [facility] [address] [place] [phone] * (ABNORMAL) Lipid Panel, Standard (06/14/2025 10:22 AM EDT) Triglycerides 112 <150 mg/dL [facility] Comment:Desirable Triglyceri de: less than 150 mg/dLBorderline High Triglyceride 150-199 mg/dLHigh Triglyceride: 200-499 mg/dLVery High Triglyceride: greater than or equal to 5OO mg/dL Cholesterol 233(H) <200 mg/dL [facility] Comment:Desirable Cholestero l: less than 200 mg/dLBorderline High Cholesterol: 200-239 mg/dLHigh Cholesterol: greater than 239 mg/dL LDL Cholesterol Calculated 133(H) <100 mg/dL [facility] Comment:Desirable LDL: less than 100 mg/dLNear Optimal/Above Optimal LDL: 110- 129 mg/dLBorderline High LDL: 130-159 mg/dLHigh LDL: 160-189 mg/dLVery High LDL: greater than or equal to 190 mg/dL HDL Cholesterol 78 >40 mg/dL [facility] Comment:Desirable HDL: great er than 40 mg/dL Note: This HDL assay may give artificially low results in patients with liver disease. Blood Venous blood specimen / Unknown 06/14/2025 10:22 AM EDT 06/14/2025 1:16 PM EDT us Sabi Crouch MD LAB BLOOD ORDERAB LES Final Result Performing Organization Address [facility]/ZIP Co de Phone Number [facility] [address] [place] [phone] * (ABNORMAL) Comprehensive Metabolic Panel (06/14/2025 10:22 AM EDT) Sodium 141 135 - 145 mmol/L [facility] Potassium 4.0 3.3 - 5.1 mmol/L [facility] Chloride 103 96 - 108 mmol/L [facility] Carbon Dioxide 31(H) 22 - 29 mmol/L [facility] Anion Gap 11(L) 12 - 20 [facility] Urea Nitrogen (BUN) 12 9 - 16 mg/dL [facility] Creatinine, Serum 0.82 0.5 - 1.4 mg/dL [facility] Estimated Glomerular Filt Rate >60 [facility] Comment:Chronic Kidney Disea se: Estimated GFR < 60 mL/min/1.40p8Qgejff Kidney Disease: Estimated GFR < 15 mL/min/1.73m2 Glucose 101 60 - 115 mg/dL [facility] Calcium 9.3 8.4 - 10.2 mg/dL [facility] Bilirubin, Total 0.4 0.0 - 1.0 mg/dL [facility] Aspartate Amino Transferase 22 5 - 31 U/L [facility] Alanine Aminotransferase 13 0 - 31 U/L [facility] Total Protein 7.9 6.5 - 8.0 g/dL [facility] Albumin Level 4.4 3.5 - 5.0 g/dL [facility] Alkaline Phosphatase 67 39 - 117 U/L [facility] Blood Venous blood specimen / Unknown 06/14/2025 10:22 AM EDT 06/14/2025 1:16 PM EDT us Sabi Crouch MD LAB BLOOD ORDERAB LES Final Result [facility] [address] [place] [phone] * Fundus Photos - OU - [...] PM EDT Narrative 04/20/2025 3:27 PM EDT [facility] [address] [place] [address] XRay Report Signed Patient: Shreya Pulliam MR#: [id number] : 1980 Acct:[id number] Age/Sex: 44 / F ADM Date: 04/20/25 Loc: HO.HHCX Attending Dr: Jaqueline Vidales MD Ordering Physician: Jaqueline Vidales MD Date of Service: 04/20/25 Procedure(s): XR lumbar spine 2-3V Accession Number(s): [id number] cc: Jaqueline Vidales MD; Sabi Briceño MD [...] 04/20/25 1524 DD/ 1340 TD/TT: 04/20/25 1400 Bed Spring Maker: Procedure Note Donotuseinterpreter, Image - 04/20/[address] [address] XRay Report Signed Patient: Shreya PulliamMR#: [id number] : 1980Acct:[id number] Age/Sex: 44 / FADM Date: 04/20/25 Loc: HO.HHCX Attending Dr: Jaqueline Vidales MD Ordering Physician: Jaqueline Vidales MD Date of Service: 04/20/25 Procedure(s): XR lumbar spine 2-3V Accession Number(s): [id number] cc: Jaqueline Vidales MD; Sabi Briceño MD [...] 04/20/25 1524 DD/ 1340 TD/TT: 04/20/25 1400 Bed Spring Maker: Jaqueline Vidales MD IMG XR PROCEDURES Edited R esult - Final * BI Mammogram Screening Tomosynthesis Bilateral (12/12/2024 3:45 PM EDT) Anatomical Region Laterality Modality Breast Bilateral Mammography 12/12/2024 3:45 PM EDT Narrative 12/19/2024 3:31 PM EDT [facility] [address] [place] [address] Mammography Report Signed Patient: Shreya Pulliam MR#: [id number] : 1980 Acct:[id number] Age/Sex: 44 / F ADM Date: 12/12/24 Loc: HO.MAMMO Attending Dr: Ashlee Hills MD Ordering Physician: Ashlee Hills Results: 1Negative Date of Service: 12/12/24 Follow Up: 1 Year From Orig inal Mammogram Procedure(s): MM tomosynthesis screening BI Accession Number(s): [id number] cc: Ashlee Hills; Sabi Briceño MD EXAMINATION: [...] 12/19/24 1528 DD/ 1545 TD/TT: 12/12/24 1603 Bed Spring Maker: Procedure Note Donotuseinterpreter, Image - [facility]19/[facility] [address] [place], [place] [address] Mammography Report Signed Patient: Kianna Pulliam#: [id number] : 1980Acct:[id number] Age/Sex: 44 / FADM Date: 12/12/24 Loc: HO.MAMMO Attending Dr: Ashlee Hills MD Ordering Physician: Zena Hillsults: 1Negative Date of Service: 12/12/24Follow Up: 1 Year From Orig inal Mammogram Procedure(s): MM tomosynthesis screening BI Accession Number(s): [id number] cc: Ashlee Hills; Sabi Briceño MD EXAMINATION: [...] 12/19/24 1528 DD/ 1545 TD/TT: 12/12/24 1603 Bed Spring Maker: Ashlee Hills MD IMG BI PROCEDURES Final Result * Hepatitis C Antibody with Reflex to HCV, RNA, Quantitative, Real-Time PCR (11/07/2022 11:44 AM EST) Hepatitis C Antibody NON-REACT RUPINDER NON-REACT RUPINDER [facility] Index 0.04 <1.00 [facility] Comment: HCV antibody was non-reactive. There is no laboratory evidence of HCV infection. In most cases, no further action is required. However, if recent HCV exposure is suspected, a test for HCV RNA (test code 04790) is suggested. For additional information please refer to http://[employer]zap.[employer]/faq/OTA27m9 (This link is being provided for informational/ educational purposes only.) Blood Venous blood specimen / Unknown 11/07/2022 11:44 AM EST 11/07/2022 11:45 AM EST Narrative [facility] - 11/08/2022 7:04 PM EST FASTING:YES FASTING: YES Dorothea Clifford [facility] LAB BLOOD ORDERABLES Final Result [facility] [[email or web address] [address] [facility], [facility], [place] [address] [facility] [address] [facility], (Nl2) [place] [address] * HIV-1/2 Antigen and Antibodies, Fourth Generation, with Reflexes (11/07/2022 11:44 AM EST) HIV Antigen/Antibody, 4th Generation NON-REAC TIVE NON-REAC TIVE [facility] [place] [employer] [facility] Comment: HIV-1 antigen and HIV-1/HIV-2 antibodies were [...] purpose. For additional information please refer to http://education.[employer]/faq/RUI341 (This link is being provided for informational/ educational purposes only.) The performance of this assay has not been clinically validated in patients less than 2 years old. Blood Venous blood specimen / Unknown 11/07/2022 11:44 AM EST 11/07/2022 11:45 AM EST Narrative [facility] - 11/08/2022 7:04 PM EST FASTING:YES FASTING: YES Dorothea Leann Clifford [employer] LAB BLOOD ORDERABLES Final Result Performing Organization Address [facility]/ZIP Co de Phone Number [facility] [address] [place] [address], [place] [phone] [facility] [address] [place] [address], (Nl2) [place] [address] * THINPREP PAP (06/11/2021 12:00 AM EDT) [...] along with historic and current clinical information. Heel Former : SEE COMMENT [facility] Comment: RXB, CT(ASCP) CT screening location: [place] [address] Interpretation/R esult: Negative for intraepithelial lesion or malignancy. [facility] LMP: NONE [facility] Prev. BX: NONE [facility] Prev. PAP: NONE [facility] SOURCE: None given [facility] Statement Of Adequacy: SEE COMMENT [facility] Comment: Satisfactory for evaluation. Endocervical/transformation zone component present. Age and/or menstrual status not provided 06/11/2021 Emi Monteiro NP LAB PATHOLOGY ORDERABLES Final Result [facility] [address] * HPV mRNA E6/E7 (06/11/2021 12:00 AM EDT) HPV nRNA E6/E7 Not Detected Not Detected [facility] Comment: Methodology: [employer] Compounder-Mediated Amplification This assay detects E6/E7 viral messenger RNA (mRNA) from 14 high-risk HPV types (16,18,31,33,35,39,45,51,52,56,58,59,66,68). The analytical performance characteristics of this assay have been determined by [facility]. The modifications have not been cleared or approved by the FDA. This assay has been validated pursuant to the CLIA regulations and is used for clinical purposes. For additional information, please refer to http://education.[employer]/faq/BQQ594h4 (This link if provided for information/ educational purposes only.) 06/11/2021 Emi Monteiro NP LAB BLOOD ORDERABLES Final Resu lt [facility] [address] from Last 3 Months or Most Recently Relevant to Health Maintenance Insurance [facility] Care Teams Automotive Painter Helper Relationship Specialty Start Date End Date Sabi Briceño MD [address] [place] [address] PCP - General Internal Medicine 07/07/23
--- OUTSIDE RECORDS SUMMARY | 2025-07-20 19:34 | XMS_ITS | Encounter Summary ---
Author Organization [employer] Address [address] [place] [address] Care Team Providers Care Microbiology Lab Technician Name Role Phone Sabi Briceño MD Primary Care Pro vider Encounter Details Date Type Department Care Team (Late st Contact Info) Description 12/29/2024 Orders Only [facility] [address] [place] [address] Ashlee Hills MD [address] [place] [address] Social History Tobacco Use Types Packs/Day Years [...] EST Clinical Support [facility] [address] [place] [phone] documented as of this encounter Visit Diagnoses Not on filedocumented in this encounter Additional Health Concerns Assessment Noted Time PHQ-9 Depression Total Score: 13 024 1:31 PM EDT documented as of this encounter Care Teams Microbiology Lab Technician Relationship Specialty Start Date End Date Sabi Briceño MD [address] [place] [id number] PCP - General Internal Medicine 07/07/23 documented as of this encounter
== END 2025-07-20 16:38 | disposition home or self-care (01) ==
LOC: HO.MRI 16:37
PROVIDERS: PCP Student in an Organized Health Care Education/Training Program; Visit Provider Student in an Organized Health Care Education/Training Program
DX: M54.16 Radiculopathy, lumbar region (principal); M54.40 Lumbago with sciatica, unspecified side; G89.29 Other chronic pain
CPT/HCPCS: 72148

== ENCOUNTER 2025-07-21 11:09 | Outpatient (REF) | payer MEDICAID, SELFPAY ==
--- NOTE | ~2025-07-21 | US_ITS ---
EXAMINATION: US PELVIS TRANSABDOMINAL AND TRANSVAGINAL HISTORY: menorrhagia ,chronic pelvic pain COMPARISON: There are no prior studies available for comparison. TECHNIQUE: Transabdominal and endovaginal real-time 2D mcclure-scale ultrasound was performed. FINDINGS: Uterus: The uterus is normal in size, measuring 1.3 x 5.0 x 5.8 cm. There may be a septate configuration. Myometrium has a normal echotexture. There is an anterior fibroid measuring 1.6 x 1.3 x 1.6 cm. Endometrium: The endometrial stripe measures and mm in thickness. Nabothian cysts in the cervix. Right ovary: The right ovary measures 2.4 x 2.3 x 2.6 cm. The right ovary is normal in size and echotexture. Left ovary: The left ovary measures 2.7 x 1.4 x 2.0 cm. The left ovary is normal in size and echotexture. Pelvic fluid: none. US/US pelvic and transvaginal IMPRESSION: Possible septate uterus. Nabothian cysts in the cervix. Otherwise unremarkable pelvic ultrasound. Electronically signed by: Rc Alva MD 07/21/2025 12:21 PM EDT
--- OUTSIDE RECORDS SUMMARY | 2025-07-21 13:33 | XMS_ITS | Encounter Summary ---
Author Organization [employer] Address [address] [place] [address] [place] [address] Care Team Providers Care Inspector Packer Name Role Phone Sabi Briceño MD Primary Care Pro vider Reason for Visit * Reason Onset Date Comments Appointment Request 06/22/2025 Encounter Details Date Type Department Care Team ([facility] st Contact Info) Description 06/22/2025 Telephone [facility] [address] [place] [address] Sabi Briceño MD [address] [place] [address] Appointment Request Social History Tobacco Use Types [...] Description 08/11/2025 1:30 PM EST Clinical Support [facility] [address] [place] [address] documented as of this encounter Visit Diagnoses Not on filedocumented in this encounter Additional Health Concerns Assessment Noted Time PHQ-9 Depression Total Score: 0 01/19/20 25 9:45 AM EDT documented as of this encounter Care Teams Inspector Packer Relationship Specialty Start Date End Date Sabi Briceño MD [address] [place] [address] PCP - General Internal Medicine 07/07/23 documented as of this encounter
--- OUTSIDE RECORDS SUMMARY | 2025-07-21 13:33 | XMS_ITS | Encounter Summary ---
Author Organization [employer] Address [address] [place] [address] Care Team Providers Care Kettle Hand Name Role Phone Sabi Briceño MD Primary Care Pro vider Encounter Details Date Type Department Care Team (Late st Contact Info) Description 12/29/2024 Orders Only [facility] [address] [place] [address] Ashlee Hills MD [address] [place] [address] Social History Tobacco Use Types Packs/Day Years [...] Description 08/11/2025 1:30 PM EST Clinical Support [facility] [address] [place] [phone] documented as of this encounter Visit Diagnoses Not on filedocumented in this encounter Additional Health Concerns Assessment Noted Time PHQ-9 Depression Total Score: 13 024 1:31 PM EDT documented as of this encounter Care Teams Kettle Hand Relationship Specialty Start Date End Date Sabi Briceño MD [address] [place] [phone] PCP - General Internal Medicine 07/07/23 documented as of this encounter
--- OUTSIDE RECORDS SUMMARY | 2025-07-21 13:33 | XMS_ITS | Encounter Summary ---
Author Organization [employer] Address [address] [place] [phone] Care Team Providers Care Inbound Call Center Representative Name Role Phone Sabi Briceño MD Primary Care Pro vider Reason for Visit * Reason Onset Date Comments Results 07/21/2025 Encounter Details Date Type Department Care Team ([facility] Contact Info) Description 07/21/2025 Results Follow-Up [facility] [address] [place] [address] Sabi Briceño MD [address] [place] [address] MR Lumbar Spine w/o Contrast Social History Tobacco Use Types Packs/Day Years [...] Q2 Not on file 06/30/2024 Comments No Sex and Gender Information Value Date Recorded Sex Assigned at Female 07/28/2022 10:20 AM EDT Legal Sex Female 10:20 AM EDT Gender Identity Female 07/28/2022 10:20 AM EDT Sexual Orientation Straight 07/28/2022 10 :20 AM EDT documented as of this encounter Miscellaneous Notes * Telephone Encounter - Farideh Melendez - 07/21/2025 12:25 PM EDT Tc from retuning call * Telephone Encounter - Emelia Ayoub RN - 07/21/2025 9:42 AM EDT Telephone call to pt via [facility] [place] [phone]. Advised that MRI of the lumbar spine showed herniated discs but no nerve compression, PCP recommends starting care with pain management. Pt has appointment 07/25/25. Pt asked what can be done with pain in the meantime because the pain is so strong it goesinto my leg and can make it hard to stand , this is documented in provider visit 07/02/25, advised pt to continue to use lidocaine patches and gabapentin per in the interim but that pain management clinic will advise further on this. Pt verbalized understanding. * Telephone Encounter - Emelia Ayoub RN - 07/21/2025 9:34 AM EDT ----- Message from Sabi Crouch MD sent at 07/21/2025 9:12 AM EDT ----- Please inform pt of Lumbar MRI report 06/2025 : Multilevel spondylosis from L3-4 to L5-S1 pronounced at L4-5 and L5-S1 without compression upon neural elements. Mild epidural lipomatosis at L5-S1. ---- Noted from description L2-3-4-5: Broad-based disc bulging. Facet joint hypertrophy. No compression upon neural elements. L5-S1: Mild prominent epidural fat in a circumferential fashion. Broad-based disc bulging. Facet joint hypertrophy. Reduced AP diameter of the thecal sac. --please explain has some herniated disc in lower back but no nerve compression seen Please encourage to start care w Pain management as referred at last apt Thanks ----- Message ----- From: Interface, Ris Results In Sent: 07/21/2025 7:08 AM EDT To: Sabi Crouch MD * Result Encounter Note - Sabi Crouch MD - 07/21/2025 9:12 AM EDT Please inform pt of Lumbar MRI report 06/2025 : Multilevel spondylosis from L3-4 to L5-S1 pronounced at L4-5 and L5-S1 without compression upon neural elements. Mild epidural lipomatosis at L5-S1. ---- Noted from description L2-3-4-5: Broad-based disc bulging. Facet joint hypertrophy. No compression upon neural elements. L5-S1: Mild prominent epidural fat in a circumferential fashion. Broad-based disc bulging. Facet joint hypertrophy. Reduced AP diameter of the thecal sac. --please explain has some herniated disc in lower back but no nerve compression seen Please encourage to start care w Pain management as referred at last apt Thanks documented in this encounter Plan of Treatment Upcoming Encounters Date Type Department Care Team (Late st Contact Info) Description 08/11/2025 1:30 PM EST Clinical Support [facility] [address] [place] [phone] documented as of this encounter Visit Diagnoses Not on filedocumented in this encounter Additional Health Concerns Assessment Noted Time PHQ-9 Depression Total Score: 0 01/19/20 25 9:45 AM EDT documented as of this encounter Care Teams Inbound Call Center Representative Relationship Specialty Start Date End Date Sabi Briceño MD [address] [place] [phone] PCP - General Internal Medicine 07/07/23 documented as of this encounter
--- OUTSIDE RECORDS SUMMARY | 2025-07-21 13:33 | XMS_ITS | Encounter Summary ---
Author Organization [employer] Address [address] [place] [address] Care Team Providers Care Electrical Installer Name Role Phone Sabi Briceño MD Primary Care Pro vider Reason for Visit * Reason Onset Date Comments New Med Request 02/09/2025 Encounter Details Date Type Department Care Team ([facility] st Contact Info) Description 02/09/2025 Telephone [facility] [address] [place] [address] Sabi Briceño MD [address] [place] [address] New Med Request Social History Tobacco Use [...] EDT Telephone call to pt via S surveillance director Fitz #[id number]. Pt reports seasonal allergies to pollen, describes current itchy eyes and runny nose, states that she gets this every year, denies having takenany OTC meds for allergies. Pt has 1 year supply of Zyrtec on med list, advised her of this howevershe reports never having picked this up. Explained this is allergy medication, pt now aware and plans to pickling machine operator from [facility]. She asked about any other allergy medications, advised her can send message to PCP however if she feels symptoms are bad she is advised to go to [facility]. Pt verbalized understanding, no further questions. * Telephone Encounter - Mary Padilla - 02/09/2025 3:10 PM EDT Tc from pt requesting medications for allergies due to pollen pt denied triage. Please return call [phone] documented in this encounter Plan of Treatment Upcoming Encounters Date Type Department Care Team (Late st Contact Info) Description 08/11/2025 1:30 PM EST Clinical Support [facility] [address] [place] [address] documented as of this encounter Visit Diagnoses Not on filedocumented in this encounter Additional Health Concerns Assessment Noted Time PHQ-9 Depression Total Score: 0 01/19/20 25 9:45 AM EDT documented as of this encounter Care Teams Electrical Installer Relationship Specialty Start Date End Date Sabi Briceño MD [address] [place] [address] PCP - General Internal Medicine 07/07/23 documented as of this encounter
--- OUTSIDE RECORDS SUMMARY | 2025-07-21 13:33 | XMS_ITS | Clinical Summary ---
Author Organization [employer] Address [address] [place] [address] 7[address] [place] [address] Care Team Providers Care Benzol Still Operator Name Role Phone Sabi Briceño MD [...] (major depressive disord er), recurrent episode, moderate ([facility]) 09/14/2014 Migraine 09/07/2012 Lumbar spondylosis 05/28/2012 Overview [...] Encounters Date Type Department Care Team Description 07/21/2025 Results Follow-Up [facility] [address] [facility] [place] [address] Sabi Briceño MD MR Lumbar Spine w/o Contrast 06/29/2025 2:15 PM EDT Office Visit [facility] MEDICINE [address] [place] [address] Sabi Briceño MD Lumbar radiculopathy (Primary Dx); Chronic low back pain with sciatica, sciatica laterality unspecified, unspecified back pain laterality; Primary hypertension; Obesity (BMI 30-39.9); Health care maintenance; 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 (CMS/HCC) (HCC); Fibromyalgia; Lumbar spondylosis; Hyperlipidemia, unspecified hyperlipidemia type 06/28/[address] [address] Sabi Briceño MD chart prep 06/22/[address] [address] Sabi Briceño MD Appointment Request 06/22/2025 Patient Outreach [facility] [address] [place], [place] [phone] Sabi Briceño MD Pre-visit Planning ([facility] unable to reach [facility] ) [address] [address] Sabi Briceño MD pe summary 06/19/[address] [address] Sabi Briceño MD chart prep 06/19/2025 Telephone [facility] WALK-IN CENTER [address] [place] [phone] Candi Ni [place] 06/19/2025 Telephone [facility] WALK[facility]IN [facility] [address] [place] [phone] Candi Ni [place] 06/14/2025 Results Follow-Up [address] [address] Sabi Briceño MD Iron And Total Iron Binding Capacity, Ferritin, CBC, Additional followed-up results: 2 06/14/[address] [address] Sabi Briceño MD Med Refill 06/14/2025 Orders Only [address] [address] Martina Clinton RN Screening for tuberculosis 06/09/2025 Outside Procedure [facility] OPTOMETRY [address] [place] [address] Corey Mejian, OD Presbyopia (Primary Dx) 06/07/2025 10:00 AM EDT Office Visit [facility] OPTOMETRY [address] [place] [address] Kayy Mejia, OD Myopia of both eyes (Primary Dx) 05/16/2025 10:00 AM EDT Nutrition [facility] DIABETES/NUTRITION [address] [place] [phone] Mar Ashton, RD Obesity (BMI 30-39.9) 05/16/2025 Travel 05/10/2025 Telephone [facility] MEDICINE [address] [place] [address] Sabi Briceño MD Referral 05/05/2025 Orders Only [facility] MEDICINE [address] [place] [phone] Sabi Briceño MD Dysmenorrhea (Primary Dx); Menorrhagia with regular cycle 05/02/2025 Telephone [facility] MEDICINE [address] [place] [phone] Sabi Briceño MD Call Back Request; Referral 05/01/2025 Telephone [facility] MEDICINE [address] [place] [phone] Sabi Briceño MD oct. 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); Tortuous retinal veins; Crowded optic disc, bilateral; Presbyopia 04/27/2025 Travel 04/26/2025 Orders Only [facility] MEDICINE [address] [place] [phone] Sabi Briceño MD Chronic low back pain without sciatica, unspecified back pain laterality (Primary Dx) 04/26/2025 Telephone [facility] MEDICINE [address] [place] [phone] Sabi Briceño MD Referral 04/20/2025 1:30 PM EDT Office Visit [facility] MEDICINE [address] [place] [address] Sabi Briceño MD Health care maintenance (Primary Dx); Primary hypertension; Fibromyalgia; Obesity (BMI 30-39.9); Chronic low back pain without sciatica, unspecified back pain laterality; Lumbar spondylosis 04/20/2025 Results Follow-Up [facility] [address] [facility] [place] [address] Sabi Briceño MD XR Lumbar Spine 2-3 [...] housing situation today? I have brad sing 01/09/[address] you li [...] Description 08/11/2025 1:30 PM EST Clinical Support [address] [address] Health Maintenance Due Date Last Done Comments [...] Procedure Name Priority Date/Time Associated Diagnosis Comments US PELVIS TRANSVAGINAL Routine 07/21/2025 11:28 AM EDT Dysmenorrhea Menorrhagia with regular cycle MR LUMBAR SPINE WO CONTRAST Routine 07/20/2025 4:50 PM EDT Lumbar radiculopathy Chronic low back pain with sciatica, sciatica laterality unspecified, unspecified back pain laterality T-SPOT(R).TB Routine 06/14/2025 10:22 AM EDT Screening [...] Recently Relevant to Health Maintenance Results * US Pelvis Transvaginal (07/21/2025 11:28 AM EDT) Anatomical Region Laterality Modality Pelvis Ultrasound 07/21/2025 11:2 8 AM EDT Narrative 07/21/2025 12:24 PM EDT [place] [address] Ultrasound Report Signed Patient: Shreya Pulliam MR#: [id number] 896 : 1980 Acct:[id number] Age/Sex: 45 / F ADM Date: 07/21/25 Loc: HO.US Attending Dr: Kristy Mcgowan NP Ordering Physician: Sabi Briceño MD Date of Service: 07/21/25 Procedure(s): US pelvic and transvaginal Accession Number(s): [id number] cc: Sabi Briceño MD Reason for Exam: menorrhagia ,chronic pelvic pain EXAMINATION: US PELVIS TRANSABDOMINAL AND TRANSVAGINAL HISTORY: menorrhagia ,chronic pelvic pain COMPARISON: There are no prior studies available for comparison. TECHNIQUE: Transabdominal and endovaginal real-time 2D mcclure-scale ultrasound was performed. FINDINGS: Uterus: The uterus is normal in size, measuring 1.3 x 5.0 x 5.8 cm. There may be a septate configuration. Myometrium has a normal echotexture. There is an anterior fibroid measuring 1.6 x 1.3 x 1.6 cm. Endometrium: The endometrial stripe measures and mm in thickness. Nabothian cysts in the cervix. Right ovary: The right ovary measures 2.4 x 2.3 x 2.6 cm. The right ovary is normal in size and echotexture. Left ovary: The left ovary measures 2.7 x 1.4 x 2.0 cm. The left ovary is normal in size and echotexture. Pelvic fluid: none. US/US pelvic and transvaginal IMPRESSION: Possible septate uterus. Nabothian cysts in the cervix. Otherwise unremarkable pelvic ultrasound. Electronically signed by: Rc Alva MD 07/21/2025 12:21 PM EDT RP Dictated By: Rc Alva MD Signed By: <Electronically signed by Rc Alva MD in OV> 07/21/25 1221 DD/ 1128 TD/TT: 07/21/25 1147 [employer] Shaper Operator: Procedure Note Donotuseinterpreter, Image - 07/21/2025 [place] [address] Ultrasound Report Signed Patient: Kianna Pulliam#: [id number] 896 : 1980Acct:[id number] Age/Sex: 45 / FADM Date: 07/21/25 Loc: HO.US Attending Dr: Kristy Mcgowan NP Ordering Physician: Sabi Briceño MD Date of Service: 07/21/25 Procedure(s): US pelvic and transvaginal Accession Number(s): [id number] cc: Sabi Briceño MD Reason for Exam: menorrhagia ,chronic pelvic pain EXAMINATION: US PELVIS TRANSABDOMINAL AND TRANSVAGINAL HISTORY: menorrhagia ,chronic pelvic pain COMPARISON: There are no prior studies available for comparison. TECHNIQUE: Transabdominal and endovaginal real-time 2D mcclure-scale ultrasound was performed. FINDINGS: Uterus: The uterus is normal in size, measuring 1.3 x 5.0 x 5.8 cm. There may be a septate configuration. Myometrium has a normal echotexture. There is an anterior fibroid measuring 1.6 x 1.3 x 1.6 cm. Endometrium: The endometrial stripe measures and mm in thickness. Nabothian cysts in the cervix. Right ovary: The right ovary measures 2.4 x 2.3 x 2.6 cm. The right ovary is normal in size and echotexture. Left ovary: The left ovary measures 2.7 x 1.4 x 2.0 cm. The left ovary is normal in size and echotexture. Pelvic fluid: none. US/US pelvic and transvaginal IMPRESSION: Possible septate uterus. Nabothian cysts in the cervix. Otherwise unremarkable pelvic ultrasound. Electronically signed by: Rc Alva MD 07/21/2025 12:21 PM EDT Dictated By: Rc Alva MD Signed By: <Electronically signed by Rc Alva MD in OV> 07/21/25 1221 DD/ 1128 TD/TT: 07/21/25 1147 [employer] Parts Shaper Operator: us Sabi Crouch MD IMG US PROCEDURES Final Result * MR Lumbar Spine w/o Contrast (07/20/2025 4:50 PM EDT) Anatomical Region Laterality Modality Spine, L-spine Magnetic Resonan ce 07/20/2025 4:50 PM EDT Narrative 07/21/2025 7:07 AM EDT [place] [address] Magnetic Resonance Report Signed Patient: Shreya Pulliam MR#: [id number] 896 : 1980 Acct:[id number] Age/Sex: 45 / F ADM Date: 07/20/25 Loc: HO.MRI Attending Dr: Sabi Crouch MD Ordering Physician: Sabi Briceño MD Date of Service: 07/20/25 Procedure(s): MR lumbar spine wo con Accession Number(s): [id number] cc: Sabi Briceño MD Reason for Exam: chronic lower back pain not improving w PT causing radiculoapthy EXAMINATION: MR LUMBAR SPINE WITHOUT CONTRAST CLINICAL INFORMATION: Chronic low back pain with radiculopathy. COMPARISON: None available. TECHNIQUE: MRI of the lumbar spine was obtained using routine sequences without contrast. FINDINGS: Last rib-bearing vertebra labeled T12. No bone marrow STIR signal abnormality. Decreased intervertebral disc height and signal at L4-5 and L5-S1. Small Schmorl nodes in the endplates of T11 and T12. Focal hyperintense T2 signal in the right posterior intervertebral disc L5-S1 likely annular fissure. Alignment is normal. Conus medullaris ends at pedicle of L2 with normal signal. T12-L1: No central spinal canal or neuroforamina stenosis. No herniated disc. L1-2: No herniated disc. No central spinal canal or neuroforamina stenosis. L2-3: Broad-based disc bulging. Facet joint hypertrophy. No compression upon neural elements. L3-4: Broad-based disc bulging. Facet joint hypertrophy. No compression upon neural elements. L4-5: Broad-based disc bulging. Facet joint ligamentum flavum hypertrophy. Reduced AP diameter of the thecal sac and neuroforamina. L5-S1: Mild prominent epidural fat in a circumferential fashion. Broad-based disc bulging. Facet joint hypertrophy. Reduced AP diameter of the thecal sac. No prevertebral compartment hematoma, mass or fluid collection. MR/MR lumbar spine wo con IMPRESSION: Multilevel spondylosis from L3-4 to L5-S1 pronounced at L4-5 and L5-S1 without compression upon neural elements. Mild epidural lipomatosis at L5-S1. Electronically signed by: Ryan Harding MD 07/21/2025 07:04 AM EDT Dictated By: Ryan Garnica MD Signed By: <Electronically signed by Ryan Clinton MD in OV> 07/21/25 0704 DD/ 1650 TD/TT: 07/20/25 1720 Small Parts Shaper Operator: Procedure Note Donotuseinterpreter, Image - 07/21/[address] [address] Magnetic Resonance Report Signed Patient: Kianna Pulliam#: [id number] 896 : 1980Acct:[id number] Age/Sex: 45 / FADM Date: 07/20/25 Loc: HO.MRI Attending Dr: Sabi Crouch MD Ordering Physician: Sabi Briceño MD Date of Service: 07/20/25 Procedure(s): MR lumbar spine wo con Accession Number(s): [id number] cc: Sabi Briceño MD Reason for Exam: chronic lower back pain not improving w PT causingradiculoapthy EXAMINATION: MR LUMBAR SPINE WITHOUT CONTRAST CLINICAL INFORMATION: Chronic low back pain with radiculopathy. COMPARISON: None available. TECHNIQUE: MRI of the lumbar spine was obtained using routine sequences without contrast. FINDINGS: Last rib-bearing vertebra labeled T12. No bone marrow STIR signal abnormality. Decreased intervertebral disc height and signal at L4-5 and L5-S1. Small Schmorl nodes in the endplates of T11 and T12. Focal hyperintense T2 signal in the right posterior intervertebral disc L5-S1 likely annular fissure. Alignment is normal. Conus medullaris ends at pedicle of L2 with normal signal. T12-L1: No central spinal canal or neuroforamina stenosis. No herniated disc. L1-2: No herniated disc. No central spinal canal or neuroforamina stenosis. L2-3: Broad-based disc bulging. Facet joint hypertrophy. No compression upon neural elements. L3-4: Broad-based disc bulging. Facet joint hypertrophy. No compression upon neural elements. L4-5: Broad-based disc bulging. Facet joint ligamentum flavum hypertrophy. Reduced AP diameter of the thecal sac and neuroforamina. L5-S1: Mild prominent epidural fat in a circumferential fashion. Broad-based disc bulging. Facet joint hypertrophy. Reduced AP diameter of the thecal sac. No prevertebral compartment hematoma, mass or fluid collection. MR/MR lumbar spine wo con IMPRESSION: Multilevel spondylosis from L3-4 to L5-S1 pronounced at L4-5 and L5-S1 without compression upon neural elements. Mild epidural lipomatosis at L5-S1. Electronically signed by: Ryan Harding MD 07/21/2025 07:04 AM EDT Dictated By: Ryan Garnica MD Signed By: <Electronically signed by Ryan Clinton MDin OV> 07/21/25 0704 DD/ 1650 TD/TT: 07/20/25 1720 Small [employer] Shaper Operator: us Sabi Crouch MD IMG MRI PROCEDURE S Final Result * T-SPOT??.TB (06/14/2025 10:22 AM EDT) T Spot TB Negative Negative [facility] Comment:A negative test resu lt [...] as aquantitative test. TS PANEL A 0 [facility] TS PANEL B 0 [facility] Negative Control Passed [facility] Positive Control Passed [facility] Comment:For additional infor erica, please refer tohttp://education.Tails.com/faq/XNX990(This link is being provided for informational/educational purposes only.)THIS TEST WAS PERFORMED AT:[facility] [place] [phone] ADAMS MD,PHD 06/14/2025 10:2 2 AM EDT 06/14/2025 11:14 AM EDT us Sabi Crouch MD LAB BLOOD ORDERAB LES Final Result [facility] [address] [place] [phone] * Measles, Mumps, and Rubella (MMR) Antibodies??(IgG) Panel, Immune Status (06/14/2025 10:22 AM EDT) Mumps Virus IgG Antibody 60.00 AU/mL [facility] Comment:AU/mL Interpretation ------- <9.00 Not consistent with immunity9.00-10.99 Equivocal>10.99 Consistent with immunityThe presence of mumps IgG antibody suggests immunizationor past or current infection with mumps virus. Rubella IgG Antibody 5.63 Index [facility] Comment:Index Interpretation ----- <0.90 Not consistent with immunity 0.90-0.99 Equivocal > or = 1.00 Consistent with immunityThe presence of rubella IgG antibody suggestsimmunization or past or current infection withrubella virus.THIS TEST WAS PERFORMED AT:[employer] [place] [phone] GARCIA MD Rubeola IgG (Measles) 54.90 AU/mL [facility] Comment:AU/mL Interpretation ----- <13.50 Not consistent with igqtbwot51.50-16.49 Equivocal>16.49 Consistent with immunityThe presence of measles IgG suggests immunization orpast or current infection with measles virus.For additional information, please refer tohttp://education.Zipari/faq/HAK496(This link is being provided for informational/educational purposes only.) Blood Venous blood specimen / Unknown 06/14/2025 10:22 AM EDT 06/14/2025 11:14 AM EDT us Sabi Crouch MD LAB BLOOD ORDERAB LES Final Result [facility] [address] [place] [phone] * Iron And Total Iron Binding Capacity (06/14/2025 10:22 AM EDT) Iron 64 30 - 160 mcg/dL [facility] Total Iron Binding Capacity 307 228 - 428 mcg/dL [facility] Percent Iron Saturation 21 15 - 50 % [facility] Unsaturated Iron Binding 243 ug/dL [facility] Blood Venous blood specimen / Unknown 06/14/2025 10:22 AM EDT 06/14/2025 1:16 PM EDT us Sabi Crouch MD LAB BLOOD ORDERAB LES Final Result [facility] [address] [place] [phone] * Hepatitis B surface antigen, EIA (06/14/2025 10:22 AM EDT) Pathologist [facility] Hepatitis B Surface Ag Negative Negative [facility] Blood Venous blood specimen / Unknown 06/14/2025 10:22 AM EDT 06/14/2025 11:14 AM EDT us Sabi Crouch MD LAB BLOOD ORDERAB LES Final Result Performing Organization Address [facility] Co de Phone Number [facility] [address] [place] [phone] * Hepatitis B Core Antibody, Total (06/14/2025 10:22 AM EDT) Pathologist [facility] Hepatitis B Core Antibody Nonreactive Nonreactive [facility] Blood Venous blood specimen / Unknown 06/14/2025 10:22 AM EDT 06/14/2025 11:14 AM EDT Sabi Crouch MD LAB BLOOD ORDERAB LES Final Result Performing Organization Address [facility] Co de Phone Number [facility] [address] [place] [phone] * Hepatitis B Surface Antibody, Qualitative (06/14/2025 10:22 AM EDT) Pathologist [facility] ~Hepatitis B Surface Antibody REACTIVE Nonreactive [facility] Comment:REACTIVE: > 11.99 mI U/mL Blood Venous blood specimen / Unknown 06/14/2025 10:22 AM EDT 06/14/2025 11:14 AM EDT Sabi Crouch MD LAB BLOOD ORDERAB LES Final Result [facility] [address] [place] [phone] * (ABNORMAL) CBC (06/14/2025 10:22 AM EDT) [facility] White Blood Count 3.7(L) 4.8 - 10.8 X10*3/uL [facility] Red Blood Count 4.47 4.20 - 5.50 X10*6/uL [facility] Hemoglobin 11.4(L) 12.0 - 16.0 g/dl [facility] Hematocrit 36.0(L) 37.0 - 47.0 % [facility] Mean Corpuscular Volume 80.5 80.0 - 98.0 fL [facility] Mean Corpuscular Hemoglobin 25.5(L) 27.0 - 33.0 pg [facility] Mean Corpuscular HGB Conc 31.7 31.0 - 35.0 g/dl [facility] Red Cell Distribution Width 14.9 11.0 - 16.0 % [facility] Platelet Count 257 160 - 400 X10*3/uL [facility] Mean Platelet Volume 11.4 9.4 - 12.3 fL [facility] NRBC Pct Auto 0.0 0.0 - 0.2 /100WBC [facility] NRBC Abs Auto 0.000 0.0 - 0.012 X10*3/uL [facility] Blood Venous blood specimen / Unknown 06/14/2025 10:22 AM EDT 06/14/2025 11:14 AM EDT us Sabi Crouch MD LAB BLOOD ORDERAB LES Final Result Performing Organization Address City/[facility]/ZIP Co de Phone Number [facility] [address] [place] [phone] * Ferritin (06/14/2025 10:22 AM EDT) Ferritin 27 10 - 250 ng/mL [facility] Blood Venous blood specimen / Unknown 06/14/2025 10:22 AM EDT 06/14/2025 1:16 PM EDT us Sabi Crouch MD LAB BLOOD ORDERAB LES Final Result Performing Organization Address [facility] Co de Phone Number [facility] [address] [place] [phone] * (ABNORMAL) Lipid Panel, Standard (06/14/2025 10:22 AM EDT) Triglycerides 112 <150 mg/dL [facility] Comment:Desirable Triglyceri de: less than 150 mg/dLBorderline High Triglyceride 150-199 mg/dLHigh Triglyceride: 200-499 mg/dLVery High Triglyceride: greater than or equal to 5OO mg/dL Cholesterol 233(H) <200 mg/dL [facility] Comment:Desirable Cholestero l: less than 200 mg/dLBorderline High Cholesterol: 200-239 mg/dLHigh Cholesterol: greater than 239 mg/dL LDL Cholesterol Calculated 133(H) <100 mg/dL [facility] Comment:Desirable LDL: less than 100 mg/dLNear Optimal/Above Optimal LDL: 110- 129 mg/dLBorderline High LDL: 130-159 mg/dLHigh LDL: 160-189 mg/dLVery High LDL: greater than or equal to 190 mg/dL HDL Cholesterol 78 >40 mg/dL [facility] Comment:Desirable HDL: great er than 40 mg/dL Note: This HDL assay may give artificially low results in patients with liver disease. Blood Venous blood specimen / Unknown 06/14/2025 10:22 AM EDT 06/14/2025 1:16 PM EDT us Sabi Crouch MD LAB BLOOD ORDERAB LES Final Result [facility] [address] [place] [phone] * (ABNORMAL) Comprehensive Metabolic Panel (06/14/2025 10:22 AM EDT) Sodium 141 135 - 145 mmol/L [facility] Potassium 4.0 3.3 - 5.1 mmol/L [facility] Chloride 103 96 - 108 mmol/L [facility] Carbon Dioxide 31(H) 22 - 29 mmol/L [facility] Anion Gap 11(L) 12 - 20 [facility] Urea Nitrogen (BUN) 12 9 - 16 mg/dL [facility] Creatinine, Serum 0.82 0.5 - 1.4 mg/dL [facility] Estimated Glomerular Filt Rate >60 [facility] Comment:Chronic Kidney Disea se: Estimated GFR < 60 mL/min/1.35d8Obrxdr Kidney Disease: Estimated GFR < 15 mL/min/1.73m2 Glucose 101 60 - 115 mg/dL [facility] Calcium 9.3 8.4 - 10.2 mg/dL [facility] Bilirubin, Total 0.4 0.0 - 1.0 mg/dL [facility] Aspartate Amino Transferase 22 5 - 31 U/L [facility] Alanine Aminotransferase 13 0 - 31 U/L [facility] Total Protein 7.9 6.5 - 8.0 g/dL [facility] Albumin Level 4.4 3.5 - 5.0 g/dL [facility] Alkaline Phosphatase 67 39 - 117 U/L [facility] Blood Venous blood specimen / Unknown 06/14/2025 10:22 AM EDT 06/14/2025 1:16 PM EDT us Sabi Crouch MD LAB BLOOD ORDERAB LES Final Result [facility] [address] [place] [phone] * Fundus Photos - OU - Both Eyes (04/27/2025 11:00 AM EDT) Kayy Bynum, DEVIN - 05/15/2025 3:20 PM EDT Images from [...] PM EDT Narrative 04/20/2025 3:27 PM EDT [address] [address] XRay Report Signed Patient: Shreya Pulliam MR#: [id number] 896 : 1980 Acct:[id number] Age/Sex: 44 / F ADM Date: 04/20/25 Loc: HO.HHX Attending Dr: Jaqueline Vidales MD Ordering Physician: Jaqueline Vidales MD Date of Service: 04/20/25 Procedure(s): XR lumbar spine 2-3V Accession Number(s): [id number] cc: Jaqueline Vidales MD; Sabi Briceño MD [...] 04/20/25 1524 DD/ 1340 TD/TT: 04/20/25 1400 Small Parts Shaper Operator: Procedure Note Donotuseinterpreter, Image - 04/20/2025 [place] [address] XRay Report Signed Patient: Kianna Pulliam#: [id number] 896 : 1980Acct:[id number] Age/Sex: 44 / FADM Date: 04/20/25 Loc: HO.HHCX Attending Dr: Jaqueline Vidales MD Ordering Physician: Jaqueline Vidales MD Date of Service: 04/20/25 Procedure(s): XR lumbar spine 2-3V Accession Number(s): [id number] cc: Jaqueline Vidales MD; Sabi Briceño MD [...] 04/20/25 1524 DD/ 1340 TD/TT: 04/20/25 1400 Small Parts Shaper Operator: us Jaqueline Vidales MD IMG XR PROCEDURES Edited R esult - Final * BI Mammogram Screening Tomosynthesis Bilateral (12/12/2024 3:45 PM EDT) Anatomical Region Laterality Modality Breast Bilateral Mammography 12/12/2024 3:45 PM EDT Narrative 12/19/2024 3:31 PM EDT [facility] [place] [address] Mammography Report Signed Patient: Shreya Pulliam MR#: [id number] 896 : 1980 Acct:[id number] Age/Sex: 44 / F ADM Date: 12/12/24 Loc: .MAMMO Attending Dr: Ashlee Hills MD Ordering Physician: Ashlee Hills Results: 1Negative Date of Service: 12/12/24 Follow Up: 1 Year From Orig ina Mammogram Procedure(s): MM tomosynthesis screening BI Accession Number(s): [id number] cc: Ashlee Hills; Sabi Brcieño MD EXAMINATION: MM SCREENING DIGITAL BREAST TOMOSYNTHESIS, [...] Natalie Uribe DO 12/19/2024 03:28 PM EDT RP Dictated By: Natalie Uribe DO Signed By: <Electronically signed by Natalie Uribe DO in OV> 12/19/24 1528 DD/ 1545 TD/TT: 12/12/24 1603 Small Parts Shaper Operator: Procedure Note Donotuseinterpreter, Image - 12/19/2024 [facility] [address] [place] [address] Mammography Report Signed Patient: Shreya PulliamMR#: [id number] 896 : 1980Acct:[id number] Age/Sex: 44 / FADM Date: 12/12/24 Loc: MAMMO Attending Dr: Ashlee Hills MD Ordering Physician: Zena Hillsults: 1Negative Date of Service: 12/12/24Follow Up: 1 Year From Orig inal Mammogram Procedure(s): MM tomosynthesis screening BI Accession Number(s): [id number] cc: Ashlee Hills; Sabi Briceño MD EXAMINATION: [...] Natalie Uribe DO 12/19/2024 03:28 PM EDT RP Dictated By: Natalie Uribe DO Signed By: <Electronically signed by Natalie Uribe DO in OV> 12/19/24 1528 DD/ 1545 TD/TT: 12/12/24 1603 Small Parts Shaper Operator: Ashlee Hills MD IMG BI PROCEDURES Final Result * Hepatitis C Antibody with Reflex to HCV, RNA, Quantitative, Real-Time PCR (11/07/2022 11:44 AM EST) Pathologist [facility] Hepatitis C Antibody NON-REACT RUPINDER NON-REACT RUPINDER [facility] [place] [facility] Index 0.04 <1.00 [facility] [place] [facility] Comment: HCV antibody was non-reactive. There is no laboratory evidence of HCV infection. In most cases, no further action is required. However, if recent HCV exposure is suspected, a test for HCV RNA (test code 02867) is suggested. For additional information please refer to http://education.Tails.com/faq/CPG67p2 (This link is being provided for informational/ educational purposes only.) Blood Venous blood specimen / Unknown 11/07/2022 11:44 AM EST 11/07/2022 11:45 AM EST Narrative [facility] [[email or web address]] - 11/08/2022 7:04 PM EST FASTING:YES FASTING: YES Result [facility] Dorothea Clifford EYE GLASS FRAME POLISHER LAB BLOOD ORDERABLES Final Result [facility] [address], [place] [address] [facility] [place] [facility] [address] [facility], ([address]) [place] [address] * HIV-1/2 Antigen and Antibodies, Fourth Generation, with Reflexes (11/07/2022 11:44 AM EST) [facility] HIV Antigen/Antibody, 4th Generation NON-REAC TIVE NON-REAC TIVE [facility] [place] [facility] Comment: HIV-1 antigen and HIV-1/HIV-2 antibodies were [...] purpose. For additional information please refer to http://education.Tails.com/faq/MVE584 (This link is being provided for informational/ educational purposes only.) The performance of this assay has not been clinically validated in patients less than 2 years old. Blood Venous blood specimen / Unknown 11/07/2022 11:44 AM EST 11/07/2022 11:45 AM EST Narrative [facility] - 11/08/2022 7:04 PM EST FASTING:YES FASTING: YES us Dorothea Clifford EYE GLASS FRAME POLISHER LAB BLOOD ORDERABLES Final Result [facility] [address] [place] [address], [place] [address] [facility] [address] [facility], ([address]) [place] [address] * THINPREP PAP (06/11/2021 12:00 AM EDT) Clinical Information: None given [facility] COMMENT SEE COMMENT FOUNDAT[facility] ON [...] along with historic and current clinical information. Shellfish Manager : SEE COMMENT [facility] Comment: RXB, CT(ASCP) CT screening location: [address] [address] Interpretation/R esult: Negative for intraepithelial lesion or malignancy. [facility] LMP: NONE GIVEN FOUNDATIO N LAB SYSTEM Prev. BX: NONE GIVEN FOUNDATIO N LAB SYSTEM Prev. PAP: NONE GIVEN FOUNDATI ON LAB SYSTEM SOURCE: None given [facility] N [facility] Statement Of Adequacy: SEE COMMENT [facility] Comment: Satisfactory for evaluation. Endocervical/transformation zone component present. Age and/or menstrual status not provided 06/11/2021 Emi Monteiro NP LAB PATHOLOGY ORDERABLES Final Result Performing Organization Address [facility] de Phone Number [facility] [address] * HPV mRNA E6/E7 (06/11/2021 12:00 AM EDT) HPV nRNA E6/E7 Not Detected Not Detected [facility] Comment: Methodology: Shell Shop Supervisor-Mediated Amplification This assay detects E6/E7 viral messenger RNA (mRNA) from 14 high-risk HPV types (16,18,31,33,35,39,45,51,52,56,58,59,66,68). The analytical performance characteristics of this assay have been determined by [facility]. The modifications have not been cleared or approved by the FDA. This assay has been validated pursuant to the CLIA regulations and is used for clinical purposes. For additional information, please refer to http://education.Webyog.Verified Identity Pass/faq/NKB422n1 (This link if provided for information/ educational purposes only.) 06/11/2021 Emi Monteiro NP LAB BLOOD ORDERABLES Final Resu lt Performing Organization Address [facility] Phone Number [facility] [address] from Last 3 Months or Most Recently Relevant to Health Maintenance Insurance [employer] Care Teams Benzol Still Operator Relationship Specialty Start Date End Date Sabi Briceño MD [address] [place] [id number] PCP - General Internal Medicine 07/07/23
--- OUTSIDE RECORDS SUMMARY | 2025-07-21 13:33 | XMS_ITS | Encounter Summary ---
Author Organization [employer] Address [address] [place] [address] [address] [place] [address] Care Team Providers Care Spinner Iron Name Role Phone Sabi Briceño MD Primary Care Pro vider Encounter Details Date Type Department Care Team (Late st Contact Info) Description 06/14/2025 Results Follow-Up [facility] [address] [place] [address] Sabi Briceño MD [address] [place] [address] Iron And Total Iron Binding Capacity, Ferritin, [...] Description 08/11/2025 1:30 PM EST Clinical Support [facility] [address] [place] [address] documented as of this encounter Visit Diagnoses Not on filedocumented in this encounter Additional Health Concerns Assessment Noted Time PHQ-9 Depression Total Score: 0 01/19/20 25 9:45 AM EDT documented as of this encounter Care Teams Spinner Iron Relationship Specialty Start Date End Date Sabi Briceño MD [address] [place] [address] PCP - General Internal Medicine 07/07/23 documented as of this encounter
== END 2025-07-21 11:10 | disposition home or self-care (01) ==
LOC: HO.US 11:09
PROVIDERS: PCP Student in an Organized Health Care Education/Training Program; Visit Provider Nurse Practitioner Primary Care
DX: N94.6 Dysmenorrhea, unspecified (principal); N92.0 Excessive and frequent menstruation with regular cycle
CPT/HCPCS: 76830; 76856

== ENCOUNTER → 2025-07-21 11:14 | Outpatient (BNV) | payer MEDICAID, SELFPAY | PROVIDERS: PCP Student in an Organized Health Care Education/Training Program; Visit Provider Radiology Diagnostic Radiology | DX: N92.0 Excessive and frequent menstruation with regular cycle (principal); R10.23 Pelvic and perineal pain bilateral | CPT/HCPCS: 76830; 76856 ==

== ENCOUNTER 2025-07-25 13:16 | Outpatient (AMB) | payer MEDICAID, SELFPAY ==
--- NOTE | 2025-07-25 13:25 | MHC.OFFVIS ---
Vital Signs 07/25/25 13:27 Height 5 ft 6 in Weight 191 lb 8 oz BMI 30.9 BP 140/81 H Blood Pressure Location Rt brachial Position Sitting Pulse 103 H Pulse Source Pulse Oximeter Pulse Oximetry (%) 97 Oxygen Delivery Method Room Air Intake Visit Reasons: CHRONIC LOW BACK PAIN Intake Note: Pain today 05/07 Technical Staff Engineer Required: Yes Technical Staff Engineer Language: Parts Sales Advisor Name: Stacie #[id number] Information Interpreted: non-clinical & clinical Accompanied by: Self / Same As Patient Allergies No Known Allergies Allergy (Verified 07/13/25 08:43) HPI Comments Details: The patient is a 45-year-old female presenting with chronic low back pain. The pain has been present for several years without any specific inciting event. Lumbar spine MRI showed multilevel spondylosis from L3-4 to L5-S1 pronounced at L4-5 and L5-S1 without compression upon neural elements and mild epidural lipomatosis at L5-S1. The patient describes the pain as being located in the back and radiating to the legs, similar to sciatica. She has undergone physical therapy without significant improvement in symptoms. Patient denies previous spine surgery or injections. The patient works as a personal development mentor (SERVICES COORDINATOR), which may contribute to her back pain due to physical demands of the job. She has used OTC patches for relief. Ibuprofen was tried but did not provide significant relief, and she has not used Tylenol or other medications regularly. - Onset: Several years ago, no specific inciting event - Quality: Radiating pain similar to sciatica, pulshing, throbbing, aching, stabbing - Location: Low back, radiating to legs - Exacerbating factors: Physical activity related to work as a SERVICES COORDINATOR; walking, changing position from sitting to standing - Relieving factors: Use of pain relief patches - Affect: Pain negatively impacts on mood and psychological wellbeing, increases anxiety - Analgesia: Pain relief patches used, ibuprofen tried without significant relief - Adverse Effects: None reported - Activities of Daily Living: Pain impacts ability to perform work-related tasks as a SERVICES COORDINATOR - Aberrant Drug Related Behaviors: None reported Oswestry Low Back Pain Disability Score=39 [facility] Medical History (Updated 07/26/25 @ 14:40 by JABARI Ragland) HLD (hyperlipidemia) Dysmenorrhea 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 Vitamin D deficiency Anxiety Neutropenia Carpal tunnel syndrome MDD (major depressive disorder) Migraine HTN (hypertension) Acute anxiety Surgical History H/O section Family History Brother Eye cancer Social History Alcohol intake: never Patient Tobacco Use Status: Never used Tobacco Review of Systems Const Details: - Musculoskeletal: Limited range of motion in lumbar spine, pain on bending and backward extension - Neurological: Pain radiating to legs, denies weakness, bladder or bowel dysfunction or saddle anesthesia All systems reviewed & are unremarkable except as noted in HPI and below Physical Exam Vital Signs: Last Vital Signs Pulse 103 H 07/25/25 13:27 BP 140/81 H 07/25/25 13:27 Pulse Ox 97 07/25/25 13:27 Oxygen Delivery Method Room Air 07/25/25 13:27 BMI result Body Mass Index 30.9 General: Appears afebrile. Alert and oriented. Mood and affect appropriate. Follows and participates in conversation appropriately. Respiratory effort is unlabored. No cough. Able to transition from sit to stand unassisted. Ambulates with bilaterally normal heel strike and toe off. General: Yes no CVA tenderness Back/Spine/Pelvis Other: Patient is able to walk and stand on heels and tip toes with no difficulties demonstrating good motor tone. Normal gait, no limping. Can flex forward to 70-75 degrees and extend to 5-10 degrees before experiencing lumbar pain, worse pain with lumbar extension. Demonstrates 5/5 strength of quadriceps bilaterally as well as flexion/dorsiflexion of bilateral feet against resistance. 2+ pedal pulses bilaterally. Straight leg rise with dorsiflexion negative bilaterally. +2 patellar and achilles reflexes bilaterally. Facet loading test positive bilaterally. Zaida sign, Ronen?s, Gaenslen, Pelvic compression and Stinchfield tests are positive bilaterally. No groin pain with I/E hip rotations. Valsalva maneuver negative. Back: no CVA tenderness Cervical Spine: cervical ROM normal, cervical muscular tenderness and No Cervical spine tenderness Thoracic/Lumbar Spine: thoracic and lumbar spine normal to inspection, No Thoracic/lumbar spine scar(s), Lasegue's sign negative, straight leg raise negative bilaterally, pain with thoraco-lumbar ROM, paraspinal muscle tenderness, thoraco-lumbar ROM limited, No thoracic spinal tenderness and lumbar spinal tenderness (L4-S1) Pelvis: buttock tenderness bilaterally Sacroiliac joints: bilaterally tender to palpation Extrem General: Yes capillary refill normal, Yes no clubbing, cyanosis or edema and Yes no calf tenderness Results Reviewed Results Reviewed: MR LUMBAR SPINE WITHOUT CONTRAST 07/20/25 CLINICAL INFORMATION: Chronic low back pain with radiculopathy. COMPARISON: None available. TECHNIQUE: MRI of the lumbar spine was obtained using routine sequences without contrast. FINDINGS: Last rib-bearing vertebra labeled T12. No bone marrow STIR signal abnormality. Decreased intervertebral disc height and signal at L4-5 and L5-S1. Small Schmorl nodes in the endplates of T11 and T12. Focal hyperintense T2 signal in the right posterior intervertebral disc L5-S1 likely annular fissure. Alignment is normal. Conus medullaris ends at pedicle of L2 with normal signal. T12-L1: No central spinal canal or neuroforamina stenosis. No herniated disc. L1-2: No herniated disc. No central spinal canal or neuroforamina stenosis. L2-3: Broad-based disc bulging. Facet joint hypertrophy. No compression upon neural elements. L3-4: Broad-based disc bulging. Facet joint hypertrophy. No compression upon neural elements. L4-5: Broad-based disc bulging. Facet joint ligamentum flavum hypertrophy. Reduced AP diameter of the thecal sac and neuroforamina. L5-S1: Mild prominent epidural fat in a circumferential fashion. Broad-based disc bulging. Facet joint hypertrophy. Reduced AP diameter of the thecal sac. No prevertebral compartment hematoma, mass or fluid collection. IMPRESSION: Multilevel spondylosis from L3-4 to L5-S1 pronounced at L4-5 and L5-S1 without compression upon neural elements. Mild epidural lipomatosis at L5-S1. XR LUMBOSACRAL SPINE 04/20/25 CLINICAL INFORMATION: chronic low back pain COMPARISON: None available. TECHNIQUE: Three views of the lumbosacral spine. FINDINGS: There are 5 nonrib-bearing lumbar segments. Vertebral body height and alignment is preserved. L4-5 demonstrates mild disc space narrowing and small marginal osteophyte anteriorly. IMPRESSION: L4-5 demonstrates mild degenerative disc disease. Assessment & Plan Assessment & Plan (1) Lumbar degenerative disc disease: Code(s): M51.36 - Other intervertebral disc degeneration, lumbar region Category: Medical (2) Lumbosacral spondylosis: Code(s): M47.817 - Spondylosis without myelopathy or radiculopathy, lumbosacral region Category: Medical (3) Chronic low back pain: Code(s): M54.50 - Low back pain, unspecified; G89.29 - Other chronic pain Category: Medical (4) Sacroiliac joint pain: Code(s): M53.3 - Sacrococcygeal disorders, not elsewhere classified Category: Medical Plan The plan includes initiating pain management strategies due to the lack of improvement with physical therapy. Diagnostic injections are proposed to confirm the source of pain, specifically targeting axial low back pain and SI joint pain components. If the injections provide temporary relief, further interventions such as peripheral nerve stimulation or radiofrequency ablation may be considered for longer-term pain management. Informational pamphlets were provided to patient. Schedule diagnostic bilateral L3-L4 DR L5 medial branch blocks with local and fluoroscopy. Expectations, risks and benefits were reviewed. Patient is aware she will be contacted to schedule this procedure. The patient is advised to continue using lidocaine 5% patches, gabapentin and to start Tylenol Arthritis for better management of symptoms. I have informed patient that I do not offer opioid prescribing. Exercise is emphasized to strengthen core muscles and weight optimization for overall health improvement and reduce stress on joints and spine. All questions and concerns have been answered and patient agreed with the treatment plan. Follow up after injections and sooner as needed. Patient was informed and verbally consented to the use of an ambient scribe for clinic note documentation during this visit. Medications: New acetaminophen ER (Tylenol Arthritis Pain) 1,300 mg (2 x 650 mg) PO Q12H PRN 120 tabs 1RF pain 30 days G89.29 - Other chronic pain, M47.817 - Spondylosis without myelopathy or radiculopathy, lumbosacral region, M54.50 - Low back pain, unspecified Coding Level of Care Code New Pt Level 4 (73052) Diagnoses Lumbar degenerative disc disease M51.36 Lumbosacral spondylosis M47.817 Chronic low back pain M54.50; G89.29 Sacroiliac joint pain M53.3
[2025-07-25 13:27] VITALS: BP 140/81; PULSE 103; O2SAT 97; BMI 30.9
== END 2025-07-25 13:58 | disposition home or self-care (01) ==
LOC: HO.PMC 13:17
PROVIDERS: PCP Student in an Organized Health Care Education/Training Program; Visit Provider Nurse Practitioner Family
DX: M51.369 Other intervertebral disc degeneration, lumbar region without mention of lumbar back pain or lower extremity pain (principal); M47.817 Spondylosis without myelopathy or radiculopathy, lumbosacral region; M54.50 Low back pain, unspecified; G89.29 Other chronic pain; M53.3 Sacrococcygeal disorders, not elsewhere classified
CPT/HCPCS: 99204

== ENCOUNTER → 2025-07-25 13:16 | Outpatient (BNVA) | payer MEDICAID, SELFPAY | PROVIDERS: PCP Student in an Organized Health Care Education/Training Program; Visit Provider Nurse Practitioner Family | DX: M53.3 Sacrococcygeal disorders, not elsewhere classified (principal); M51.360 Other intervertebral disc degeneration, lumbar region with discogenic back pain only; G89.29 Other chronic pain; M47.817 Spondylosis without myelopathy or radiculopathy, lumbosacral region | CPT/HCPCS: 99212 ==